=== PATIENT | female | born 1945 | race Caucasian/White ===

== ENCOUNTER → 2016-10-03 | Outpatient (CLI) | payer MEDICARE ==
--- NOTE | 2016-10-07 07:33 | MM ---
Reason for exam: screening (asymptomatic). Last mammogram was performed 1 year and 1 month ago. History: Patient is postmenopausal. Family history of breast cancer in aunt. Took hormonal contraceptives for 3 years beginning at age 23. Physical Findings: A clinical breast exam by your physician is recommended on an annual basis and results should be correlated with mammographic findings. MG 3D Screening Mammo W/Cad Bilateral CC and MLO view(s) were taken. Prior study comparison: September 06, 2015, bilateral MG 3d screening mammo w/cad. July 26, 2014, bilateral MG screening mammo w CAD. December 28, 2012, bilateral digital screening mammo w/CAD. November 23, 2010, bilateral digital screening mammo w/CAD. The breast tissue is heterogeneously dense. This may lower the sensitivity of mammography. There is chronic nodularity in the left breast. Asymmetric density far posteriorly and inferiorly in the right breast incompletely disperses. ASSESSMENT: Incomplete: need additional imaging evaluation, BI-RAD 0 RECOMMENDATION: Special view mammogram of the right breast. If lesion persists on supplemental views, image directed ultrasound is recommended. [facility] will attempt to contact patient to return for supplemental views and ultrasound if indicated.
== END | disposition home or self-care (01) ==
LOC: RADMAMWWP 09:33
PROVIDERS: ATTEND Family Medicine
DX: Z12.31 Encounter for screening mammogram for malignant neoplasm of breast (principal)
CPT/HCPCS: 77063; G0202

== ENCOUNTER → 2016-10-08 | Outpatient (CLI) | payer MEDICARE ==
--- NOTE | 2016-10-08 09:46 | MM ---
Reason for exam: additional evaluation requested from abnormal screening. Last mammogram was performed less than 1 month ago. History: Patient is postmenopausal and has history of other cancer at age 70. Family history of prostate cancer in cousin and breast cancer in aunt. Took hormonal contraceptives for 3 years beginning at age 23. 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 MG 3D Work Up W/Cad RT MLO and LM view(s) were taken of the right breast. Prior study comparison: October 03, 2016, bilateral MG 3d screening mammo w/cad. September 06, 2015, bilateral MG 3d screening mammo w/cad. July 26, 2014, bilateral MG screening mammo w CAD. Asymmetric density does not persist as distinct lesion on additional views. These results were verbally communicated with the patient and result sheet given to the patient on 10/08/16. ASSESSMENT: Benign, BI-RAD 2 RECOMMENDATION: Return to routine screening mammogram schedule for both breasts.
== END ==
LOC: RADMAMWWP 08:45
PROVIDERS: ATTEND Family Medicine
DX: R92.8 Other abnormal and inconclusive findings on diagnostic imaging of breast (principal)
CPT/HCPCS: G0206; G0279

== ENCOUNTER → 2017-06-02 | Outpatient (CLI) | payer MEDICARE ==
[2017-06-02 12:50] LABS: Blood Urea Nitrogen 14 mg/dL (7-17); Non-African American GFR(MDRD) >60 (>60 ml/min/1.73 sqM)
--- NOTE | 2017-06-02 14:46 | CT ---
EXAMINATION TYPE: CT ChestAbdPelvis w con DATE OF EXAM: 06/02/2017 COMPARISON: 06/07/2016 HISTORY: Follow up ovarian cancer. Mid Abdominal pain for [address] DLP: 1690 mGycm. Automated Exposure Control for Dose Reduction was Utilized. CONTRAST: CT scan of the thorax, abdomen and pelvis is performed with IV Contrast, patient injected with 100 mL of Omnipaque 300. FINDINGS: LUNGS: The lungs are grossly clear, there is no concerning parenchymal mass or nodule identified. E longated area within the right middle lobe on series 4 image 30 measures rThere 6 mm and is similar t o the prior exam of 06/07/2016 and favored to represent chronic atelectasis or scarring. There is aga in chronic right hemidiaphragm elevation and right basilar atelectasis. Is no pleural effusion or pne umothorax seen. The tracheobronchial tree is patent. MEDIASTINUM: There are no greater than 1 cm hilar or mediastinal lymph nodes. No pericardial effusi on is seen. OTHER: No additional significant abnormality is seen. LIVER/GB: Within segment 7 of the right hepatic lobe there is a 7 mm hypoattenuated hepatic lesion th at is similar in size to the prior exam of 06/07/2016. No new hepatic lesions are identified. No intr ahepatic biliary ductal dilatation. No subcapsular implants are seen along the liver. No liver parenc hymal involvement. PANCREAS: No significant abnormality is seen. SPLEEN: No significant abnormality is seen. ADRENALS: Right adrenal gland nodule measures 2.0 x 2.2 cm and is not compatible with a simple cyst. This is minimally increased from the prior exam. KIDNEYS: No significant abnormality is seen. Bilateral extrarenal pelvises are noted. BOWEL: Postsurgical changes are seen at the rectosigmoid junction with decompression of the sigmoid c olon. No evidence of bowel obstruction. GENITAL ORGANS: Uterus is surgically absent. Ovaries are likely surgically absent LYMPH NODES: No greater than 1cm abdominal or pelvic lymph nodes are appreciated. OSSEOUS STRUCTURES: Mild multilevel degenerative changes of the thoracolumbar and lumbosacral spine a re present without suspicious osseous lesion. OTHER: In the region of the gastrohepatic ligament and just superior to the greater curvature and les ser curvature of the stomach on series 3 image 51 and on series 5 image 25 there are innumerable vert ebral soft tissue attenuated nodules which could represent omental metastasis, adenopathy or less lik rafiq varices. Spleen is not enlarged and there are no other signs of portal venous hypertension. IMPRESSION: 1. Numerous mesenteric nodules in the region of the gastrohepatic ligament and perihepatic regions wh ich could represent adenopathy, omental metastasis or less likely varices. These are not well appreci ated on the prior examination as there was abdominal ascites that has is now resolved. 2. Stable singular hepatic lesion in comparison to exam of 06/07/2016. Continued surveillance is deandre mmended. No evidence of subserosal implants or liver parenchymal involvement in this patient with his tory of ovarian cancer. 3. Minimally enlarging right adrenal gland nodule. Further characterization with MR could be performe d if clinically indicated.
== END | disposition home or self-care (01) ==
LOC: RADCTMAIN 12:10
PROVIDERS: ATTEND Internal Medicine Hematology & Oncology
DX: C56.9 Malignant neoplasm of unspecified ovary (principal); K76.9 Liver disease, unspecified; E27.9 Disorder of adrenal gland, unspecified
CPT/HCPCS: 82565; 84520; 71260; 74177; 36415; Q9967

== ENCOUNTER → 2017-08-18 | Outpatient (CLI) | payer MEDICARE ==
[2017-08-18 12:19] LABS: Blood Urea Nitrogen 11 mg/dL (7-17)
--- NOTE | 2017-08-18 13:35 | CT ---
EXAMINATION TYPE: CT ChestAbdPelvis w con DATE OF EXAM: 08/18/2017 COMPARISON: Prior CT 06/02/2017 HISTORY: Patient complains of periumbilical pain. Patient has known history of ovarian CA. CT DLP: 1271.6 mGycm Automated exposure control for dose reduction was used. CONTRAST: CT scan of the chest, abdomen and pelvis is performed with Oral Contrast and with IV Contrast, patien t injected with 100 mL of Omnipaque 300. FINDINGS: LUNGS: The lungs are stable. There is no pleural effusion or pneumothorax seen. The tracheobronchial tree is patent. MEDIASTINUM: There are no greater than 1 cm hilar or mediastinal lymph nodes. No pericardial effusi on is seen. AORTA: No significant abnormality is seen. OTHER: Within the abdomen there are multiple nodular mesenteric soft tissue lesions similar to prior exam. At least one nodule on image 89 was not seen on prior exam and shows a short axis measurement of only 5 mm. LIVER/GB: No significant interval change is appreciated. PANCREAS: No significant abnormality is seen. SPLEEN: No significant abnormality is seen. ADRENALS: No significant interval change. Nodules are present right greater than left KIDNEYS: Similar to prior. REPRODUCTIVE ORGANS: Postop changes are present. BOWEL: Postop change noted in the rectosigmoid colon. Soft tissue nodule is present in the presacral region measuring 14 mm in short axis on image #98 FREE AIR: No Free Air visible. ASCITES: None seen. RETROPERITONEAL ADENOPATHY: No retroperitoneal adenopathy is seen. LYMPH NODES: No greater than 1 cm abdominal or pelvic lymph nodes are appreciated. URINARY BLADDER: No significant abnormality is seen. PELVIC ADENOPATHY: None visualized. OSSEOUS STRUCTURES: No significant abnormality is seen. IMPRESSION: Findings are similar to prior. There may be a slight increase in tumor burden.
== END | disposition home or self-care (01) ==
LOC: RADCTMAIN 11:32
PROVIDERS: ATTEND Internal Medicine Hematology & Oncology
DX: K66.8 Other specified disorders of peritoneum (principal); C56.9 Malignant neoplasm of unspecified ovary; M79.89 Other specified soft tissue disorders; Z98.890 Other specified postprocedural states
CPT/HCPCS: 82565; 84520; 71260; 74177; 36415; Q9967

== ENCOUNTER → 2017-09-29 | Outpatient (CLI) | payer MEDICARE ==
[2017-09-29 08:54] LABS: Blood Urea Nitrogen 19 mg/dL (7-17)
--- NOTE | 2017-09-29 11:12 | CT ---
EXAMINATION TYPE: CT ChestAbdPelvis w con DATE OF EXAM: 09/29/2017 COMPARISON: NONE HISTORY: Ovarian cancer, follow up CT DLP: 1355.1 mGycm. Automated Exposure Control for Dose Reduction was Utilized. CONTRAST: CT scan of the thorax, abdomen and pelvis is performed with IV Contrast, patient injected with 100 mL of Omnipaque 300. FINDINGS: LUNGS: There is chronic right hemidiaphragm elevation is seen as prior images and right basilar subse gmental atelectasis. Right middle lobe atelectasis is also seen as well as an elongated area of scarr ing within the right middle lobe on series 4 image 28. This is stable from prior exams. The lungs are otherwise clear, there is no concerning parenchymal mass or nodule identified. There is no pleural effusion or pneumothorax seen. The tracheobronchial tree is patent. MEDIASTINUM: There are no greater than 1 cm hilar or mediastinal lymph nodes. No pericardial effusi on is seen. OTHER: There is a small hiatal hernia noted. LIVER/GB: New subcapsular implant is seen along the liver on series 3 image 46 measuring 4.5 x 2.4 ce ntimeters with more crescentic area of fluid around the right hepatic lobe on series 3 image 46. This is elongated in transverse dimension greater than anterior posterior dimension representing a subser osal implant rather than liver parenchymal invasion. The previously noted 7 mm hypoattenuated right h epatic lobe lesion on series 3 image 37 has been stable since exam of 06/07/2016. Gallbladder surgica lly absent. PANCREAS: No significant abnormality is seen. SPLEEN: No significant abnormality is seen. ADRENALS: Again there is a right adrenal gland nodule measuring approximately 2.3 x 2.1 cm, not corrie tible with a simple cyst. This is overall similar to the exam of 08/18/2017. KIDNEYS: Extrarenal pelvises sees are again noted. Kidneys enhance symmetrically without hydronephros is. BOWEL: Rectosigmoid anastomosis is again seen with mild presacral inflammatory fat stranding and are a of soft tissue nodularity that is similar to the prior on series 3 image 96. GENITAL ORGANS: Uterus is surgically absent and ovaries are presumed to be surgically absent as well. LYMPH NODES/MESENTERY: The previously seen numerous mesenteric nodules and omental nodules within the gastrohepatic ligament, right lower quadrant mesentery, low pelvis centrally and anterior central me sentery of the pelvis have increased in size. For example mesenteric nodule on series 3 image 67 terry ures 1.2 x 1.4 cm and previously measured 6 x 5 mm. OSSEOUS STRUCTURES: Moderate degenerative changes of the visualized spine, femoral acetabular joints, and sacroiliac joints are seen. Scattered femoral head probable bone islands are noted. IMPRESSION: 1. Progression of disease. New subserosal hepatic metastatic implant without current liver parenchyma l invasion measuring 4.5 x 2.4 cm and increase in size of the scattered mesenteric metastatic nodules (likely a combination of omental implants and adenopathy). 2. Stability of the right adrenal gland nodule. 3. No new evidence of metastatic disease within the chest.
== END | disposition home or self-care (01) ==
LOC: RADCTMAIN 08:15
PROVIDERS: ATTEND Internal Medicine Hematology & Oncology
DX: C78.7 Secondary malignant neoplasm of liver and intrahepatic bile duct (principal); C56.9 Malignant neoplasm of unspecified ovary; E27.8 Other specified disorders of adrenal gland; Z96.89 Presence of other specified functional implants
CPT/HCPCS: 82565; 84520; 71260; 74177; 36415; Q9967

== ENCOUNTER → 2018-01-23 | Outpatient (CLI) | payer MEDICARE ==
--- NOTE | 2018-01-23 13:20 | CT ---
EXAMINATION TYPE: CT ChestAbdPelvis w con DATE OF EXAM: 01/23/2018 COMPARISON: CT chest abdomen and pelvis September 29, 2017 and older studies. HISTORY: Ovarian Cancer, Observe for Mets. Completed chemotherapy December 30, 2017. Originally diagnosed 1.[address] DLP: 1781 mGycm. Automated Exposure Control for Dose Reduction was Utilized. CONTRAST: CT scan of the thorax, abdomen and pelvis is performed with IV Contrast, patient injected with 100 ml mL of Isovue 300. FINDINGS: LUNGS: There are small right pleural effusion on current study increased in size from prior. No suspi cious new parenchymal nodule or mass is present bilaterally. Elevated right hemidiaphragm is redemons trated. MEDIASTINUM: There are no greater than 1 cm hilar or mediastinal lymph nodes. No pericardial effusi on is seen. Mild cardiomegaly is redemonstrated. OTHER: There is stable prominent tissue medial inferior left breast axial image 31 not significantly changed from June 07, 2016 CT LIVER/GB: Small amount of perihepatic fluid laterally is redemonstrated slightly less prominent. Ante rior component is improved. There is stable subcentimeter hypodense lesion posterior right hepatic do me axial image 37 unchanged back to June 07, 2016 CT. Cholecystectomy clips are redemonstrated. PANCREAS: No significant abnormality is seen. SPLEEN: There is 1.1 cm splenic lesion axial image 51 stable or slightly more prominent from prior st and new from 2016. ADRENALS: Right adrenal mass measures 2.3 x 1.8 cm current study axial image 50 not significantly chadwick nged from priors. KIDNEYS: No significant abnormality is seen. BOWEL: Oral contrast reaches level of hepatic flexure. There is no suspicious small or large bowel di latation. There is lipomatous hypertrophy at the ileocecal valve redemonstrated. There are surgical s utures near sigmoid rectal junction axial image 101 redemonstrated. GENITAL ORGANS: Uterus is surgically absent. LYMPH NODES: Irregular mesenteric nodular thickening is redemonstrated difficult to accurately measur e due to linear extension. No significant change from most recent study seen best near axial image 86 . For reference a nodular component measuring 1.0 cm long axis axial image 81 is not significantly ch anged from prior study axial image 74. Omental nodularity seen on May 2016 study is less well id entified on current or most recent prior study. OSSEOUS STRUCTURES: There is moderate multilevel spurring in the visualized spine. There is multileve l disc space narrowing and vacuum disc phenomenon. There is moderate to severe joint space loss as we ll as subchondral cystic change and spurring in both hips. OTHER: No significant additional abnormality is seen. IMPRESSION: 1. New or increasing size small right pleural effusion on current exam. 2. Nonvisualization of anterior subserosal liver lesion current study suggests positive treatment res ponse or resolution of nondependent fluid collection. No new abdominal ascites or omental caking is e vident. Stable nonspecific mesenteric nodularity and irregularity. Stable right adrenal mass.
== END | disposition home or self-care (01) ==
LOC: RADCTMAIN 10:29
PROVIDERS: ATTEND Internal Medicine Hematology & Oncology
DX: C56.9 Malignant neoplasm of unspecified ovary (principal); J90 Pleural effusion, not elsewhere classified; K76.9 Liver disease, unspecified; E27.8 Other specified disorders of adrenal gland; K66.8 Other specified disorders of peritoneum
CPT/HCPCS: 82565; 84520; 71260; 74177; 36415; Q9967

== ENCOUNTER → 2018-02-03 | Outpatient (CLI) | payer MEDICARE ==
--- NOTE | 2018-02-04 11:18 | ECHOF ---
Referral Reason:Z01.818 Chemo, C56.9 Ovarian Cancer MEASUREMENTS -------- HEIGHT: 160.0 cm WEIGHT: 95.3 kg BP: RVIDd: 2.7 cm (< 3.3) IVSd: 0.9 cm (0.6 - 1.1) LVIDd: 5.3 cm (3.9 - 5.3) LVPWd: 1.1 cm (0.6 - 1.1) IVSs: 1.2 cm LVIDs: 4.0 cm LVPWs: 1.2 cm LAESV Index (A-L): 40.80 ml/m Ao Diam: 2.8 cm (2.0 - 3.7) AV Cusp: 1.7 cm (1.5 - 2.6) LA Diam: 4.0 cm (2.7 - 3.8) EPSS: 0.9 cm MV E Vladimir: 0.73 m/s MV DecT: 252 ms MV A Vladimir: 0.78 m/s MV E/A Ratio: 0.93 RAP: 5.00 mmHg RVSP: 24.85 mmHg MV EF SLOPE: 93.57 mm/s (70 - 150) MV EXCURSION: 1.35 cm (> 18.000) FINDINGS -------- Atrial fibrillation. This was a technically adequate study. The left ventricular size is normal. Left ventricular wall thickness is normal. There is mild hermann bal hypokinesis of LV . Overall left ventricular systolic function is mildly impaired with, an EF b etween 45 - 50 %. The right ventricle is normal in size and function. LA is severely dilated >40 ml/m2 RA appears enlarged. Aortic valve is trileaflet and is mildly thickened. Trace amount of aortic regurgitation. There is no evidence of aortic stenosis. The mitral valve leaflets are mildly thickened. Mild mitral regurgitation is present. Trace tricuspid regurgitation present. Right ventricular systolic pressure is normal at < 35 mmHg. There is no evidence of pulmonary hypertension. Trace/mild (physiologic) pulmonic regurgitation. The aortic root size is normal. Normal inferior vena cava with normal inspiratory collapse consistent with estimated right atrial pre ssure of 5 mmHg. There is no pericardial effusion. CONCLUSIONS -------- 1. Atrial fibrillation. 2. This was a technically adequate study. 3. The left ventricular size is normal. 4. Left ventricular wall thickness is normal. 5. There is mild global hypokinesis of LV . 6. Overall left ventricular systolic function is mildly impaired with, an EF between 45 - 50 %. 7. LA is severely dilated >40 ml/m2 8. RA appears enlarged. 9. Aortic valve is trileaflet and is mildly thickened. 10. Trace amount of aortic regurgitation. 11. The mitral valve leaflets are mildly thickened. 12. Mild mitral regurgitation is present. 13. Trace tricuspid regurgitation present. 14. Right ventricular systolic pressure is normal at < 35 mmHg. 15. There is no evidence of pulmonary hypertension. 16. Trace/mild (physiologic) pulmonic regurgitation. 17. The aortic root size is normal. 18. There is no pericardial effusion. TRAINMAN: Gee Phillips RDCS
== END | disposition home or self-care (01) ==
LOC: RADECHMAIN 15:20
PROVIDERS: ATTEND Internal Medicine Hematology & Oncology
DX: Z01.818 Encounter for other preprocedural examination (principal); C56.9 Malignant neoplasm of unspecified ovary; I48.91 Unspecified atrial fibrillation; I08.0 Rheumatic disorders of both mitral and aortic valves; R93.1 Abnormal findings on diagnostic imaging of heart and coronary circulation
CPT/HCPCS: 93306

== ENCOUNTER 2018-03-31 14:33 | Inpatient (IN) | payer MEDICARE ==
[2018-03-31] MEDS ORDERED: DILTIAZEM DRIP BOLUS FROM BAG 1 MG SOLN IV ONE (14:57)
--- NOTE | 2018-03-31 15:00 | ED ---
General Adult HPI - General Chief complaint: Shortness of Breath Stated complaint: heart rate-sent by Dr. Badillo Time Seen by Provider: 03/31/18 14:51 Source: patient, family, RN notes reviewed Mode of arrival: ambulatory Limitations: no limitations - History of Present Illness Initial comments: Patient is a pleasant 72-year-old female presenting to the emergency department with concerns for tachycardia. Patient was seen today by Dr. Badillo who advised her to come to the emergency department. He did call and speak with me. Patient does see Dr. Badillo for a known history of ovarian cancer and is on chemotherapy, last dose was close to one month ago. Patient has been having aches. Seen some palpitations over the past several days. Heart rate has been between 101 20. No chest pain. Patient is starting to feel a little short of breath over the past several days. Patient does have some minimal leg swelling. No calf tenderness. No fevers. No cough. Patient has a known history of atrial fibrillation and is on Eliquis. - Related Data Home Medications Medication Instructions Recorded Confirmed Calcium Carbonate [Calcium] 600 mg PO DAILY #0 03/04/16 03/31/18 Cholecalciferol [Vitamin D3] 2,000 unit PO DAILY 03/04/16 03/31/18 Metoprolol Tartrate [Lopressor] 50 mg PO BID 05/16/16 03/31/18 Furosemide [Lasix] 20 mg PO DAILY PRN 03/31/18 03/31/18 Lisinopril [Zestril] 10 mg PO BID 03/31/18 03/31/18 Previous Rx's Medication Instructions Recorded Apixaban [Eliquis] 5 mg PO BID #30 tab 03/06/16 Allergies Allergy/AdvReac Type Severity Reaction Status Date / Time No Known Allergies Allergy Verified 03/31/18 15:54 Review of Systems ROS Statement: Those systems with pertinent positive or pertinent negative responses have been documented in the HPI. ROS Other: All systems not noted in ROS Statement are negative. Constitutional: Denies: fever Eyes: Denies: eye pain ENT: Denies: ear pain Respiratory: Reports: dyspnea. Denies: cough Cardiovascular: Reports: palpitations. Denies: chest pain Endocrine: Reports: fatigue Gastrointestinal: Denies: abdominal pain Genitourinary: Denies: dysuria Musculoskeletal: Denies: back pain Skin: Denies: rash Neurological: Denies: weakness Past Medical History Past Medical History: Atrial Fibrillation, Hyperlipidemia, Hypertension History of Any Multi-Drug Resistant Organisms: None Reported Past Surgical History: Appendectomy, Cholecystectomy, Hysterectomy, Tonsillectomy, Tubal Ligation Additional Past Surgical History / Comment(s): colonoscopies, cervical polypectomy, couple of D&Cs, debulking Past Anesthesia/Blood Transfusion Reactions: No Reported Reaction Past Psychological History: No Psychological Hx Reported Smoking Status: Never smoker Past Alcohol Use History: Rare Past Drug Use History: None Reported - Past Family History Mother Family Medical History: AFIB, Chest Pain / Angina, Diabetes Mellitus, Hypertension Additional Family Medical History / Comment(s): Mother is 90 yrs old. Father Family Medical History: Cancer Additional Family Medical History / Comment(s): Father of lung cancer at the age of 78yrs. General Exam Limitations: no limitations General appearance: alert, in no apparent distress Head exam: Present: atraumatic Eye exam: Present: normal appearance, PERRL ENT exam: Present: normal oropharynx Neck exam: Present: normal inspection Respiratory exam: Present: normal lung sounds bilaterally Cardiovascular Exam: Present: tachycardia, irregular rhythm GI/Abdominal exam: Present: soft. Absent: tenderness Extremities exam: Present: pedal edema (+1 bilaterally). Absent: calf tenderness Neurological exam: Present: alert Psychiatric exam: Present: normal affect, normal mood Skin exam: Present: normal color Course Vital Signs 03/31/18 03/31/18 03/31/18 14:41 14:51 14:52 Temperature 97.4 F L Pulse Rate 137 H Pulse Rate [ 155 H [employer] ] Respiratory 16 16 Rate Blood Pressure 150/101 O2 Sat by Pulse 95 Oximetry 03/31/18 03/31/18 03/31/18 15:34 15:58 16:04 Temperature Pulse Rate 137 H 133 H 120 H Pulse Rate [ [employer] ] Respiratory 16 16 Rate Blood Pressure 149/107 106/73 134/73 O2 Sat by Pulse 98 Oximetry 03/31/18 16:14 Temperature Pulse Rate 100 Pulse Rate [ [employer] ] Respiratory Rate Blood Pressure 124/81 O2 Sat by Pulse Oximetry EKG Findings - EKG Comments: EKG Findings:: A. fib with rate of 142. QRS 120. QT 292. QTC 449. Normal axis.RSR in lead V1. Inferior T wave inversion. There is also T-wave inversion leads V3 through V6. Medical Decision Making - Medical Decision Making Patient reevaluated and resting comfortably in bed. Patient and family updated on results and plan. Dr. Romero has been paged for admission for Dr. Roberts. - Lab Data Result diagrams: 03/31/18 15:17 03/31/18 15:17 Lab Results 03/31/18 03/31/18 03/31/18 Range/Units 15:17 15:17 15:17 WBC 2.2 L (3.8-10.6) k/uL RBC 4.09 (3.80-5.40) m/uL Hgb 12.7 (11.4-16.0) gm/dL Hct 40.0 (34.0-46.0) % MCV 97.7 (80.0-100.0) fL MCH 30.9 (25.0-35.0) pg MCHC 31.7 (31.0-37.0) g/dL RDW 18.0 H (11.5-15.5) % Plt Count 74 L (150-450) k/uL Neutrophils % 45 % Lymphocytes % 40 % Monocytes % 10 % Eosinophils % 1 % Basophils % 1 % Neutrophils # 1.0 L (1.3-7.7) k/uL Lymphocytes # 0.9 L (1.0-4.8) k/uL Monocytes # 0.2 (0-1.0) k/uL Eosinophils # 0.0 (0-0.7) k/uL Basophils # 0.0 (0-0.2) k/uL Manual Slide Review Performed Polychromasia Present Poikilocytosis (manual Present Anisocytosis Slight Macrocytosis Slight PT (9.0-12.0) sec INR (<1.2) APTT (22.0-30.0) sec Sodium 142 (137-145) mmol/L Potassium 4.7 (3.5-5.1) mmol/L Chloride 107 (98-107) mmol/L Carbon Dioxide 24 (22-30) mmol/L Anion Gap 11 mmol/L BUN 23 H (7-17) mg/dL Creatinine 0.90 (0.52-1.04) mg/dL Est GFR (CKD-EPI)AfAm 75 (>60 ml/min/1.73 sqM) Est GFR (CKD-EPI)NonAf 65 (>60 ml/min/1.73 sqM) Glucose 112 H (74-99) mg/dL Calcium 9.0 (8.4-10.2) mg/dL Magnesium 1.2 L (1.6-2.3) mg/dL Total Bilirubin 0.8 (0.2-1.3) mg/dL AST 32 (14-36) U/L ALT 27 (9-52) U/L Alkaline Phosphatase 86 (38-126) U/L Total Creatine Kinase 50 (30-135) U/L CK-MB (CK-2) 0.5 (0.0-2.4) ng/mL CK-MB (CK-2) Rel Index 1.0 Troponin I 0.012 (0.000-0.034) ng/mL NT-Pro-B Natriuret Pep pg/mL Total Protein 6.6 (6.3-8.2) g/dL Albumin 3.8 (3.5-5.0) g/dL TSH 2.870 (0.465-4.680) mIU/L Free T4 2.04 (0.78-2.19) ng/dL Free T3 pg/mL 4.2 (2.8-5.3) pg/ml 03/31/18 03/31/18 Range/Units 15:17 15:17 WBC (3.8-10.6) k/uL RBC (3.80-5.40) m/uL Hgb (11.4-16.0) gm/dL Hct (34.0-46.0) % MCV (80.0-100.0) fL MCH (25.0-35.0) pg MCHC (31.0-37.0) g/dL RDW (11.5-15.5) % Plt Count (150-450) k/uL Neutrophils % % Lymphocytes % % Monocytes % % Eosinophils % % Basophils % % Neutrophils # (1.3-7.7) k/uL Lymphocytes # (1.0-4.8) k/uL Monocytes # (0-1.0) k/uL Eosinophils # (0-0.7) k/uL Basophils # (0-0.2) k/uL Manual Slide Review Polychromasia Poikilocytosis (manual Anisocytosis Macrocytosis PT 11.7 (9.0-12.0) sec INR 1.2 H (<1.2) APTT 22.0 (22.0-30.0) sec Sodium (137-145) mmol/L Potassium (3.5-5.1) mmol/L Chloride (98-107) mmol/L Carbon Dioxide (22-30) mmol/L Anion Gap mmol/L BUN (7-17) mg/dL Creatinine (0.52-1.04) mg/dL Est GFR (CKD-EPI)AfAm (>60 ml/min/1.73 sqM) Est GFR (CKD-EPI)NonAf (>60 ml/min/1.73 sqM) Glucose (74-99) mg/dL Calcium (8.4-10.2) mg/dL Magnesium (1.6-2.3) mg/dL Total Bilirubin (0.2-1.3) mg/dL AST (14-36) U/L ALT (9-52) U/L Alkaline Phosphatase (38-126) U/L Total Creatine Kinase (30-135) U/L CK-MB (CK-2) (0.0-2.4) ng/mL CK-MB (CK-2) Rel Index Troponin I (0.000-0.034) ng/mL NT-Pro-B Natriuret Pep 6070 pg/mL Total Protein (6.3-8.2) g/dL Albumin (3.5-5.0) g/dL TSH (0.465-4.680) mIU/L Free T4 (0.78-2.19) ng/dL Free T3 pg/mL (2.8-5.3) pg/ml - Radiology Data Radiology results: image reviewed (Chest x-ray shows right-sided effusion and small left-sided effusion.) Critical Care Time Critical Care Time: Yes Total Critical Care Time: 33 Disposition Clinical Impression: Atrial fibrillation with RVR, Hypomagnesemia, Pleural effusion Disposition: ADMITTED IP TO THIS [facility] Is patient prescribed a controlled substance at d/c from ED?: No Referrals: Sergey Roberts DO [Primary Care Provider] - 1-2 days Decision Time: 16:34
[2018-03-31] MEDS: DILTIAZEM 50 MG in SODIUM CHLORIDE 0.9% 40 ML IV SCH ×2 (15:34→20:00)
[2018-03-31 15:35] LABS: Anisocytosis Slight; Basophils % (A) 1 %; Eosinophils % (A) 1 %; HGB 12.7 gm/dL (11.4-16.0); Lymphocytes # (A) 0.9 k/uL (1.0-4.8); Lymphocytes % (A) 40 %; MCH 30.9 pg (25.0-35.0); MCHC 31.7 g/dL (31.0-37.0); MCV 97.7 fL (80.0-100.0); Macrocytosis Slight; Mean Platelet Volume 7.9; Monocytes # (A) 0.2 k/uL (0-1.0); Monocytes % (A) 10 %; Neutrophils % (A) 45 %; RBC 4.09 m/uL (3.80-5.40); WBC 2.2 k/uL (3.8-10.6)
[2018-03-31 15:39] LABS: Albumin 3.8 g/dL (3.5-5.0); Magnesium 1.2 mg/dL (1.6-2.3); Total Bilirubin 0.8 mg/dL (0.2-1.3); Total Protein 6.6 g/dL (6.3-8.2)
[2018-03-31 15:44] LABS: Potassium 4.7 mmol/L (3.5-5.1)
[2018-03-31 15:55] LABS: Platelet Count 74 k/uL (150-450); Poikilocytosis (M) Present; Polychromasia Present; T4, Free (Free Thyroxine) 2.04 ng/dL (0.78-2.19)
[2018-03-31 15:56] LABS: INR 1.2 (<1.2); Prothrombin Time 11.7 sec (9.0-12.0)
[2018-03-31 16:03] LABS: Creatine Kinase MB 0.5 ng/mL (0.0-2.4); Troponin I 0.012 ng/mL (0.000-0.034)
--- NOTE | 2018-03-31 16:28 | XR ---
EXAMINATION: XR chest 2V DATE AND TIME: 03/31/2018 3:48 PM CLINICAL INDICATION: dysrhythmia, shortness of breath TECHNIQUE: AP and lateral COMPARISON: 03/04/2016 FINDINGS: The pleural effusions seen on the prior study of increased. On the right, a large pleural effusion previously was seen level that the infrahilar position, now it is at the hilar level. There is associated passive atelectasis of the right lower lobe and right mid dle lobe, with mild partial right upper lobe atelectasis. No right-sided pneumothorax. On the left the formerly mild pleural effusion is now [id number] in its volume. There is associ ated partial passive atelectasis of the left lower lobe. No left-sided pneumothorax. Evaluation of the inflated lungs shows relatively normal arborization of the pulmonary vasculature bi laterally there is engorgement of the pulmonary vasculature centrally, but no reticular or alveolar s pace process. Moderately enlarged cardiac silhouette and mild tortuosity of the thoracic aorta redemonstrated. Bones and soft tissues are negative for acute findings. IMPRESSION: INCREASING PLEURAL EFFUSIONS, MARKED ON THE RIGHT AND [id number] ON THE LEFT; ASSOCIATED BILATE RAL PASSIVE ATELECTASIS PATTERN.
[2018-03-31] MEDS ORDERED: MAGNESIUM OXIDE 400 MG TAB PO STA (16:32)
[2018-03-31] MEDS ORDERED: NALOXONE 0.4 MG/ML 1 ML VIAL IV PRN (16:34)
[2018-03-31] MEDS ORDERED: FUROSEMIDE 10 MG/ML 4 ML VIAL IV STA (16:34)
[2018-03-31] MEDS: SODIUM CHLORIDE 0.9% 1,000 ML IV SCH (17:36)
[2018-03-31] MEDS: MAGNESIUM SULFATE-D5W PMX 1 GM in DEXTROSE/WATER 1 100ML.BAG IVPB SCH ×2 (17:36→20:00)
[2018-03-31 18:36] VITALS: BMI 37.4
[2018-03-31] MEDS: MAGNESIUM OXIDE 400 MG TAB PO SCH (20:00)
[2018-03-31] MEDS: LISINOPRIL 10 MG TAB PO SCH (21:47)
[2018-03-31] MEDS: APIXABAN 5 MG TAB PO SCH (21:47)
[2018-03-31] MEDS: METOPROLOL TARTRATE 50 MG TAB PO SCH (21:47)
[2018-03-31 22:18] LABS: Creatine Kinase MB 0.5 ng/mL (0.0-2.4); Troponin I 0.014 ng/mL (0.000-0.034)
[2018-03-31] MEDS ORDERED: MELATONIN 3 MG TABLET PO PRN (22:32)
[2018-03-31] MEDS ORDERED: ONDANSETRON 4 MG/2 ML VIAL IVP PRN (22:32)
[2018-03-31] MEDS ORDERED: ACETAMINOPHEN TAB 325 MG TAB PO PRN (22:32)
[2018-03-31] MEDS ORDERED: CALCIUM CARBONATE 500 MG CHEWABLE PO PRN (22:32)
[2018-03-31] MEDS ORDERED: LORazepam 0.5 MG TAB PO PRN (22:32)
--- NOTE | 2018-03-31 23:09 | HP ---
HISTORY AND PHYSICAL DATE OF ADMISSION: 03/31/2018 DATE OF SERVICE: 03/31/2018 PRESENTING COMPLAINT: Short of breath. HISTORY OF PRESENTING COMPLAINT: This is a very pleasant 72-year-old patient who follows with Dr. Roberts. The patient's oncologist is Dr. Badillo. The patient has a diagnosis of ovarian cancer. The patient is getting a third category of chemotherapy and she says she is going through a second cycle. She had gone for a checkup to him today. She had been getting short of breath for about a week, very subtle fluttering; no dizziness; no lightheadedness; very mild edema. No chest pressure. She was found to be in atrial flutter/fibrillation with a rapid ventricular rate and was hence sent down to the ER. The patient was started on IV Cardizem drip. Still the patient is running in the 110s to the 130s, though patient feels a bit better. No chest pain. Cardiology is consulted for the same. REVIEW OF SYSTEMS: CONSTITUTIONAL: Tired. HEENT: None. RESPIRATORY: As above. CARDIOVASCULAR: As above. GASTROINTESTINAL: None. GENITOURINARY: Urinary incontinence. DERMATOLOGICAL: None. HEMATOLOGICAL: None. LYMPHATICS: None. PSYCHIATRY: None. NEUROLOGICAL: None. PAST MEDICAL HISTORY: 1. Ovarian cancer, being followed by Dr. Badillo. 2. Hypertension. 3. Hyperlipidemia. 4. Atrial flutter. PAST SURGICAL HISTORY: 1. Appendectomy. 2. Cholecystectomy. 3. Hysterectomy. 4. Tonsillectomy. 5. Tubal ligation. 6. A couple of D&C. SOCIAL HISTORY: . Alcohol rarely. Does not smoke. FAMILY HISTORY: Atrial fibrillation, diabetes, hypertension. HOME MEDICATIONS: 1. Lasix 20 mg p.o. daily p.r.n. 2. Lopressor 50 mg p.o. b.i.d. 3. Zestril 10 mg p.o. b.i.d. 4. Vitamin D3 2000 units p.o. daily. 5. Calcium 600 mg p.o. daily. 6. Eliquis 5 mg p.o. b.i.d. ALLERGIES: DILAUDID. PHYSICAL EXAMINATION: VITAL SIGNS ON PRESENTATION: Temperature 97.4, pulse 137, respiration 16, blood pressure 150/101, pulse ox 95% on room air. GENERAL APPEARANCE: Well built; BMI 37.5. Sitting up, not in distress. EYES: Pupils equal. Conjunctivae normal. HEENT: External appearance of nose and ears normal. Oral cavity normal. NECK: JVD unable to assess. Mass not palpable. RESPIRATORY: Effort normal. LUNGS: Fair air entry. CARDIOVASCULAR: Heart sounds irregular. Minimal edema. ABDOMEN: Distended, soft. Liver and spleen not palpable. LYMPHATIC: No lymph node palpable in neck or axillae. PSYCHIATRY: Alert and oriented x3. Mood and affect normal. NEUROLOGICAL: Pupils equal. Cranial nerves grossly intact. Power and sensation grossly intact. INVESTIGATIONS: White count 2.2, hemoglobin 12.7, platelets 74. Potassium 4.7, BUN 23, creatinine 0.9. Troponin 0.012, 0.014. TSH is normal. EKG tracing interpreted by me shows atrial flutter/fibrillation with . Chest x-ray film interpreted by me shows some cardiomegaly, right pleural effusion, venous prominence. ASSESSMENT: 1. Persistent atrial flutter/fibrillation with rapid ventricular rate. 2. Acute congestive heart failure exacerbation, possibly precipitated by atrial fibrillation; currently ejection fraction is not known. 3. Essential hypertension. 4. Hyperlipidemia. 5. Obesity; body mass index 37.5. 6. Breast cancer, being treated with chemotherapy. 7. Bicytopenia secondary to chemotherapy. PLAN: The patient is currently on a Cardizem drip. She is on Lopressor 50 mg b.i.d., which is her home dose. Will order a 2-D echocardiogram. Start the patient on IV Lasix. Care was discussed with the patient. Questions were answered. MMODL / IJN: [id number] /
[2018-04-01] MEDS: DILTIAZEM 50 MG in SODIUM CHLORIDE 0.9% 40 ML IV SCH ×2 (04:11→11:32)
[2018-04-01 04:13] LABS: Creatine Kinase 50 U/L (30-135)
[2018-04-01 04:26] LABS: Creatine Kinase MB 0.6 ng/mL (0.0-2.4); Troponin I <0.012 ng/mL (0.000-0.034)
[2018-04-01] MEDS: FUROSEMIDE 10 MG/ML 4 ML VIAL IV SCH ×4 (06:38→21:27)
[2018-04-01] MEDS: APIXABAN 5 MG TAB PO SCH (07:47)
[2018-04-01] MEDS: CALCIUM CARB-VIT D 500MG-200UN 1 EACH TAB PO SCH (07:48)
[2018-04-01] MEDS: METOPROLOL TARTRATE 50 MG TAB PO SCH ×3 (07:48→21:26)
[2018-04-01] MEDS: LISINOPRIL 10 MG TAB PO SCH ×2 (07:48→21:26)
[2018-04-01] MEDS: MAGNESIUM OXIDE 400 MG TAB PO SCH ×2 (07:48→21:26)
[2018-04-01] MEDS: CHOLECALCIFEROL 1,000 UNIT TAB PO SCH (07:48)
[2018-04-01] MEDS: DIGOXIN 250 MCG/ML 2 ML AMP IVP SCH ×2 (11:32→17:21)
--- NOTE | 2018-04-01 13:51 | P.CONS ---
History of Present Illness - Reason for Consult Consult date: 04/01/18 Metastatic Ovarian Cancer Requesting physician: Damian Lemos - Chief Complaint Palpitations and SOB - History of Present Illness HPI : This is a very nice lady who presented with abdominal pain and distension for about a month duration. U/S done on 05/10/2016 revealed evidence of ascites. Diagnostic paracentesis done on 05/24/2016,cytology revealed metastatic carcinoma consistent with non mucinous ovarian primary. On 06/03/2016,CA125 was 499. On 06/07/2016,CT scan of chest/abdomen/pelvis revealed ascites,omental cacking and small bilateral pleural effusion. BRCA testing were negative. She underwent optimal debulking surgery on 06/18/2016,R1 resection,her surgery was complicated by PE.Pathology revealed high grade serous adenocarcinoma, positive peritoneal washing and peritoneal mestastasis over 2 cm beyond pelvis and positive mesenteric nodes. She started carboplatin/taxol on 08/05/2016. She completed 6 cycles of adjuvant carboplatin/taxol on 11/18/2016 On 02/27/2017,CA125 was 13.0. On 06/02/2017,repeat CT scan of chest/abdomen/plevis revealed mesenteric nodules in the region of the gastrohepatic ligament and perihepatic regions which could represent adenopathy, omental metastasis,they are not well appreciated on the prior examination as there was abdominal ascites that has is now resolved. On 08/18/2017,repeat CT scan of chest/abdomen/pelvis revealed relatively stable finding compared to prior CT. On 08/26/2017,CA125 was 84.5. On 09/29/2017,repeat CT scan of chest/abdomen/pelvis revealed evidence of disease progression. On 10/07/2017,CA125 was 146.7 She started gemzar/avastin on 10/15/2017 On 01/07/2018,CA125 was up to 205 and carbo/avastin were discontinued On 01/23/2018,repeat CT scan of chest/abdomen/pelvis revealed new small right pleural effusion,otherwise stable.Gemzar/avastin were discontinued. On 01/28/2018,CA125 was 253 On 02/10/2018,she started Carboplatin/Doxil, prior to starting Echocardiogram was completed On 03/04/2018,CA125 was 313.1, Recent follow-up with Dr. Badillo shows Ca125 279 She feels tolerating treatment okay,however,she has had significant exertional dyspnea and palpitation over the last week, this had led her to seek further assessment at [facility] on 04/01/18. She has a known history of A-fib and is on Eliquis 5mg po bid for this. Patient has been having more body aches. [place] increased palpitations over the past several days. Heart rate has been between 101-120. No chest pain. Patient is starting to feel a little short of breath over the past several days. Patient does have some minimal leg swelling. No calf tenderness. No fevers. No cough. She is now admitted on a cardizem drip and Cardiology is following. Her next cycle of chemotherapy is scheduled on 04/07/18. She is status Post Cycle 2 of Doxil and Carboplatin, Neutrophils 03/31/18 - 1, WBC 2.2. She did not receive Neulasta Review of Systems A 14 point review of systems assessed and completed and all negative except HPI Past Medical History Past Medical History: Atrial Fibrillation, Cancer, Hyperlipidemia, Hypertension , Pulmonary Embolus (PE) Additional Past Medical History / Comment(s): Ovarian Cancer History of Any Multi-Drug Resistant Organisms: None Reported Past Surgical History: Appendectomy, Cholecystectomy, Hysterectomy, Tonsillectomy, Tubal Ligation Additional Past Surgical History / Comment(s): colonoscopies, 2x cervical polypectomy, couple of D&Cs, debulking, Past Anesthesia/Blood Transfusion Reactions: No Reported Reaction Past Psychological History: No Psychological Hx Reported Additional Psychological History / Comment(s): Pt resides with her spouse. She is independent. Smoking Status: Never smoker Past Alcohol Use History: Rare Past Drug Use History: None Reported - Past Family History Mother Family Medical History: AFIB, Chest Pain / Angina, Diabetes Mellitus, Hypertension Additional Family Medical History / Comment(s): Mother is 90 yrs old. Father Family Medical History: Cancer Additional Family Medical History / Comment(s): Father of lung cancer at the age of 78yrs. Medications and Allergies Home Medications Medication Instructions Recorded Confirmed Type Calcium Carbonate [Calcium] 600 mg PO DAILY #0 03/04/16 03/31/18 History Cholecalciferol [Vitamin D3] 2,000 unit PO DAILY 03/04/16 03/31/18 History Apixaban [Eliquis] 5 mg PO BID #30 tab 03/06/16 03/31/18 Rx Metoprolol Tartrate [Lopressor] 50 mg PO BID 05/16/16 03/31/18 History Furosemide [Lasix] 20 mg PO DAILY PRN 03/31/18 03/31/18 History Lisinopril [Zestril] 10 mg PO BID 03/31/18 03/31/18 History Allergies Allergy/AdvReac Type Severity Reaction Status Date / Time hydromorphone [From Dilaudid] AdvReac Hallucinati Verified 03/31/18 18:42 ons Physical Exam Vitals: Vital Signs Temp Pulse Pulse Resp BP BP Pulse Ox 04/01/18 12:00 103 H 16 04/01/18 11:28 103 H 16 149/98 93 L 04/01/18 07:44 90 16 04/01/18 07:33 90 16 137/93 92 L 04/01/18 03:25 97.3 F L 108 H 18 131/92 95 04/01/18 00:00 97.2 F L 99 18 151/84 96 03/31/18 20:00 97.1 F L 121 H 18 138/96 93 L 03/31/18 18:19 97.0 F L 132 H 18 136/87 92 L 03/31/18 17:37 97.6 F 122 H 18 134/95 97 03/31/18 16:54 112 H 118/77 03/31/18 16:44 114 H 124/81 03/31/18 16:34 112 H 105/76 03/31/18 16:24 118 H 150/72 03/31/18 16:14 100 124/81 03/31/18 16:04 120 H 16 134/73 03/31/18 15:58 133 H 106/73 03/31/18 15:34 137 H 16 149/107 98 03/31/18 14:52 155 H 03/31/18 14:51 16 03/31/18 14:41 97.4 F L 137 H 16 150/101 95 Intake and Output 03/31/18 04/01/18 04/01/18 22:59 06:59 14:59 Intake Total 22.167 40.917 290 Output Total 300 1000 Balance 22.167 -259.083 -710 Intake: Intake, IV Titration 22.167 40.917 50 Amount Diltiazem 50 mg In Sodium 22.167 40.917 50 Chloride 0.9% 40 ml @ 7. 5 MG/HR 7.5 mls/hr IV . [facility] Rx#:[id number] Oral 240 Output: Urine 300 1000 Other: Voiding Method Toilet Toilet # Voids 2 1 Weight 95.9 kg 96.2 kg General appearance: alert, in no apparent distress Head exam: NC/NT Eye exam: normal appearance, PERRL ENT exam: normal oropharynx, Oral thrush mild base of posterior tongue Neck exam: Supple, Trachea Midline Respiratory exam: No increased respiratory effort normal lung sounds bilaterally Cardiovascular Exam: tachycardia, irregular rhythm GI/Abdominal exam: soft. Absent: tenderness Extremities exam: pedal edema (+1 bilaterally). Absent: calf tenderness Neurological exam: non-focal alert Psychiatric exam: normal affect, normal mood Skin exam: yeast like rash under skin folds abdomen and breast, normal color Results CBC & Chem 7: 03/31/18 15:17 03/31/18 15:17 Labs: Abnormal Lab Results - Last 24 Hours (Table) 03/31/18 03/31/18 03/31/18 Range/Units 15:17 15:17 15:17 WBC 2.2 L (3.8-10.6) k/uL RDW 18.0 H (11.5-15.5) % Plt Count 74 L (150-450) k/uL Neutrophils # 1.0 L (1.3-7.7) k/uL Lymphocytes # 0.9 L (1.0-4.8) k/uL INR 1.2 H (<1.2) BUN 23 H (7-17) mg/dL Glucose 112 H (74-99) mg/dL Magnesium 1.2 L (1.6-2.3) mg/dL Assessment and Plan Plan: Assessment and Recommendations 1. Metastatic Ovarian Cancer: - Status Post Cycle 2 of Doxil and Carboplatin, did not receive neulasta - Cycle 3 is scheduled on 04/07/18 2. Atrial Fibrillation with RVR: - On Eliquis 5mg po BID - Cardiology is Following, will defer need to repeat echocardiogram given patient is on antracycline to Cardiology - Cardizem Drip per Cardiology 3. Skin rash - [place] Appearance under abdominal skin fold and bilateral Breasts - Nystatin Powder ordered 4. Thrombocytopenia - No intervention needed at this time - Monitor CBC - Secondary to recent chemotherapy 5. Leukopenia - Secondary to chemotherapy - Should be in the recovery phase after chemotherapy, continue to monitor. - If Neutrophils drop below 1, will start zarxio Oncology Plan - FOllow-up in Office for CBC and [employer] [facility] on Friday (if discharged by then) for cleance for chemotherapy on Friday. Physician Attestation: I have completed the full history and physical of this patient and agree with above dictation by Lupe Hill NP.
--- NOTE | 2018-04-01 14:59 | P.CRDCN ---
History of Present Illness Consult date: 04/01/18 Requesting physician: Bryce Romero Reason for Consult (text): Afib, pleural effusion Chief complaint: elevated HR, shortness of breath History of present illness: This is a pleasant 72-year-old female patient who follows with Dr. Pearson in the office. She has a history of paroxysmal atrial fibrillation, on Eliquis for anticoagulation, hyperlipidemia, hypertension, and metastatic ovarian cancer. Was sent to the emergency department by Dr. Gibson after noting the patient was tachycardic. She does complain of occasional palpitations as well as some worsening shortness of breath over the last 2 weeks. Upon presentation, patient was found to be in atrial fibrillation with rapid ventricular response. She was initiated on a Cardizem drip and her home metoprolol dose of 50 mg by mouth twice a day was resumed. Chest x-ray showed increasing pleural effusions , marked on the right and mild to moderate on the left as well as associated bilateral passive atelectasis pattern. She's been started on Lasix 40 mg IV push every 8 hours. Laboratory values were reviewed and showed a BUN of 23, creatinine 0.9, magnesium 1.2 which was replaced and is now 1.8, [place] 6070 and troponins negative 3. TSH, T4 and T3 are all within normal limits. Upon examination, patient is sitting up at the side of the bed. She is feeling fairly well. Continues to complain of shortness of breath with activity. He denies current complaints of palpitations, dizziness or lightheadedness. She's had no chest discomfort. She does have mild lower extremity edema that seems to be normal for her. She did have a recent echocardiogram prior to starting current chemotherapy treatment which revealed mild global hypokinesis of the LV with mildly impaired LV systolic function, ejection fraction between 45-50%. Past Medical History Past Medical History: Atrial Fibrillation, Cancer, Hyperlipidemia, Hypertension , Pulmonary Embolus (PE) Additional Past Medical History / Comment(s): Ovarian Cancer History of Any Multi-Drug Resistant Organisms: None Reported Past Surgical History: Appendectomy, Cholecystectomy, Hysterectomy, Tonsillectomy, Tubal Ligation Additional Past Surgical History / Comment(s): colonoscopies, 2x cervical polypectomy, couple of D&Cs, debulking, Past Anesthesia/Blood Transfusion Reactions: No Reported Reaction Past Psychological History: No Psychological Hx Reported Additional Psychological History / Comment(s): Pt resides with her spouse. She is independent. Smoking Status: Never smoker Past Alcohol Use History: Rare Past Drug Use History: None Reported - Past Family History Mother Family Medical History: AFIB, Chest Pain / Angina, Diabetes Mellitus, Hypertension Additional Family Medical History / Comment(s): Mother is 90 yrs old. Father Family Medical History: Cancer Additional Family Medical History / Comment(s): Father of lung cancer at the age of 78yrs. Medications and Allergies Home Medications Medication Instructions Recorded Confirmed Type Calcium Carbonate [Calcium] 600 mg PO DAILY #0 03/04/16 03/31/18 History Cholecalciferol [Vitamin D3] 2,000 unit PO DAILY 03/04/16 03/31/18 History Apixaban [Eliquis] 5 mg PO BID #30 tab 03/06/16 03/31/18 Rx Metoprolol Tartrate [Lopressor] 50 mg PO BID 05/16/16 03/31/18 History Furosemide [Lasix] 20 mg PO DAILY PRN 03/31/18 03/31/18 History Lisinopril [Zestril] 10 mg PO BID 03/31/18 03/31/18 History Allergies Allergy/AdvReac Type Severity Reaction Status Date / Time hydromorphone [From Dilaudid] AdvReac Hallucinati Verified 03/31/18 18:42 ons Physical Exam Vitals: Vital Signs Temp Pulse Pulse Resp BP BP Pulse Ox 04/01/18 12:00 103 H 16 04/01/18 11:28 103 H 16 149/98 93 L 04/01/18 07:44 90 16 04/01/18 07:33 90 16 137/93 92 L 04/01/18 03:25 97.3 F L 108 H 18 131/92 95 04/01/18 00:00 97.2 F L 99 18 151/84 96 03/31/18 20:00 97.1 F L 121 H 18 138/96 93 L 03/31/18 18:19 97.0 F L 132 H 18 136/87 92 L 03/31/18 17:37 97.6 F 122 H 18 134/95 97 03/31/18 16:54 112 H 118/77 03/31/18 16:44 114 H 124/81 03/31/18 16:34 112 H 105/76 03/31/18 16:24 118 H 150/72 03/31/18 16:14 100 124/81 03/31/18 16:04 120 H 16 134/73 03/31/18 15:58 133 H 106/73 03/31/18 15:34 137 H 16 149/107 98 03/31/18 14:52 155 H 03/31/18 14:51 16 Intake and Output 03/31/18 04/01/18 04/01/18 22:59 06:59 14:59 Intake Total 22.167 40.917 290 Output Total 300 1500 Balance 22.167 -259.083 -1210 Intake: Intake, IV Titration 22.167 40.917 50 Amount Diltiazem 50 mg In Sodium 22.167 40.917 50 Chloride 0.9% 40 ml @ 7. 5 MG/HR 7.5 mls/hr IV . Q6H40M [facility] Rx#:[id number] Oral 240 Output: Urine 300 1500 Other: Voiding Method Toilet Toilet # Voids 2 1 Weight 95.9 kg 96.2 kg PHYSICAL EXAMINATION: HEENT: [Head is atraumatic, normocephalic. Pupils equal, round. Neck is supple. There is no elevated jugular venous pressure.] HEART EXAMINATION: [Heart sounds irregularly irregular, S1 and S2 normal. No murmur or gallop heard.] CHEST EXAMINATION:[ Lungs reveal diminished air entry to bilateral lower lobes. No chest wall tenderness is noted on palpation or with deep breathing.] ABDOMEN: [ Soft, nontender. Bowel sounds are heard. No organomegaly noted]. EXTREMITIES:[ 2+ peripheral pulses with no evidence of peripheral edema and no calf tenderness noted]. NEUROLOGIC [patient is awake, alert and oriented x3.] . Results 03/31/18 15:17 03/31/18 15:17 Cardiac Enzymes 03/31/18 03/31/18 03/31/18 Range/Units 15:17 15:17 21:10 AST 32 (14-36) U/L CK-MB (CK-2) 0.5 0.5 (0.0-2.4) ng/mL Troponin I 0.012 0.014 (0.000-0.034) ng/mL 04/01/18 Range/Units 03:21 AST (14-36) U/L CK-MB (CK-2) 0.6 (0.0-2.4) ng/mL Troponin I <0.012 (0.000-0.034) ng/mL Coagulation 03/31/18 Range/Units 15:17 PT 11.7 (9.0-12.0) sec APTT 22.0 (22.0-30.0) sec CBC 03/31/18 Range/Units 15:17 WBC 2.2 L (3.8-10.6) k/uL RBC 4.09 (3.80-5.40) m/uL Hgb 12.7 (11.4-16.0) gm/dL Hct 40.0 (34.0-46.0) % Plt Count 74 L (150-450) k/uL Comprehensive Metabolic Panel 03/31/18 Range/Units 15:17 Sodium 142 (137-145) mmol/L Potassium 4.7 (3.5-5.1) mmol/L Chloride 107 (98-107) mmol/L Carbon Dioxide 24 (22-30) mmol/L BUN 23 H (7-17) mg/dL Creatinine 0.90 (0.52-1.04) mg/dL Glucose 112 H (74-99) mg/dL Calcium 9.0 (8.4-10.2) mg/dL AST 32 (14-36) U/L ALT 27 (9-52) U/L Alkaline Phosphatase 86 (38-126) U/L Total Protein 6.6 (6.3-8.2) g/dL Albumin 3.8 (3.5-5.0) g/dL Current Medications Generic Name Dose Route Start Last Admin Trade Name Freq PRN Reason Stop Dose Admin Acetaminophen 650 mg 03/31/18 22:32 Tylenol Tab PO Q6HR PRN Mild Pain or Fever > 100.5 Calcium Carbonate 1 each 04/01/18 09:00 04/01/18 07:48 Oscal 500+D PO 1 each DAILY ERIN Administration Calcium Carbonate/Glycine 1,000 mg 03/31/18 22:32 Tums PO Q6HR PRN Dyspepsia Cholecalciferol 2,000 unit 04/01/18 09:00 04/01/18 07:48 Vitamin D3 PO 2,000 unit DAILY ERIN Administration Digoxin 250 mcg 04/01/18 12:00 04/01/18 11:32 Lanoxin IVP 04/01/18 18:01 250 mcg Q6HR ERIN Administration Digoxin 125 mcg 04/02/18 09:00 Lanoxin PO DAILY ERIN Furosemide 40 mg 04/01/18 06:00 04/01/18 07:47 Lasix IV 40 mg Q8HR ERIN Administration Diltiazem HCl 50 mg/ Sodium 50 mls @ 7.5 mls/hr 03/31/18 15:00 04/01/18 11:32 Chloride IV 7.5 mg/hr .Q6H40M ERIN 7.5 mls/hr Administration 7.5 MG/HR Sodium Chloride 1,000 mls @ 20 mls/hr 03/31/18 16:45 03/31/18 17:36 Saline 0.9% IV 20 mls/hr .Q24H ERIN Administration Lisinopril 10 mg 03/31/18 21:15 04/01/18 07:48 Zestril PO 10 mg BID ERIN Administration Lorazepam 0.5 mg 03/31/18 22:32 Ativan PO Q6HR PRN Anxiety Magnesium Oxide 400 mg 03/31/18 21:00 04/01/18 07:48 Mag-Ox PO 400 mg BID ERIN Administration Melatonin 3 mg 03/31/18 22:32 Melatonin PO HS PRN Insomnia Metoprolol Tartrate 50 mg 04/01/18 16:00 Lopressor PO TID ERIN Naloxone HCl 0.2 mg 03/31/18 16:34 Narcan IV Q2M PRN Opioid Reversal Nystatin 1 applic 04/01/18 13:45 Mycostatin Powder TOPICAL BID [facility] Ondansetron HCl 4 mg 03/31/18 22:32 Zofran IVP Q8HR PRN Nausea And Vomiting Intake and Output 03/31/18 04/01/18 04/01/18 22:59 06:59 14:59 Intake Total 22.167 40.917 290 Output Total 300 1500 Balance 22.167 -259.083 -1210 Intake: Intake, IV Titration 22.167 40.917 50 Amount Diltiazem 50 mg In Sodium 22.167 40.917 50 Chloride 0.9% 40 ml @ 7. 5 MG/HR 7.5 mls/hr IV . Q6H40M [facility] Rx#:[id number] Oral 240 Output: Urine 300 1500 Other: Voiding Method Toilet Toilet # Voids 2 1 Weight 95.9 kg 96.2 kg 03/31/18 15:17 03/31/18 15:17 EKG Interpretations (text) Atrial fibrillation with rapid ventricular response Assessment and Plan Assessment: #1 paroxysmal atrial fibrillation with rapid ventricular response, currently anticoagulated on Eliquis #2 mildly impaired LV systolic function with an ejection fraction between 45-50% #3 metastatic ovarian cancer #4 bilateral pleural effusions right greater than left #5 hypertension #6 hyperlipidemia Plan: From cardiology perspective, we will increase metoprolol to 50 mg by mouth 3 times a day, we will start the patient on digoxin and discontinue Cardizem drip. We recommend consulting interventional radiology or pulmonary for possible thoracentesis. We will hold anticoagulants for 48 hours in anticipation for possible thoracentesis to be done on Friday, April 03. We will continue to follow the patient provide further recommendations accordingly. TODDLER TEACHER note has been reviewed, I agree with a documented findings and plan of care. Patient was seen and examined.
[2018-04-01] MEDS: NYSTATIN 100,000 UNIT/GM POWD 15 GM TOPICAL SCH ×2 (15:36→21:26)
[2018-04-01] MEDS: SODIUM CHLORIDE 0.9% 1,000 ML IV SCH (17:20)
--- NOTE | 2018-04-01 19:35 | PN ---
PROGRESS NOTE DATE OF SERVICE: 04/01/2018 PRESENTING COMPLAINT: Short of breath. INTERVAL HISTORY: This is a patient with ovarian cancer getting chemotherapy who presented with atrial flutter with rapid ventricular rate, was on an IV Cardizem drip until earlier today and then discontinued. The patient is making good urine. Eliquis was discontinued. Patient's breathing is a bit better, sitting up on a chair. REVIEW OF SYSTEMS: Done for constitutional, cardiovascular, GI, pulmonary; relevant findings as above. CURRENT MEDICATIONS: Reviewed. They include digoxin being started today. IV Cardizem was discontinued this afternoon. Lasix 40 mg IV q.8, Lopressor 50 mg 3 times a day, new dose. PHYSICAL EXAMINATION: Temperature 97.6, pulse 106, respiration 14, blood pressure 144/98, pulse ox 91% on room air. GENERAL APPEARANCE: Sitting up on a chair, awake. EYES: Pupils equal. Conjunctivae normal. HEENT: External appearance of nose and ears normal. Oral cavity normal. NECK: JVD unable to assess. Mass not palpable. RESPIRATORY: Effort normal. LUNGS: Fair air entry. CARDIOVASCULAR: Heart sounds irregular. Some edema. ABDOMEN: Distended, soft. Liver and spleen not palpable. PSYCHIATRY: Alert and oriented x3. Mood and affect normal. INVESTIGATIONS: Telemetry shows heart rate just above 100. ASSESSMENT: 1. Persistent atrial flutter/fibrillation with a rapid ventricular rate, still somewhat uncontrolled. 2. Acute congestive heart failure exacerbation, possibly precipitated by atrial fibrillation, slow to respond. 3. Essential hypertension. 4. Hyperlipidemia. 5. Obesity; body mass index 37.5. 6. Breast cancer, getting chemotherapy. 7. Pancytopenia secondary to chemotherapy. PLAN: Continue patient on IV Lasix. Lopressor was increased to 50 mg 3 times a day. Digoxin was started. Discussed with Dr. Ulices Pearson. Eliquis has been held. Possible thoracentesis. Patient requests Dr. Penny. Two-D echo pending. MMODL / IJN: [id number] /
[2018-04-02] MEDS: DILTIAZEM 50 MG in SODIUM CHLORIDE 0.9% 40 ML IV SCH ×2 (00:35→07:06)
[2018-04-02 06:51] LABS: Anisocytosis Slight; MCH 31.5 pg (25.0-35.0); MCHC 32.3 g/dL (31.0-37.0); MCV 97.3 fL (80.0-100.0); Macrocytosis Slight; Mean Platelet Volume 7.7; RDW 17.6 % (11.5-15.5)
[2018-04-02 06:55] LABS: Platelet Count 78 k/uL (150-450); WBC 1.8 k/uL (3.8-10.6)
[2018-04-02 07:04] LABS: Calcium 8.7 mg/dL (8.4-10.2); Magnesium 1.2 mg/dL (1.6-2.3); Potassium 3.4 mmol/L (3.5-5.1)
[2018-04-02 07:13] LABS: Band Neutrophils % 1 %; Lymphocytes # (M) 0.68 k/uL (1.0-4.8); Monocytes # (M) 0.23 k/uL (0-1.0); Neutrophils % (M) 48 %; Nucleated Red Blood Cells 0 /100 WBC (0-0); Total Cells Counted 100
[2018-04-02] MEDS ORDERED: Potassium Replacement Protocol 1 EACH MISC MISCELLANE PRN (07:33)
[2018-04-02] MEDS ORDERED: Magnesium Replacement Protocol 1 EACH MISC MISCELLANE PRN (07:33)
[2018-04-02] MEDS: NYSTATIN 100,000 UNIT/GM POWD 15 GM TOPICAL SCH ×2 (08:12→20:06)
[2018-04-02] MEDS: FUROSEMIDE 10 MG/ML 4 ML VIAL IV SCH ×3 (08:13→23:21)
[2018-04-02] MEDS: MAGNESIUM SULFATE-D5W PMX 1 GM in DEXTROSE/WATER 1 100ML.BAG IVPB SCH ×3 (08:18→12:19)
[2018-04-02] MEDS: POTASSIUM CHLORIDE ER 20 MEQ TAB.ER PO SCH ×3 (08:19→12:19)
[2018-04-02] MEDS: CALCIUM CARB-VIT D 500MG-200UN 1 EACH TAB PO SCH (08:20)
[2018-04-02] MEDS: CHOLECALCIFEROL 1,000 UNIT TAB PO SCH (08:20)
[2018-04-02] MEDS: DIGOXIN 125 MCG TAB PO SCH (08:21)
[2018-04-02] MEDS: MAGNESIUM OXIDE 400 MG TAB PO SCH ×2 (08:21→20:06)
[2018-04-02] MEDS: LISINOPRIL 10 MG TAB PO SCH ×2 (08:21→20:06)
[2018-04-02] MEDS: METOPROLOL TARTRATE 50 MG TAB PO SCH ×3 (08:22→21:12)
[2018-04-02] MEDS: FILGRASTIM-SNDZ 480 MCG/0.8 ML SYRINGE SQ SCH (11:03)
--- NOTE | 2018-04-02 12:14 | XR ---
EXAMINATION TYPE: XR chest 1V DATE OF EXAM: 04/02/2018 COMPARISON: 03/31/2018 HISTORY: 72-year-old female status post thoracentesis TECHNIQUE: Single frontal view of the chest is obtained. FINDINGS: Interval decrease in size of the of the patient's right-sided pleural effusion. Small bila teral pleural effusions remain. No appreciable pneumothorax. Some additional patchy right basilar den sity. Heart mildly enlarged. IMPRESSION: 1. Residual small right pleural effusion with adjacent atelectasis and/or consolidation after thorace ntesis. No appreciable pneumothorax. 2. Similar small left effusion.
--- NOTE | 2018-04-02 12:31 | P.CNPUL ---
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 The patient was initially given a combination of carboplatinum and Taxol and she completed 6 cycles of systemic chemotherapy to which she responded and the CA-125 level had dropped. Subsequently, her CA-125 level has been gradually on the rise. Most recent level on 03/04/2018 was up to the ground and 13. The patient was started on a combination of carboplatinum and Doxil. CAT scan of the chest abdomen and pelvis that was done on 01/23/2018 showed a small right-sided pleural effusion development. The patient came into the hospital having worsening shortness of breath and exertional dyspnea. Note that she has completed the course of 2 cycles of systemic chemotherapy with carboplatinum and Doxil. She has no fever or chills. She was slightly tachycardic. She has history of atrial fibrillation and she is on long-term anticoagulation with Eliquis. She had no chest pain. Her white cell count was slightly depressed and the patient was given Neulasta on outpatient basis. Chest x-ray revealed a moderate-sized right -sided pleural effusion and for that reason a pulmonary consultation was requested. The plan is to proceed with a diagnostic and therapeutic thoracentesis of the right sided pleural effusion. Echo showed an ejection fraction of 45-50% with severely dilated LA and no other valvular abnormalities. Review of Systems Constitutional: Reports fatigue, Reports weakness Eyes: denies blurred vision, denies bulging eye, denies decreased vision Ears: deny: decreased hearing, ear discharge, earache, tinnitus Ears, nose, mouth and throat: Denies headache, Denies sore throat Cardiovascular: Reports dyspnea on exertion, Reports shortness of breath Respiratory: Reports dyspnea Gastrointestinal: Denies abdominal pain, Denies diarrhea, Denies nausea, Denies vomiting Genitourinary: Denies dysuria, Denies hematuria Menstruation: Reports as per HPI Musculoskeletal: Reports as per HPI Musculoskeletal: absent: ankle pain, ankle stiffness, ankle swelling Integumentary: Denies pruritus, Denies rash Neurological: Denies numbness, Denies weakness Psychiatric: Reports as per HPI Endocrine: Reports as per HPI, Reports fatigue Hematologic/Lymphatic: Reports as per HPI Allergic/Immunologic: Reports as per HPI Past Medical History Past Medical History: Atrial Fibrillation, Cancer, Hyperlipidemia, Hypertension , Pulmonary Embolus (PE) Additional Past Medical History / Comment(s): Ovarian Cancer History of Any Multi-Drug Resistant Organisms: None Reported Past Surgical History: Appendectomy, Cholecystectomy, Hysterectomy, Tonsillectomy, Tubal Ligation Additional Past Surgical History / Comment(s): colonoscopies, 2x cervical polypectomy, couple of D&Cs, debulking, Past Anesthesia/Blood Transfusion Reactions: No Reported Reaction Past Psychological History: No Psychological Hx Reported Additional Psychological History / Comment(s): Pt resides with her spouse. She is independent. Smoking Status: Never smoker Past Alcohol Use History: Rare Past Drug Use History: None Reported - Past Family History Mother Family Medical History: AFIB, Chest Pain / Angina, Diabetes Mellitus, Hypertension Additional Family Medical History / Comment(s): Mother is 90 yrs old. Father Family Medical History: Cancer Additional Family Medical History / Comment(s): Father of lung cancer at the age of 78yrs. Medications and Allergies Home Medications Medication Instructions Recorded Confirmed Type Calcium Carbonate [Calcium] 600 mg PO DAILY #0 03/04/16 03/31/18 History Cholecalciferol [Vitamin D3] 2,000 unit PO DAILY 03/04/16 03/31/18 History Apixaban [Eliquis] 5 mg PO BID #30 tab 03/06/16 03/31/18 Rx Metoprolol Tartrate [Lopressor] 50 mg PO BID 05/16/16 03/31/18 History Furosemide [Lasix] 20 mg PO DAILY PRN 03/31/18 03/31/18 History Lisinopril [Zestril] 10 mg PO BID 03/31/18 03/31/18 History Allergies Allergy/AdvReac Type Severity Reaction Status Date / Time hydromorphone [From Dilaudid] AdvReac Hallucinati Verified 03/31/18 18:42 ons Physical Exam Vitals: Vital Signs Temp Pulse Pulse Resp BP BP Pulse Ox 04/02/18 11:56 119 H 18 04/02/18 08:48 119 H 18 04/02/18 08:44 98.5 F 66 18 148/68 93 L 09/06/18 04:00 97.1 F L 82 82 17 128/68 93 L 04/01/18 23:15 97.0 F L 91 117 H 18 148/96 98 04/01/18 21:00 91 18 04/01/18 20:00 97.1 F L 108 H 18 139/90 97 04/01/18 15:54 106 H 14 04/01/18 15:26 97.6 F 106 H 14 144/98 91 L Intake and Output 04/01/18 04/02/18 04/02/18 22:59 06:59 14:59 Intake Total 300 288.875 Output Total 500 850 Balance -200 -850 288.875 Intake: IV 10 Invasive Line 1 10 Intake, IV Titration 50 48.875 Amount Diltiazem 50 mg In Sodium 50 48.875 Chloride 0.9% 40 ml @ 7. 5 MG/HR 7.5 mls/hr IV . Q6H40M [facility] Rx#:[id number] Oral 240 240 Output: Urine 500 850 Other: Voiding Method Toilet Toilet Weight 93.3 kg General appearance: alert, in no apparent distress Head exam: NC/NT Eye exam: normal appearance, PERRL ENT exam: normal oropharynx, Oral thrush mild base of posterior tongue Neck exam: Supple, Trachea Midline Respiratory exam: No increased respiratory effort normal lung sounds bilaterally , there is diminished breath on the right lung base along with dullness to percussion consistent with a right-sided pleural effusion. Cardiovascular Exam: tachycardia, irregular rhythm GI/Abdominal exam: soft. Absent: tenderness Extremities exam: pedal edema (+1 bilaterally). Absent: calf tenderness Neurological exam: non-focal alert Psychiatric exam: normal affect, normal mood Skin exam: yeast like rash under skin folds abdomen and breast, normal color Results - Laboratory Findings CBC and BMP: 04/02/18 06:12 04/02/18 06:12 PT/INR, D-dimer PT 11.7 sec (9.0-12.0) 03/31/18 15:17 INR 1.2 (<1.2) H 03/31/18 15:17 Abnormal lab findings: Abnormal Labs 03/31/18 03/31/18 03/31/18 15:17 15:17 15:17 WBC 2.2 L RDW 18.0 H Plt Count 74 L Neutrophils # 1.0 L Neutrophils # (Manual) Lymphocytes # 0.9 L Lymphocytes # (Manual) INR 1.2 H Potassium Carbon Dioxide BUN 23 H Glucose 112 H Magnesium 1.2 L 04/02/18 04/02/18 06:12 06:12 WBC 1.8 L RDW 17.6 H Plt Count 78 L Neutrophils # Neutrophils # (Manual) 0.80 L Lymphocytes # Lymphocytes # (Manual) 0.68 L INR Potassium 3.4 L Carbon Dioxide 34 H BUN 18 H Glucose 101 H Magnesium 1.2 L - Diagnostic Findings Chest x-ray: image reviewed Assessment and Plan Plan: Assessment 1 right-sided pleural effusion, possibly malignant, will need a diagnostic and therapeutic thoracentesis 2 metastatic ovarian cancer post-systemic chemotherapy and the patient completed 2 cycles of Doxil and carboplatin and 3 neutropenia borderline 4 chronic atrial fibrillation with RVR at the time of admission and the rate is under better control and the patient is currently off Eliquis awaiting thoracentesis. Echo of the heart was noted and the patient is an ejection fraction of 40-45% 5 thrombocytopenia/leukopenia, chemotherapy-induced 6 previous history of pulmonary embolism maintained on long-term and to coagulation with Eliquis 7 hypertension 8 hyperlipidemia Plan Keep the Eliquis on hold and this can be restarted after the diagnostic thoracentesis will be done today and the fluid will be sent for analysis. Anticipate malignant effusion.
--- NOTE | 2018-04-02 12:49 | P.PN ---
Subjective Progress Note Date: 04/02/18 Principal diagnosis: Pleural Effusion, Neutropenia, Metastatic Ovarian cancer Objective - Vital Signs Vital signs: Vital Signs Temp 98.5 F 04/02/18 08:44 Pulse 119 H 04/02/18 11:56 Resp 18 04/02/18 11:56 BP 148/68 04/02/18 08:44 Pulse Ox 93 L 04/02/18 08:44 Intake & Output 04/01/18 04/02/18 04/02/18 18:59 06:59 18:59 Intake Total 580 10 288.875 Output Total 1500 1350 Balance -920 -1340 288.875 Weight 93.3 kg Intake: IV 10 Invasive Line 1 10 Intake, IV Titration 100 48.875 Amount Diltiazem 50 mg In Sodium 100 48.875 Chloride 0.9% 40 ml @ 7. 5 MG/HR 7.5 mls/hr IV . Q6H40M [facility] Rx#:[id number] Oral 480 240 Output: Urine 1500 1350 Other: Voiding Method Toilet # Voids 1 - Exam General appearance: alert, in no apparent distress Head exam: NC/NT Eye exam: normal appearance, PERRL ENT exam: normal oropharynx, Oral thrush mild base of posterior tongue Neck exam: Supple, Trachea Midline Respiratory exam: No increased respiratory effort normal lung sounds bilaterally , diminished Right>Left Cardiovascular Exam: tachycardia, irregular rhythm GI/Abdominal exam: soft. Absent: tenderness Extremities exam: pedal edema (+1 bilaterally). Absent: calf tenderness Neurological exam: non-focal alert Psychiatric exam: normal affect, normal mood Skin exam: yeast like rash under skin folds abdomen and breast, normal color - Labs CBC & Chem 7: 04/02/18 06:12 04/02/18 06:12 Labs: Abnormal Lab Results - Last 24 Hours (Table) 04/02/18 04/02/18 Range/Units 06:12 06:12 WBC 1.8 L (3.8-10.6) k/uL RDW 17.6 H (11.5-15.5) % Plt Count 78 L (150-450) k/uL Neutrophils # (Manual) 0.80 L (1.3-7.7) k/uL Lymphocytes # (Manual) 0.68 L (1.0-4.8) k/uL Potassium 3.4 L (3.5-5.1) mmol/L Carbon Dioxide 34 H (22-30) mmol/L BUN 18 H (7-17) mg/dL Glucose 101 H (74-99) mg/dL Magnesium 1.2 L (1.6-2.3) mg/dL Assessment and Plan Plan: Assessment and Recommendations 1. Metastatic Ovarian Cancer: - Status Post Cycle 2 of Doxil and Carboplatin, did not receive neulasta - Cycle 3 is scheduled on 04/07/18 2. Atrial Fibrillation with RVR: - On Eliquis 5mg po BID - Cardiology is Following, will defer need to repeat echocardiogram given patient is on antracycline to Cardiology - Cardizem Drip per Cardiology 3. Skin rash - [place] Appearance under abdominal skin fold and bilateral Breasts - Nystatin Powder ordered 4. Thrombocytopenia - No intervention needed at this time - Monitor CBC - Secondary to recent chemotherapy 5. Leukopenia - Now with Neutropenia Secondary to chemotherapy - Should be in the recovery phase after chemotherapy, continue to monitor. - ANC is less than 1, therefore Zarxio has been added - Monitor for Fevers, S/S infection - currently afebrile 6. Pleural Effusion Right Sided - Status Post Thoracentesis: - Pulm following - Await Cytology on fluid Oncology Plan - FOllow-up in Office for CBC and W[employer]LL[employer] SPECIALIST VIsit on Friday (if discharged by then) for clearance for chemotherapy on Friday. Chemo will need to be delayed if blood counts do not recover
--- NOTE | 2018-04-02 13:03 | PCN ---
PROCEDURE NOTE THORACENTESES: This was done without ultrasound markings. INDICATION: Right-sided pleural effusion. A time-out was completed verifying correct patient, procedure, site, positioning , and implant (s) or special equipment if applicable. PREOPERATIVE DIAGNOSIS: Right side pleural effusion. POSTOPERATIVE DIAGNOSIS: Right side pleural effusion. Ultrasound guidance was not used and appropriate fluid pocket was identified and marked. Patient was positioned, prepped and draped in usual sterile fashion. Lidocaine was used to anesthetize the area. A Thoracentesis catheter was introduced into the right-sided pleural space and fluid was removed. Blood loss was none. A chest x-ray was ordered to evaluate the 450 mL. Color of Fluid: Turbid, dark yellowish pleural effusion. No bedside complication or bleeding. Chest x-ray is to follow. MMODL / IJN: [id number] /
--- NOTE | 2018-04-02 14:13 | P.PN ---
Subjective Progress Note Date: 04/02/18 This is a pleasant 72-year-old female patient who follows with Dr. Pearson in the office. She has a history of paroxysmal atrial fibrillation, on Eliquis for anticoagulation, hyperlipidemia, hypertension, and metastatic ovarian cancer. Was sent to the emergency department by Dr. Gibson after noting the patient was tachycardic. She does complain of occasional palpitations as well as some worsening shortness of breath over the last 2 weeks. Upon presentation, patient was found to be in atrial fibrillation with rapid ventricular response. She was initiated on a Cardizem drip and her home metoprolol dose of 50 mg by mouth twice a day was resumed. Chest x-ray showed increasing pleural effusions , marked on the right and mild to moderate on the left as well as associated bilateral passive atelectasis pattern. She's been started on Lasix 40 mg IV push every 8 hours. Laboratory values were reviewed and showed a BUN of 23, creatinine 0.9, magnesium 1.2 which was replaced and is now 1.8, NT proBNP of 6070 and troponins negative 3. TSH, T4 and T3 are all within normal limits. Upon examination, patient is sitting up at the side of the bed. She is feeling fairly well. Continues to complain of shortness of breath with activity. She denies current complaints of palpitations, dizziness or lightheadedness. She's had no chest discomfort. She does have mild lower extremity edema that seems to be normal for her. She did have a recent echocardiogram prior to starting current chemotherapy treatment which revealed mild global hypokinesis of the LV with mildly impaired LV systolic function, ejection fraction between 45-50%. Patient underwent right sided thoracentesis today by Dr. Pink with 450 ML of turbid, dark yellowish fluid. She continues beyond Cardizem drip and digoxin and her heart rate is better controlled today. Objective - Vital Signs Vital signs: Vital Signs Temp 97.9 F 04/02/18 12:40 Pulse 75 04/02/18 12:40 Resp 18 04/02/18 12:40 BP 112/67 04/02/18 12:40 Pulse Ox 96 04/02/18 12:40 Intake & Output 04/01/18 04/02/18 04/02/18 18:59 06:59 18:59 Intake Total 580 10 288.875 Output Total 1500 1350 500 Balance -920 -1340 -211.125 Weight 93.3 kg Intake: IV 10 Invasive Line 1 10 Intake, IV Titration 100 48.875 Amount Diltiazem 50 mg In Sodium 100 48.875 Chloride 0.9% 40 ml @ 7. 5 MG/HR 7.5 mls/hr IV . Q6H40M [facility] Rx#:[id number] Oral 480 240 Output: Urine 1500 1350 500 Other: Voiding Method Toilet # Voids 1 1 - Exam PHYSICAL EXAMINATION: HEENT: [Head is atraumatic, normocephalic. Pupils equal, round. Neck is supple. There is no elevated jugular venous pressure.] HEART EXAMINATION: [Heart sounds irregularly irregular, S1 and S2 normal. No murmur or gallop heard.] CHEST EXAMINATION:[ Lungs reveal diminished air entry to bilateral lower lobes. No chest wall tenderness is noted on palpation or with deep breathing.] ABDOMEN: [ Soft, nontender. Bowel sounds are heard. No organomegaly noted]. EXTREMITIES:[ 2+ peripheral pulses with no evidence of peripheral edema and no calf tenderness noted]. NEUROLOGIC [patient is awake, alert and oriented x3.] - Labs CBC & Chem 7: 04/02/18 06:12 04/02/18 06:12 Labs: Abnormal Lab Results - Last 24 Hours (Table) 04/02/18 04/02/18 Range/Units 06:12 06:12 WBC 1.8 L (3.8-10.6) k/uL RDW 17.6 H (11.5-15.5) % Plt Count 78 L (150-450) k/uL Neutrophils # (Manual) 0.80 L (1.3-7.7) k/uL Lymphocytes # (Manual) 0.68 L (1.0-4.8) k/uL Potassium 3.4 L (3.5-5.1) mmol/L Carbon Dioxide 34 H (22-30) mmol/L BUN 18 H (7-17) mg/dL Glucose 101 H (74-99) mg/dL Magnesium 1.2 L (1.6-2.3) mg/dL Assessment and Plan Assessment: #1 paroxysmal atrial fibrillation with rapid ventricular response, currently anticoagulated on Eliquis #2 mildly impaired LV systolic function with an ejection fraction between 45-50% #3 metastatic ovarian cancer #4 bilateral pleural effusions right greater than left #5 hypertension #6 hyperlipidemia Plan: From cardiology perspective, we will discontinue IV Cardizem drip. We will resume anticoagulation. We will add verapamil 40 mg by mouth 3 times a day. We will obtain a 2-D echo with Doppler tomorrow to reassess LV systolic function. We will continue to follow the patient provide further recommendations accordingly. CUSTODY OFFICER note has been reviewed, I agree with a documented findings and plan of care. Patient was seen and examined.
[2018-04-02] MEDS: VERAPAMIL 40 MG TAB PO SCH ×2 (16:10→21:13)
[2018-04-02 17:38] LABS: Appearance,BF Hazy; Color,BF Yellow; Nucleated Cells, Body Fluid 810 /uL; RBC, Body Fluid 255 /uL
[2018-04-02] MEDS: SODIUM CHLORIDE 0.9% 1,000 ML IV SCH (18:11)
[2018-04-02 19:36] LABS: Mononuclear WBC,Body Fluid 95 %; Polynuclear WBC,Body Fluid 5 %; Total Cells Counted,Body Fluid 100
[2018-04-02] MEDS: APIXABAN 5 MG TAB PO SCH (20:06)
--- NOTE | 2018-04-02 23:27 | PN ---
PROGRESS NOTE DATE OF SERVICE: 04/02/2018 PRESENT COMPLAINT: Short of breath. INTERVAL HISTORY: This patient has ovarian cancer on chemotherapy, presented with atrial flutter with rapid ventricular rate. Today, 450 mL of thoracentesis was carried out. Cardizem drip was discontinued and verapamil was added. Breathing somewhat better. Heart rate was still running a bit on the higher side. Did tolerate a meal. REVIEW OF SYSTEMS: Done for constitutional, cardiovascular, GI, pulmonary; relevant findings as above. CURRENT MEDICATIONS: Reviewed that include: 1. Digoxin. 2. Lasix 40 mg IV q.8. 3. Lopressor 50 mg t.i.d. 4. Verapamil 40 mg p.o. t.i.d. was added today. EXAMINATION: Temperature 96.9, pulse 84, respirations 18, blood pressure 130/64, pulse ox 93% on room air. GENERAL APPEARANCE: Sitting up in a chair, comfortable. EYES: Pupils equal. Conjunctivae normal. HEENT: External nose and ears normal. Oral cavity normal. NECK: JVD unable to assess. Mass not palpable. RESPIRATORY: Effort normal. LUNGS: Decreased breath sounds at bases. CARDIOVASCULAR: Heart sounds irregular. Some edema is present. ABDOMEN: Distended, soft. Liver and spleen not palpable. PSYCHIATRY: Alert and oriented x3. Mood and affect were normal. INVESTIGATIONS: White count 1.8, hemoglobin 12, platelets 78. Potassium 3.4, CA-125 antigen 262. ASSESSMENT: 1. Persistent atrial flutter/fibrillation with rapid ventricular rate, still somewhat uncontrolled this morning. 2. Acute congestive heart failure exacerbation, probably precipitated by atrial fibrillation, pending 2D echocardiogram. 3. Essential hypertension. 4. Hyperlipidemia. 5. Obesity; BMI 37.5. 6. Breast cancer, getting chemotherapy. 7. Pancytopenia secondary to chemotherapy. 8. Pleural effusion secondary to congestive heart failure, status post paracentesis 450 mL. PLAN: Care was discussed with the patient. Questions were answered. Verapamil has been added today. Eliquis can be resumed tonight. Cardizem drip was discontinued. MMODL / IJN: [id number] /
[2018-04-03 04:17] LABS: Cholesterol,Body Fluid 80 mg/dL
[2018-04-03 06:40] LABS: Calcium 8.9 mg/dL (8.4-10.2); Magnesium 1.7 mg/dL (1.6-2.3); Potassium 3.5 mmol/L (3.5-5.1)
[2018-04-03 06:43] LABS: Anisocytosis Slight; Basophils % (A) 0 %; Eosinophils % (A) 0 %; HCT 37.1 % (34.0-46.0); HGB 12.1 gm/dL (11.4-16.0); Lymphocytes # (A) 0.7 k/uL (1.0-4.8); Lymphocytes % (A) 13 %; MCH 31.8 pg (25.0-35.0); MCHC 32.6 g/dL (31.0-37.0); MCV 97.7 fL (80.0-100.0); Macrocytosis Slight; Mean Platelet Volume 7.7; Monocytes # (A) 0.3 k/uL (0-1.0); Monocytes % (A) 5 %; Neutrophils # (A) 4.6 k/uL (1.3-7.7); Neutrophils % (A) 80 %; RDW 17.1 % (11.5-15.5); WBC 5.8 k/uL (3.8-10.6)
[2018-04-03 07:25] LABS: Platelet Count 88 k/uL (150-450)
[2018-04-03] MEDS: FUROSEMIDE 10 MG/ML 4 ML VIAL IV SCH ×2 (08:18→16:32)
[2018-04-03] MEDS: DIGOXIN 125 MCG TAB PO SCH (08:22)
[2018-04-03] MEDS: APIXABAN 5 MG TAB PO SCH (08:22)
[2018-04-03] MEDS: CALCIUM CARB-VIT D 500MG-200UN 1 EACH TAB PO SCH (08:22)
[2018-04-03] MEDS: CHOLECALCIFEROL 1,000 UNIT TAB PO SCH (08:22)
[2018-04-03] MEDS: VERAPAMIL 40 MG TAB PO SCH ×2 (08:23→16:11)
[2018-04-03] MEDS: MAGNESIUM OXIDE 400 MG TAB PO SCH (08:23)
[2018-04-03] MEDS: METOPROLOL TARTRATE 50 MG TAB PO SCH ×2 (08:23→16:11)
[2018-04-03] MEDS: NYSTATIN 100,000 UNIT/GM POWD 15 GM TOPICAL SCH (08:30)
[2018-04-03] MEDS: FILGRASTIM-SNDZ 480 MCG/0.8 ML SYRINGE SQ SCH (09:08)
[2018-04-03] MEDS: POTASSIUM CHLORIDE ER 20 MEQ TAB.ER PO SCH ×2 (10:08→11:27)
[2018-04-03] MEDS: LISINOPRIL 10 MG TAB PO SCH (11:27)
--- NOTE | 2018-04-03 11:57 | ECHOF ---
Referral Reason:reassess LVF MEASUREMENTS -------- HEIGHT: 162.6 cm WEIGHT: 93.0 kg BP: 124/66 FINDINGS -------- Atrial fibrillation. Limited Study reassess LVF: complete echo 02/03/18. Overall left ventricular systolic function is low-normal with, an EF between 50 - 55 %. Septal wall motion is delayed, and consistent with conduction delay/bundle branch block. There is no pericardial effusion. CONCLUSIONS -------- 1. Limited Study reassess LVF: complete echo 02/03/18. 2. Overall left ventricular systolic function is low-normal with, an EF between 50 - 55 %. 3. Septal wall motion is delayed, and consistent with conduction delay/bundle branch block. 4. There is no pericardial effusion. POMOLOGIST: Martha Estrada RDCS
[2018-04-03 14:55] VITALS: BP 124/77; PULSE 73; RESP 16
[2018-04-03 14:56] VITALS: TEMP 96.8
--- NOTE | 2018-04-03 15:22 | PN ---
PROGRESS NOTE Mrs. Doan is in atrial fib, rate control is much better. She had an echocardiogram ejection fraction is in the range of 50% or so. She is clinically doing better. She had a thoracentesis performed yesterday on the right side. We will continue current medical regimen, increase activity and she can be discharged with rate control and anticoagulation. S1, S2 heard normally. Regular rhythm noted. Heart rate is much better controlled. Lungs reveal improved air entry, but overall still diminished breath sounds. Abdomen is soft. Lower extremities reveal diminished pulses. Central nervous system is normal. Plan is to continue current medications. Resume anticoagulation and she can be discharged. MMODL / IJN: [id number] /
--- NOTE | 2018-04-03 15:39 | P.PN ---
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 The patient was initially given a combination of carboplatinum and Taxol and she completed 6 cycles of systemic chemotherapy to which she responded and the CA-125 level had dropped. Subsequently, her CA-125 level has been gradually on the rise. Most recent level on 03/04/2018 was up to the ground and 13. The patient was started on a combination of carboplatinum and Doxil. CAT scan of the chest abdomen and pelvis that was done on 01/23/2018 showed a small right-sided pleural effusion development. The patient came into the hospital having worsening shortness of breath and exertional dyspnea. Note that she has completed the course of 2 cycles of systemic chemotherapy with carboplatinum and Doxil. She has no fever or chills. She was slightly tachycardic. She has history of atrial fibrillation and she is on long-term anticoagulation with Eliquis. She had no chest pain. Her white cell count was slightly depressed and the patient was given Neulasta on outpatient basis. Chest x-ray revealed a moderate-sized right -sided pleural effusion and for that reason a pulmonary consultation was requested. The plan is to proceed with a diagnostic and therapeutic thoracentesis of the right sided pleural effusion. Echo showed an ejection fraction of 45-50% with severely dilated LA and no other valvular abnormalities. 97 2018, the patient is less short of breath and the patient is feeling calm and comfortable and well for now. No major shortness of breath. No chest pain. Thoracentesis was done yesterday. The procedure was done without any complication total of 450 mL was aspirated from the patient's lungs. Chest x- ray shows some residual atelectatic change in the right lung base. No evidence of any pneumothorax. The patient is known to have metastatic ovarian cancer. Her age of abrasion under better control and the patient is currently on Eliquis for long-term anticoagulation. She is doing well. Discharge planning is in progress. The patient is post cycle 2 of systemic chemotherapy and the patient is on a combination of Doxil and carboplatinum. The patient can be discharged home from the pulmonary standpoint. The fluid preliminary analysis is an exudate and the fluid cytology still pending for now. Objective - Vital Signs Vital signs: Vital Signs Temp 96.8 F L 04/03/18 14:52 Pulse 73 04/03/18 14:52 Resp 16 04/03/18 14:52 BP 124/77 04/03/18 14:52 Pulse Ox 93 L 04/03/18 14:52 Intake & Output 04/02/18 04/03/18 04/03/18 18:59 06:59 18:59 Intake Total 528.875 20 245 Output Total 500 1000 Balance 28.875 -980 245 Weight 92.9 kg Intake: IV 20 Invasive Line 1 20 Intake, IV Titration 48.875 Amount Diltiazem 50 mg In Sodium 48.875 Chloride 0.9% 40 ml @ 7. 5 MG/HR 7.5 mls/hr IV . Q6H40M [facility] Rx#:[id number] Oral 480 245 Output: Urine 500 1000 Other: Voiding Method Toilet Toilet # Voids 2 1 2 # Bowel Movements 0 0 - Exam General appearance: alert, in no apparent distress Head exam: NC/NT Eye exam: normal appearance, PERRL ENT exam: normal oropharynx, Oral thrush mild base of posterior tongue Neck exam: Supple, Trachea Midline Respiratory exam: No increased respiratory effort normal lung sounds bilaterally , there is diminished breath on the right lung base yet the air entry in the right lung is improved compared to yesterday and the patient has better aeration of the right lung base. Cardiovascular Exam: tachycardia, irregular rhythm GI/Abdominal exam: soft. Absent: tenderness Extremities exam: pedal edema (+1 bilaterally). Absent: calf tenderness Neurological exam: non-focal alert Psychiatric exam: normal affect, normal mood Skin exam: yeast like rash under skin folds abdomen and breast, normal color - Labs CBC & Chem 7: 04/03/18 06:04 04/03/18 06:04 Labs: Abnormal Lab Results - Last 24 Hours (Table) 04/02/18 04/03/18 04/03/18 Range/Units 06:12 06:04 06:04 RDW 17.1 H (11.5-15.5) % Plt Count 88 L (150-450) k/uL Lymphocytes # 0.7 L (1.0-4.8) k/uL Chloride 97 L (98-107) mmol/L Carbon Dioxide 34 H (22-30) mmol/L BUN 24 H (7-17) mg/dL Creatinine 1.13 H (0.52-1.04) mg/dL Glucose 106 H (74-99) mg/dL CA 125 Antigen 262.8 H (0.0-30.1) U/mL Assessment and Plan Plan: Assessment 1 right-sided pleural effusion, post therapeutic and diagnostic right-sided thoracentesis. The pleural fluid is an exudate. The cytology still pending for now. Possibly this is a malignant pleural effusion. 2 metastatic ovarian cancer post-systemic chemotherapy and the patient completed 2 cycles of Doxil and carboplatin and 3 neutropenia borderline 4 chronic atrial fibrillation with RVR at the time of admission and the rate is under better control and the patient is currently off Eliquis awaiting thoracentesis. Echo of the heart was noted and the patient is an ejection fraction of 40-45% 5 thrombocytopenia/leukopenia, chemotherapy-induced 6 previous history of pulmonary embolism maintained on long-term and to coagulation with Eliquis 7 hypertension 8 hyperlipidemia Plan The patient can be discharged from the pulmonary standpoint as the pulmonary status is improved and the patient is breathing easier and the atrial fibrillations is under better control. Anticoagulation was restarted. Follow up on outpatient basis.
--- NOTE | 2018-04-03 17:45 | P.PN ---
Subjective Progress Note Date: 04/03/18 Principal diagnosis: Pleural Effusion, Neutropenia, Metastatic Ovarian cancer Status Post Thoracentesis, She will be going home today. She is overall feeling better. Objective - Vital Signs Vital signs: Vital Signs Temp 96.8 F L 04/03/18 14:52 Pulse 73 04/03/18 14:52 Resp 16 04/03/18 16:00 BP 124/77 04/03/18 14:52 Pulse Ox 93 L 04/03/18 14:52 Intake & Output 04/02/18 04/03/18 04/03/18 18:59 06:59 18:59 Intake Total 528.875 20 245 Output Total 500 1000 Balance 28.875 -980 245 Weight 92.9 kg Intake: IV 20 Invasive Line 1 20 Intake, IV Titration 48.875 Amount Diltiazem 50 mg In Sodium 48.875 Chloride 0.9% 40 ml @ 7. 5 MG/HR 7.5 mls/hr IV . Q6H40M [facility] Rx#:[id number] Oral 480 245 Output: Urine 500 1000 Other: Voiding Method Toilet Toilet # Voids 2 1 2 # Bowel Movements 0 0 - Exam General appearance: alert, in no apparent distress Head exam: NC/NT Eye exam: normal appearance, PERRL ENT exam: normal oropharynx, Oral thrush mild base of posterior tongue Neck exam: Supple, Trachea Midline Respiratory exam: No increased respiratory effort normal lung sounds bilaterally , diminished Right>Left Cardiovascular Exam: tachycardia, irregular rhythm GI/Abdominal exam: soft. Absent: tenderness Extremities exam: pedal edema (+1 bilaterally). Absent: calf tenderness Neurological exam: non-focal alert Psychiatric exam: normal affect, normal mood Skin exam: yeast like rash under skin folds abdomen and breast, normal color - Labs CBC & Chem 7: 04/03/18 06:04 04/03/18 15:59 Labs: Abnormal Lab Results - Last 24 Hours (Table) 04/02/18 04/03/18 04/03/18 Range/Units 06:12 06:04 06:04 RDW 17.1 H (11.5-15.5) % Plt Count 88 L (150-450) k/uL Lymphocytes # 0.7 L (1.0-4.8) k/uL Chloride 97 L (98-107) mmol/L Carbon Dioxide 34 H (22-30) mmol/L BUN 24 H (7-17) mg/dL Creatinine 1.13 H (0.52-1.04) mg/dL Glucose 106 H (74-99) mg/dL CA 125 Antigen 262.8 H (0.0-30.1) U/mL Assessment and Plan Plan: Assessment and Recommendations 1. Metastatic Ovarian Cancer: - Status Post Cycle 2 of Doxil and Carboplatin, did not receive neulasta - Cycle 3 is scheduled on 04/07/18 2. Atrial Fibrillation with RVR: Resolved - On Eliquis 5mg po BID - Cardiology is Following, will defer need to repeat echocardiogram given patient is on antracycline to Cardiology - Cardizem Drip per Cardiology 3. Skin rash - [place] Appearance under abdominal skin fold and bilateral Breasts - Nystatin Powder ordered 4. Thrombocytopenia - No intervention needed at this time - Monitor CBC - Secondary to recent chemotherapy 5. Leukopenia - Now with Neutropenia Secondary to chemotherapy - Should be in the recovery phase after chemotherapy, continue to monitor. - ANC is less than 1, therefore Zarxio has been added - Monitor for Fevers, S/S infection - currently afebrile 6. Pleural Effusion Right Sided - Status Post Thoracentesis: - Pulm following - Await Cytology on fluid Oncology Plan - FOllow-up in Office for CBC and SUCCESS COACH VIsit on Friday (if discharged by then) for clearance for chemotherapy on Friday. Chemo will need to be delayed if blood counts do not recover and will likely be held for one week or longer, deffer to Dr. Badillo after follow-up evaluation as outpatient
--- NOTE | 2018-04-06 14:46 | CDI ---
Last Revision, June 2017 Documentation Clarification Form Date: 04/06/18 From: Alena Jones Phone: Admit Date: 03/31/2018 4:34:00 PM Patient Name: Deja Doan Visit Number: [id number] Discharge Date: 04/03/18 ATTENTION: The Clinical Documentation Specialists (CDI) and [facility] Coding Staff appreciate your assistance in clarifying documentation. Please respond to the clarification below the line at the bottom and electronically sign. The CDI & [facility] Coding staff will review the response and follow-up if needed. Please note: Queries are made part of the Legal Health Record. If you have any questions, please contact the author of this message via ITS. Can Reyes MD History/Risk Factors:pleural effusion, CHF, metastatic peritoneal and mesentric from ovarian primary Clinical Indicators: acute CHF exacerbation VS/Pulse OX: T-97.4, P-112, R-16,BP-105/76 BNP: 6070 Echocardiogram Results: left ventricular systolic functon is low-normal with an EF between 50-55% Chest X Ray: Increasing pleural effusions Treatment: right thoracentesis In your professional opinion, can you please clarify the acuity and type of CHF if known? Systolic Heart Failure Diastolic Heart Failure Systolic & Diastolic Heart Failure Acute Chronic Acute on Chronic Heart Failure Unable to Determine Other, please specify Please continue to document in your progress notes and discharge summary in order to capture severity of illness and risk of mortality. Include clinical findings that support your diagnosis. Unable to Determine MTDD
--- NOTE | 2018-04-06 14:51 | CDI ---
Last Revision, June 2017 Documentation Clarification Form Date: 04/06/18 From: Alena Robert Danuta Hodge, Master Cosmetologist Hours-8:30 am & 5 pm MVazquez Admit Date: 03/31/2018 4:34:00 PM Patient Name: Deja Doan Visit Number: [id number] Discharge Date: 04/03/18 ATTENTION: The Clinical Documentation Specialists (CDI) and [facility] Coding Staff appreciate your assistance in clarifying documentation. Please respond to the clarification below the line at the bottom and electronically sign. The CDI & [facility] Coding staff will review the response and follow-up if needed. Please note: Queries are made part of the Legal Health Record. If you have any questions, please contact the author of this message via ITS. Can Reyes MD Atrial Flutter is documented in the H&P, and 04/02 PN. History/Risk factors: atrial fib, pleural effusion, CHF, met peritoneal and mesenteric from ovarian primary Clinical Indicators: EKG/telemetry: atrial fibrillation w rapid ventricular response Treatment: IV Cardizem drip In your professional opinion, in order to capture the severity of condition; can you please clarify the type of atrial flutter if known? Typical/Type I Atypical/Type II Other, please specify Unable to determine Please continue to document in your progress notes and discharge summary in order to capture severity of illness and risk of mortality. Include clinical findings that support your diagnosis. Unable to determine MTDD
== END 2018-04-03 18:07 | disposition home or self-care (01) | DRG 308 ==
LOC: EC 14:33 → 6SEL 16:34
PROVIDERS: ADMIT Hospitalist; ATTEND Hospitalist
DX: I48.2 Chronic atrial fibrillation (principal); D61.810 Antineoplastic chemotherapy induced pancytopenia; C56.9 Malignant neoplasm of unspecified ovary; R18.0 Malignant ascites; C78.6 Secondary malignant neoplasm of retroperitoneum and peritoneum; C77.2 Secondary and unspecified malignant neoplasm of intra-abdominal lymph nodes; B37.0 Candidal stomatitis; J98.11 Atelectasis; J90 Pleural effusion, not elsewhere classified; I48.92 Unspecified atrial flutter; E83.42 Hypomagnesemia; C50.919 Malignant neoplasm of unspecified site of unspecified female breast; B36.9 Superficial mycosis, unspecified; T45.1X5A Adverse effect of antineoplastic and immunosuppressive drugs, initial encounter; Z86.711 Personal history of pulmonary embolism; E78.5 Hyperlipidemia, unspecified; E66.9 Obesity, unspecified; Z68.37 Body mass index [BMI] 37.0-37.9, adult; Z79.01 Long term (current) use of anticoagulants; Z79.899 Other long term (current) drug therapy; Z90.49 Acquired absence of other specified parts of digestive tract; Z90.710 Acquired absence of both cervix and uterus; Z98.51 Tubal ligation status; Z88.5 Allergy status to narcotic agent; Z82.49 Family history of ischemic heart disease and other diseases of the circulatory system; Z83.3 Family history of diabetes mellitus; Z80.1 Family history of malignant neoplasm of trachea, bronchus and lung; I50.9 Heart failure, unspecified
CPT/HCPCS: 36415; 71045; 71046; 80048; 80053; 82465; 82550; 82553; 82945; 83615; 83735; 83880; 84132; 84157; 84439; 84443; 84481; 84484; 85025; 85610; 85730; 86304; 88108; 88305; 88341; 88342; 89050; 93308; 96365; 96366; 96368; 96375; 96376; 99291

== ENCOUNTER → 2018-06-08 | Outpatient (CLI) | payer MEDICARE ==
--- NOTE | 2018-06-08 18:49 | CT ---
EXAMINATION TYPE: CT ChestAbdPelvis w con DATE OF EXAM: 06/08/2018 INDICATION: Ovarian Cancer-follow up COMPARISON: 01/23/2018 CT DLP: 1227.6 mGycm CONTRAST: Performed with Oral Contrast and with IV Contrast, patient injected with 80 mL of Isovue 300. TECHNIQUE: Axial images at 5 mm thick sections. Reconstructed images in the coronal plane. Delayed images through the kidneys. FINDINGS: CT CHEST: Portion of the thyroid visualized is normal. There is a small right pleural effusion. Minimal pneumonitis changes within the lingula and right mid dle lobes. No enlarged mediastinal or hilar adenopathy is evident. The ascending aorta diameter at the level of the main pulmonary artery is cm. The main pulmonary art thanh diameter at the bifurcation is cm. CT ABDOMEN: Some minimal ascites is adjacent to the liver. Minimal ascites may be adjacent to the lat eral spleen. Paracolic gutters appear clear. No free fluid is within the pelvis. Subcutaneous increa sed densities along the posterior lower back. This could be ecchymosis. Liver: There is a 0.7 cm hypodensity near the superior dome right lobe liver. This was present previo usly. Spleen: Normal Pancreas: Slightly atrophic Adrenal glands: Right adrenal gland is enlarged and 2.0 cm. This is slightly greater than 1.8 cm prev ious. Left adrenal gland is very minimal thickening of the internal limb which is stable from compari son. Gallbladder: Normal Kidneys: No masses are evident. No hydronephrosis is present. No cysts are present. Delayed images were obtained through the kidneys, which remain unremarkable. Aorta: Vascular calcification is within the aorta. Inferior vena cava: Normal. CT PELVIS: Loops of bowel within the abdomen and pelvis are normal. There are loops of bowel which are incom pletely distended or lack oral contrast limiting their evaluation. Scattered diverticuli without acut e diverticulitis are present. There is postsurgical change in the distal sigmoid colon. Fecal debris is at the rectum. Appendix: Not identified Urinary bladder: Decompressed, cannot be evaluated. Genitourinary structures: Uterus is absent. Adnexal regions are clear. Osseous structures: No suspicious lytic or sclerotic lesions. No suspicious omental caking is evident. No cystlike areas are within the pelvis. IMPRESSIONS: 1. Small stable right pleural effusion. 2. Minimal ascites adjacent to the liver. 3. Stable hypodensity within the right lobe liver. 4. Stable enlarged right adrenal gland
== END | disposition home or self-care (01) ==
LOC: RADCTMAIN 08:55
PROVIDERS: ATTEND Internal Medicine Hematology & Oncology
DX: J90 Pleural effusion, not elsewhere classified (principal); R18.8 Other ascites; E27.8 Other specified disorders of adrenal gland; C56.9 Malignant neoplasm of unspecified ovary; Z88.5 Allergy status to narcotic agent
CPT/HCPCS: 82565; 84520; 71260; 74177; 36415; Q9967

== ENCOUNTER 2018-07-31 08:38 | Inpatient (IN) | payer MEDICARE ==
[2018-07-31] MEDS ORDERED: SODIUM CHLORIDE 0.9% 1,000 ML IV STA (08:59)
--- NOTE | 2018-07-31 09:08 | ED ---
General Adult HPI - General Chief complaint: Recheck/Abnormal Lab/Rx Stated complaint: SOB-Ca Pt Time Seen by Provider: 07/31/18 09:00 Source: patient, RN notes reviewed Mode of arrival: wheelchair Limitations: no limitations - History of Present Illness Initial comments: This is a 73-year-old female presents emergency Department with a past medical history significant for ovarian cancer for which she is been treated for with chemotherapy patient's last chemotherapy was on 1218. Patient comes in today because she was at Dr. Badillo's office today and the patient was hypotensive in the low 70s and anemic at 6.6 and the patient was feeling extremely weak and short of breath. Patient states the shortness of breath and weakness have been ongoing for a couple of weeks been getting progressively worse. Patient denies any black or bloody stools though she is on eliquis for A. fib. Patient also states she is on verapamil and metoprolol for her A. fib. Patient states she's had no chest pain but is short of breath and much worse with exertion. Patient denies abdominal pain patient denies any nausea or vomiting. Patient denies any syncopal episodes but she has felt lightheaded. - Related Data Home Medications Medication Instructions Recorded Confirmed Metoprolol Tartrate [Lopressor] 50 mg PO BID 05/16/16 07/31/18 Lisinopril [Zestril] 10 mg PO BID 03/31/18 07/31/18 Digoxin [Lanoxin] 125 mcg PO Q48H 07/31/18 07/31/18 Verapamil [Isoptin] 40 mg PO BID 07/31/18 07/31/18 Previous Rx's Medication Instructions Recorded Apixaban [Eliquis] 5 mg PO BID #30 tab 03/06/16 Allergies Allergy/AdvReac Type Severity Reaction Status Date / Time hydromorphone [From Dilaudid] AdvReac Hallucinati Verified 07/31/18 09:18 ons Review of Systems ROS Statement: Those systems with pertinent positive or pertinent negative responses have been documented in the HPI. ROS Other: All systems not noted in ROS Statement are negative. Past Medical History Past Medical History: Atrial Fibrillation, Cancer, Hyperlipidemia, Hypertension , Pulmonary Embolus (PE) Additional Past Medical History / Comment(s): Ovarian Cancer History of Any Multi-Drug Resistant Organisms: None Reported Past Surgical History: Appendectomy, Cholecystectomy, Hysterectomy, Tonsillectomy, Tubal Ligation Additional Past Surgical History / Comment(s): colonoscopies, 2x cervical polypectomy, couple of D&Cs, debulking, Past Anesthesia/Blood Transfusion Reactions: No Reported Reaction Past Psychological History: No Psychological Hx Reported Smoking Status: Never smoker Past Alcohol Use History: Rare Past Drug Use History: None Reported - Past Family History Mother Family Medical History: AFIB, Chest Pain / Angina, Diabetes Mellitus, Hypertension Additional Family Medical History / Comment(s): Mother is 90 yrs old. Father Family Medical History: Cancer Additional Family Medical History / Comment(s): Father of lung cancer at the age of 78yrs. General Exam - General Exam Comments Initial Comments: GENERAL: Patient is well-developed and well-nourished. Patient is nontoxic and well- hydrated and is in mild distress. ENT: Neck is soft and supple. No significant lymphadenopathy is noted. Oropharynx is clear. Moist mucous membranes. Neck has full range of motion without eliciting any pain. EYES: The sclera were anicteric and conjunctiva were pink and moist. Extraocular movements were intact and pupils were equal round and reactive to light. Eyelids were unremarkable. PULMONARY: Unlabored respirations. Good breath sounds bilaterally. No audible rales rhonchi or wheezing was noted. CARDIOVASCULAR: Patient is bradycardic at about 50 beats a minute ABDOMEN: Soft and nontender with normal bowel sounds. No palpable organomegaly was noted. There is no palpable pulsatile mass. SKIN: Patient's skin is pale NEUROLOGIC: Patient is alert and oriented x3. Cranial nerves II through XII are grossly intact. Motor and sensory are also intact. Normal speech, volume and content. Symmetrical smile. MUSCULOSKELETAL: Normal extremities with adequate strength and full range of motion. No lower extremity swelling or edema. No calf tenderness. LYMPHATICS: No significant lymphadenopathy is noted PSYCHIATRIC: Normal psychiatric evaluation. Limitations: no limitations Course Vital Signs 07/31/18 08:48 Temperature 98.0 F Pulse Rate 42 L Respiratory 16 Rate Blood Pressure 74/46 O2 Sat by Pulse 98 Oximetry Medical Decision Making - Medical Decision Making EKG shows atrial fibrillation at a slow rate of 47 beats a minute QRS is 136 QT interval 468 QTC is 414. Patient's EKG shows ST segment depression and T-wave inversions in leads V2 through V6. I ordered 1 unit of packed red blood cells because hemoglobin on this patient was 6.5. Patient is very bradycardic. Patient also got a 1 L fluid bolus. I spoke with the hospitalist and he agreed to admit the patient admitted the patient I consulted Dr. Badillo - Lab Data Result diagrams: 07/31/18 09:43 07/31/18 09:43 Lab Results 07/31/18 07/31/18 07/31/18 Range/Units 09:43 09:43 09:43 WBC 1.3 L* (3.8-10.6) k/uL RBC 1.88 L (3.80-5.40) m/uL Hgb 6.5 L* (11.4-16.0) gm/dL Hct 19.4 L* (34.0-46.0) % MCV 103.3 H (80.0-100.0) fL MCH 34.8 (25.0-35.0) pg MCHC 33.7 (31.0-37.0) g/dL RDW 17.3 H (11.5-15.5) % Plt Count 20 L (150-450) k/uL PT 11.0 (9.0-12.0) sec INR 1.0 (<1.2) APTT 16.3 L (22.0-30.0) sec Sodium 141 (137-145) mmol/L Potassium 4.8 (3.5-5.1) mmol/L Chloride 103 (98-107) mmol/L Carbon Dioxide 32 H (22-30) mmol/L Anion Gap 6 mmol/L BUN 34 H (7-17) mg/dL Creatinine 1.33 H (0.52-1.04) mg/dL Est GFR (CKD-EPI)AfAm 46 (>60 ml/min/1.73 sqM) Est GFR (CKD-EPI)NonAf 40 (>60 ml/min/1.73 sqM) Glucose 189 H (74-99) mg/dL Calcium 8.6 (8.4-10.2) mg/dL Magnesium 1.1 L (1.6-2.3) mg/dL Total Bilirubin 1.1 (0.2-1.3) mg/dL AST 28 (14-36) U/L ALT 22 (9-52) U/L Alkaline Phosphatase 78 (38-126) U/L Total Protein 6.1 L (6.3-8.2) g/dL Albumin 3.4 L (3.5-5.0) g/dL Stool Occult Blood (Negative) 07/31/18 Range/Units 09:48 WBC (3.8-10.6) k/uL RBC (3.80-5.40) m/uL Hgb (11.4-16.0) gm/dL Hct (34.0-46.0) % MCV (80.0-100.0) fL MCH (25.0-35.0) pg MCHC (31.0-37.0) g/dL RDW (11.5-15.5) % Plt Count (150-450) k/uL PT (9.0-12.0) sec INR (<1.2) APTT (22.0-30.0) sec Sodium (137-145) mmol/L Potassium (3.5-5.1) mmol/L Chloride (98-107) mmol/L Carbon Dioxide (22-30) mmol/L Anion Gap mmol/L BUN (7-17) mg/dL Creatinine (0.52-1.04) mg/dL Est GFR (CKD-EPI)AfAm (>60 ml/min/1.73 sqM) Est GFR (CKD-EPI)NonAf (>60 ml/min/1.73 sqM) Glucose (74-99) mg/dL Calcium (8.4-10.2) mg/dL Magnesium (1.6-2.3) mg/dL Total Bilirubin (0.2-1.3) mg/dL AST (14-36) U/L ALT (9-52) U/L Alkaline Phosphatase (38-126) U/L Total Protein (6.3-8.2) g/dL Albumin (3.5-5.0) g/dL Stool Occult Blood Negative (Negative) Critical Care Time Critical Care Time: Yes Total Critical Care Time: 35 Disposition Clinical Impression: Anemia, Hypotension, Bradycardia Disposition: ADMITTED IP TO THIS HOSP Referrals: Sergey Roberts DO [Primary Care Provider] - 1-2 days Time of Disposition: 10:34
[2018-07-31 10:05] LABS: Anisocytosis Slight; MCH 34.8 pg (25.0-35.0); MCHC 33.7 g/dL (31.0-37.0); MCV 103.3 fL (80.0-100.0); Macrocytosis Moderate; Mean Platelet Volume 10.1; RBC 1.88 m/uL (3.80-5.40); RDW 17.3 % (11.5-15.5)
[2018-07-31 10:08] LABS: Albumin 3.4 g/dL (3.5-5.0); Calcium 8.6 mg/dL (8.4-10.2); Total Bilirubin 1.1 mg/dL (0.2-1.3); Total Protein 6.1 g/dL (6.3-8.2); WBC 1.3 k/uL (3.8-10.6)
[2018-07-31 10:09] LABS: HCT 19.4 % (34.0-46.0); HGB 6.5 gm/dL (11.4-16.0)
[2018-07-31 10:22] LABS: Partial Thromboplastin Time 16.3 sec (22.0-30.0)
--- NOTE | 2018-07-31 10:22 | XR ---
EXAMINATION TYPE: XR chest 2V DATE OF EXAM: 07/31/2018 COMPARISON: 04/02/2018 HISTORY: Shortness of breath TECHNIQUE: Frontal and lateral views of the chest are obtained. FINDINGS: Scattered senescent parenchymal changes noted. Hyperinflation compatible with COPD. Increased density right lung base. Chronic elevation right hemidiaphragm. Heart size is stable. Mediastinal structures are stable and grossly unremarkable. No evidence for hilar prominence. Degenerative changes dorsal spine. IMPRESSION: 1. Chronic changes right lung base.
[2018-07-31 10:24] LABS: Magnesium 1.1 mg/dL (1.6-2.3); Potassium 4.8 mmol/L (3.5-5.1)
[2018-07-31 10:33] LABS: Lymphocytes # (M) 0.51 k/uL (1.0-4.8); Monocytes # (M) 0.17 k/uL (0-1.0); Neutrophils # (M) 0.62 k/uL (1.3-7.7); Neutrophils % (M) 48 %; Nucleated Red Blood Cells 0 /100 WBC (0-0); Total Cells Counted 100
[2018-07-31 10:34] LABS: Poikilocytosis (M) Present; Polychromasia Present; Spherocytes Present
[2018-07-31 10:35] LABS: Platelet Count 20 k/uL (150-450)
[2018-07-31] MEDS ORDERED: SODIUM CHLORIDE 0.9% 1,000 ML IV ONE (10:35)
[2018-07-31 10:41] LABS: Creatine Kinase 32 U/L (30-135)
[2018-07-31 10:55] LABS: Creatine Kinase MB 0.3 ng/mL (0.0-2.4); Troponin I <0.012 ng/mL (0.000-0.034)
[2018-07-31] MEDS ORDERED: ALPRAZolam 0.25 MG TAB PO PRN (12:33)
[2018-07-31] MEDS ORDERED: ACETAMINOPHEN TAB 500 MG TAB PO PRN (12:33)
[2018-07-31] MEDS: MAGNESIUM SULFATE-D5W PMX 1 GM in DEXTROSE/WATER 1 100ML.BAG IVPB SCH ×3 (16:10→18:30)
[2018-07-31] MEDS: PANTOPRAZOLE 40 MG/10 ML VIAL IVP SCH ×2 (16:50→21:18)
--- NOTE | 2018-07-31 16:59 | HP ---
HISTORY AND PHYSICAL DATE OF SERVICE: 07/31/2018 CHIEF COMPLAINTS: Hypotension as well as anemia, weakness. HISTORY OF PRESENT ILLNESS: This 73-year-old woman with a past medical history of multiple medical problems, including atrial fibrillation, history of atrial flutter, history of hypertension, hyperlipidemia, history of pulmonary embolism, metastatic ovarian cancer, hysterectomy, debulking, is undergoing chemotherapy with Dr. Badillo. The patient is complaining of progressive weakness, shortness of breath for the last several days. Patient was in Dr. Badilol's office and found to have blood pressure systolic in the 70s. The patient was also found to have anemia, with hemoglobin 6.5. Patient was admitted for further evaluation and treatment. There is no history of any fever, rigor or chills. No history of headache, loss of consciousness, seizures. The patient has severe pancytopenia, possibly secondary to chemotherapy. PAST MEDICAL HISTORY: 1. History of atrial flutter/fibrillation. 2. History of hyperlipidemia. 3. Hypertension. 4. History of pulmonary embolus. 5. Metastatic ovarian cancer. 6. Appendectomy. 7. Cholecystectomy. HOME MEDICATIONS: 1. Isoptin 40 mg p.o. b.i.d. 2. Lopressor 50 mg p.o. b.i.d. 3. Zestril 10 mg p.o. b.i.d. 4. Lanoxin 125 mcg q.48 hours. 5. Eliquis 5 mg p.o. b.i.d. ALLERGIES: DILAUDID. FAMILY HISTORY: History of atrial ablation, chest pain, diabetes and hypertension in the family. SOCIAL HISTORY: History of occasional alcohol intake. No history of smoking. REVIEW OF SYSTEMS: ENT: No diminished hearing. No diminished vision. CARDIOVASCULAR SYSTEM: As mentioned earlier. RESPIRATORY SYSTEM: As mentioned earlier. GI: No nausea, vomiting. : No dysuria or retention. NERVOUS SYSTEM: No numbness, weakness. ALLERGY/IMMUNOLOGY: No asthma, hayfever. MUSCULOSKELETAL: As mentioned earlier. HEMATOLOGY/ONCOLOGY: As mentioned earlier. ENDOCRINE: No history of diabetes, hypothyroidism. CONSTITUTIONAL: As mentioned earlier. DERMATOLOGY: Negative. RHEUMATOLOGY: Negative. PSYCHIATRY: As mentioned earlier. PHYSICAL EXAMINATION: Patient alert and oriented x3. Pulse 74, blood pressure 138/72, respirations 16, temperature 98 degrees, pulse ox 100% on room air. HEENT: Conjunctivae pale. Oral mucosa pale. NECK: No jugular venous distention. No carotid bruit. No lymph node enlargement. CARDIOVASCULAR SYSTEM: S1, S2 muffled. No S3. No S4. Ejection systolic murmur. RESPIRATORY SYSTEM: Breath sounds diminished at the bases. A few scattered rhonchi. No crackles. ABDOMEN: Soft, non-tender. No mass palpable. LEGS: No edema. No swelling. NERVOUS SYSTEM: Higher functions as mentioned earlier. Moves all 4 limbs. No focal motor or sensory deficit. LYMPHATICS: No lymph node palpable in neck, axillae or groin. SKIN: No ulcer, rash, bleeding. LABS: WBC 1.3 and hemoglobin 6.2 and platelets 20. INR is 1. Creatinine is 1.33 and magnesium is 1.1. Albumin is 3.4. ASSESSMENT: 1. Atrial fibrillation with bradycardia. 2. Severe pancytopenia with severe symptomatic anemia with hemoglobin 6.5 secondary to chemotherapy. 3. Hypotension, possibly multifactorial or sepsis. 4. Metastatic ovarian cancer, on chemotherapy. 5. Elevated creatinine of 1.33 with acute renal failure, acute tubular necrosis, prerenal failure. 6. Hypomagnesemia. 7. Atrial flutter/fibrillation. 8. History of hypertension. 9. Hyperlipidemia. 10.History of pulmonary embolism. 11.History of appendectomy. 12.History of cholecystectomy. 13.History of motion sickness. RECOMMENDATIONS AND DISCUSSION: In this 73-year-old woman who presented with multiple complex medical issues, at this time we will monitor the patient closely, continue the current management, continue with symptomatic treatment. One unit of blood transfusion has been arranged. Also recommend empiric antibiotics. Follow the cultures. Repeat labs. Closely follow with Hematology/Oncology. We will resume the home medications once the blood pressure is stabilized. Otherwise, Cardiology and Dr. Badillo will be consulted. The EKG done in the ER showed atrial fibrillation with bradycardia. Will continue to monitor. Further recommendations to follow. Will hold the metoprolol and digoxin for now. See orders for further details. MMODL / IJN: [id number] /
[2018-07-31 18:05] LABS: Anisocytosis Slight; Basophils % (A) 0 %; Eosinophils % (A) 1 %; HCT 23.7 % (34.0-46.0); HGB 7.9 gm/dL (11.4-16.0); Lymphocytes # (A) 0.6 k/uL (1.0-4.8); Lymphocytes % (A) 49 %; MCH 34.3 pg (25.0-35.0); MCHC 33.2 g/dL (31.0-37.0); MCV 103.2 fL (80.0-100.0); Macrocytosis Moderate; Mean Platelet Volume 7.1; Monocytes # (A) 0.1 k/uL (0-1.0); Monocytes % (A) 5 %; Neutrophils # (A) 0.5 k/uL (1.3-7.7); Neutrophils % (A) 41 %; RBC 2.29 m/uL (3.80-5.40); RDW 18.2 % (11.5-15.5)
[2018-07-31 18:06] LABS: Platelet Count 15 k/uL (150-450); WBC 1.3 k/uL (3.8-10.6)
[2018-07-31] MEDS: CEFEPIME 2 GM in SODIUM CHLORIDE 0.9% 50 ML IVPB SCH ×2 (18:11→21:18)
[2018-07-31] MEDS ORDERED: METOPROLOL TARTRATE 50 MG TAB PO SCH (21:00)
[2018-07-31] MEDS: VERAPAMIL 40 MG TAB PO SCH (21:18)
[2018-07-31 22:16] LABS: Anisocytosis Slight; HCT 24.9 % (34.0-46.0); HGB 8.3 gm/dL (11.4-16.0); MCH 33.7 pg (25.0-35.0); MCHC 33.3 g/dL (31.0-37.0); MCV 101.2 fL (80.0-100.0); Macrocytosis Moderate; Mean Platelet Volume 11.1; RBC 2.46 m/uL (3.80-5.40); RDW 17.5 % (11.5-15.5); WBC 1.8 k/uL (3.8-10.6)
[2018-07-31 22:21] LABS: Platelet Count 17 k/uL (150-450)
[2018-07-31 23:03] LABS: Lymphocytes # (M) 1.15 k/uL (1.0-4.8); Monocytes # (M) 0.14 k/uL (0-1.0); Neutrophils % (M) 28 %; Nucleated Red Blood Cells 0 /100 WBC (0-0); Total Cells Counted 100
[2018-07-31 23:04] LABS: Polychromasia Present
[2018-08-01] MEDS: CEFEPIME 2 GM in SODIUM CHLORIDE 0.9% 50 ML IVPB SCH ×3 (05:01→20:37)
[2018-08-01 08:04] LABS: Calcium 8.4 mg/dL (8.4-10.2); Magnesium 1.9 mg/dL (1.6-2.3); Potassium 4.4 mmol/L (3.5-5.1)
[2018-08-01 08:05] LABS: Anisocytosis Slight; HCT 24.2 % (34.0-46.0); MCH 34.3 pg (25.0-35.0); MCHC 33.2 g/dL (31.0-37.0); MCV 103.4 fL (80.0-100.0); Macrocytosis Moderate; Mean Platelet Volume 9.9; RBC 2.34 m/uL (3.80-5.40); RDW 17.7 % (11.5-15.5)
[2018-08-01 08:15] LABS: Platelet Count 18 k/uL (150-450); WBC 1.2 k/uL (3.8-10.6)
[2018-08-01] MEDS: PANTOPRAZOLE 40 MG/10 ML VIAL IVP SCH ×2 (08:44→20:37)
[2018-08-01] MEDS: VERAPAMIL 40 MG TAB PO SCH ×2 (08:44→20:37)
[2018-08-01] MEDS ORDERED: DIGOXIN 125 MCG TAB PO SCH (09:00)
[2018-08-01 09:18] LABS: Lymphocytes # (M) 0.72 k/uL (1.0-4.8); Monocytes # (M) 0.07 k/uL (0-1.0); Neutrophils # (M) 0.41 k/uL (1.3-7.7); Neutrophils % (M) 34 %; Nucleated Red Blood Cells 2 /100 WBC (0-0); Total Cells Counted 100
[2018-08-01 09:20] LABS: Poikilocytosis (M) Present
[2018-08-01] MEDS ORDERED: APIXABAN 5 MG TAB PO SCH (21:00)
--- NOTE | 2018-08-02 00:12 | PN ---
PROGRESS NOTE DATE OF SERVICE: 08/01/2018 This 73-year-old woman was admitted hypertension, atrial fibrillation, bradycardia, severe pancytopenia. The patient had metastatic ovarian cancer on chemotherapy. The blood pressure is significantly improved at this time. The patient has symptomatic anemia. Today the hemoglobin is 8 but however white count is 1.2 and platelets 18. Cultures are negative so far. The patient being closely monitored. No chest pain. No palpitations. No fever. EXAM: Alert and oriented times three. Pulse 98, blood pressure 130/82, respiration 18, temperature 98 degrees, pulse ox 97% on room air. HEENT: Conjunctivae normal. NECK: No jugular venous distention. CARDIOVASCULAR: S1, S2 muffled. RESPIRATORY: Breath sounds diminished in the bases. A few scattered rhonchi and crackles. Abdomen is soft, nontender. Legs are no edema, no swelling. CENTRAL NERVOUS SYSTEM: No focal deficits. LABS: WBC 7.2, hemoglobin is 8, and sodium is 141, potassium 4.4. ASSESSMENT: 1. Atrial fibrillation with bradycardia, present on admission. 2. Severe pancytopenia. 3. Severe symptomatic anemia. Hemoglobin 6.5 secondary to chemotherapy, status post blood transfusion. 4. Hypotension, possible multifactorial sepsis. 5. Metastatic ovarian cancer on chemotherapy. 6. Elevated creatinine 1.33 with acute renal failure, acute tubular necrosis, prerenal renal failure. 7. Hypomagnesemia. 8. Atrial flutter fibrillation. 9. History of hypertension. 10.Hyperlipidemia. 11.History of pulmonary embolism. 12.History of appendectomy. 13.History of cholecystectomy. 14.History of motion sickness. RECOMMENDATIONS AND DISCUSSION: Recommend to continue current medications, management and symptomatic treatment. Otherwise, at this time, I recommend continue the IV fluids. Creatinine is improved. Cultures are negative. Continue the rest of the medications. Repeat labs. Closely follow with Hematology/Oncology. Guarded prognosis. Further recommendations to follow. MMODL / IJN: [id number] /
[2018-08-02] MEDS: VERAPAMIL 40 MG TAB PO SCH (06:14)
[2018-08-02] MEDS: CEFEPIME 2 GM in SODIUM CHLORIDE 0.9% 50 ML IVPB SCH ×3 (06:14→21:39)
[2018-08-02 06:54] LABS: Calcium 8.2 mg/dL (8.4-10.2); Magnesium 1.5 mg/dL (1.6-2.3); Potassium 3.9 mmol/L (3.5-5.1)
[2018-08-02 07:14] LABS: Anisocytosis Slight; HCT 20.4 % (34.0-46.0); MCV 102.9 fL (80.0-100.0); Macrocytosis Moderate; Mean Platelet Volume 8.9; Platelet Count 20 k/uL (150-450); RBC 1.98 m/uL (3.80-5.40); RDW 17.6 % (11.5-15.5)
[2018-08-02 07:19] LABS: HGB 6.7 gm/dL (11.4-16.0); WBC 1.4 k/uL (3.8-10.6)
[2018-08-02] MEDS: PANTOPRAZOLE 40 MG/10 ML VIAL IVP SCH ×2 (08:07→20:32)
--- NOTE | 2018-08-02 08:41 | P.CRDCN ---
History of Present Illness Consult date: 08/02/18 Requesting physician: Paola Dale Reason for Consult (text): Bradycardia Chief complaint: Progressive weakness and shortness of breath History of present illness: This is a pleasant 73-year-old patient who follows with Dr. Pearson in the office. She has history of paroxysmal atrial fibrillation, hyperlipidemia, hypertension, metastatic ovarian cancer, history of pulmonary embolism, currently undergoing chemotherapy with Dr. Badillo. She presented to the hospital on this occasion with symptoms of progressive weakness with associated shortness of breath over the past several days. A cardiology consultation was requested because initially on presentation she was quite bradycardic. Chest x- ray shows chronic changes in the right lung base. EKG on admission showed atrial fibrillation with a slow ventricular response, right bundle branch block pattern and T-wave abnormality. Blood pressure on arrival here 74/40 with a heart rate of 40, 98% on room air. Blood pressure this morning 140/106, heart rate 90, respirations 16, 95% on room air. White blood cell count 1.4, hemoglobin this morning 6.7, platelet count 20. Sodium 141, potassium 3.9, BUN 18, creatinine 0.7, on admission her BUN was 34 and creatinine was 1.3. Magnesium on admission 1.1, 1.5 this morning. Troponin is -0.012. Stool for occult blood is negative and digoxin level was 1.0 on admission. The patient's home medications included verapamil 40 mg twice a day, metoprolol 50 mg twice a day, Zestril 10 mg twice a day, Lanoxin 125 g every other day and Eliquis 5 mg one tablet by mouth twice a day. According to the patient, she cannot take COLETTE inhibitor's because of persistent cough. At the time of my examination this morning, patient overall feels well, she is sitting up at her bedside. Denies any shortness of breath, she does state that her appetite this morning is poor. No dizziness or lightheadedness. Apparently on walking up to the bathroom to the night last night her heart rate did jump up into the 08/27/1939 range, this morning is remaining in the 80s to 90s. Past Medical History Past Medical History: Atrial Fibrillation, Atrial Flutter, Cancer, Hyperlipidemia, Hypertension, Pulmonary Embolus (PE) Additional Past Medical History / Comment(s): Metastatic ovarian cancer with hysterectomy/debulking and chemotherapy last dose 07/14/18, pancytopenia d/t chemo, afib/flutter with RVR in past, 2 pulmonary embolisms that pt believes were on the R side, 04/10/18 pt had acute CHF with pleural effusion and R sided thoracentesis, diverticular disease. History of Any Multi-Drug Resistant Organisms: None Reported Past Surgical History: Appendectomy, Cholecystectomy, Hysterectomy, Tonsillectomy, Tubal Ligation Additional Past Surgical History / Comment(s): Debulking surgery approximately 2015, cervical polypectomies, colonoscopies. Past Anesthesia/Blood Transfusion Reactions: Motion Sickness, Postoperative Nausea & Vomiting (PONV) Additional Past Anesthesia/Blood Transfusion Reaction / Comment(s): Pt believes she recieved blood with her debulking surgery. Smoking Status: Never smoker - Past Family History Mother Family Medical History: AFIB, Chest Pain / Angina, Diabetes Mellitus, Hypertension Additional Family Medical History / Comment(s): Mother is 92 yrs old. Father Family Medical History: Cancer Additional Family Medical History / Comment(s): Father of lung cancer at the age of 78yrs. Medications and Allergies Home Medications Medication Instructions Recorded Confirmed Type Apixaban [Eliquis] 5 mg PO BID #30 tab 03/06/16 07/31/18 Rx Metoprolol Tartrate [Lopressor] 50 mg PO BID 05/16/16 07/31/18 History Lisinopril [Zestril] 10 mg PO BID 03/31/18 07/31/18 History Digoxin [Lanoxin] 125 mcg PO Q48H 07/31/18 07/31/18 History Verapamil [Isoptin] 40 mg PO BID 07/31/18 07/31/18 History Allergies Allergy/AdvReac Type Severity Reaction Status Date / Time hydromorphone [From Dilaudid] AdvReac Hallucinati Verified 07/31/18 09:18 ons Physical Exam Vitals: Vital Signs Temp Pulse Pulse Resp BP Pulse Ox 08/02/18 08:13 98.0 F 90 16 141/107 95 08/02/18 04:00 97.5 F L 100 18 122/74 94 L 08/02/18 00:00 97.9 F 78 18 125/77 95 08/01/18 20:00 97.6 F 110 H 18 139/73 98 08/01/18 16:00 98.0 F 98 18 135/82 96 08/01/18 11:51 97.9 F 74 16 120/67 94 L 08/01/18 08:48 98.0 F 111 H 16 143/72 94 L Intake and Output 08/01/18 08/02/18 08/02/18 22:59 06:59 14:59 Intake Total 200 240 Balance 200 240 Intake: Oral 200 240 Other: # Voids 4 Weight 87.4 kg PHYSICAL EXAMINATION: GENERAL: 73-year-old female in no acute distress at the time of my examination HEENT: Head is atraumatic, normocephalic. Pupils equal, round. Sclera anicteric. Conjunctiva are clear. Mucous membranes of the mouth are moist. Neck is supple. There is no elevated jugular venous pressure. No carotid bruit is heard. HEART EXAMINATION: Heart S1 and S2 irregularly irregular CHEST EXAMINATION: Lungs are clear to auscultation and precussion. No chest wall tenderness is noted on palpation or with deep breathing. ABDOMEN: Soft, nontender. Bowel sounds are heard. No organomegaly noted. EXTREMITIES: 2+ peripheral pulses with no evidence of peripheral edema and no calf tenderness noted. NEUROLOGIC patient is awake, alert and oriented 3 . . Results 08/02/18 05:50 08/02/18 05:50 CBC 08/02/18 Range/Units 05:50 WBC 1.4 L* (3.8-10.6) k/uL RBC 1.98 L (3.80-5.40) m/uL Hgb 6.7 L* (11.4-16.0) gm/dL Hct 20.4 L (34.0-46.0) % Plt Count 20 L (150-450) k/uL Comprehensive Metabolic Panel 08/02/18 Range/Units 05:50 Sodium 141 (137-145) mmol/L Potassium 3.9 (3.5-5.1) mmol/L Chloride 108 H (98-107) mmol/L Carbon Dioxide 27 (22-30) mmol/L BUN 18 H (7-17) mg/dL Creatinine 0.77 (0.52-1.04) mg/dL Glucose 94 (74-99) mg/dL Calcium 8.2 L (8.4-10.2) mg/dL Current Medications Generic Name Dose Route Start Last Admin Trade Name Freq PRN Reason Stop Dose Admin Acetaminophen 500 mg 07/31/18 12:33 Tylenol Tab PO Q6HR PRN Fever and/ or Mild Pain Alprazolam 0.25 mg 07/31/18 12:33 Xanax PO TID PRN Anxiety Cefepime HCl 2 gm/ Sodium 50 mls @ 100 mls/hr 07/31/18 14:00 08/02/18 06:14 Chloride IVPB 100 mls/hr Q8H ERIN Administration Magnesium Sulfate/Dextrose 1 100 mls @ 100 mls/hr 08/02/18 08:30 gm/ IV Solution IVPB 08/02/18 10:29 Q1H ERIN Magnesium Oxide 500 mg 08/02/18 09:00 Mag-Ox PO BID ERIN Pantoprazole Sodium 40 mg 07/31/18 12:45 08/02/18 08:07 Protonix IVP 40 mg BID ERIN Administration Verapamil HCl 40 mg 07/31/18 21:00 08/02/18 06:14 Isoptin PO 40 mg BID ERIN Administration Intake and Output 08/01/18 08/02/18 08/02/18 22:59 06:59 14:59 Intake Total 200 240 Balance 200 240 Intake: Oral 200 240 Other: # Voids 4 Weight 87.4 kg 08/02/18 05:50 08/02/18 05:50 EKG Interpretations (text) EKG shows atrial fibrillation with a slow ventricular response. Assessment and Plan Plan: Assessment and plan #1 symptoms of progressive weakness with associated shortness of breath. #2 atrial fibrillation with slow ventricular response, patient has history of paroxysmal atrial fibrillation, she was on Eliquis at home for anticoagulation #3 metastatic ovarian cancer on chemotherapy #4 severe pancytopenia with severe symptomatic anemia, hemoglobin in the 6 range #5 mild renal insufficiency on admission, creatinine normal this morning. #6 hypomagnesemia #7 hypertension history, patient hypotensive on admission #8 hyperlipidemia #9 history of PE Plan Patient did have an echocardiogram with Doppler study performed in March which revealed an ejection fraction of 45-50%. We'll repeat an echocardiogram with Doppler study. Patient has been resumed on her verapamil 40 mg twice a day , beta ana luisa and Lanoxin remain on hold. We will not resume COLETTE inhibitor as patient has side effect of cough with COLETTE inhibitor, if blood pressure elevates we will start the patient on an angio retension ana luisa. Eliquis is currently on hold because of anemia. Check TSH level. Further recommendations to follow. DNP note has been reviewed, I agree with a documented findings and plan of care. Patient was seen and examined.
--- NOTE | 2018-08-02 08:58 | CONS ---
CONSULTATION DATE OF SERVICE: August 01, 2018. REASON FOR CONSULTATION: Ovarian carcinoma and severe anemia. CHIEF COMPLAINT: Shortness of breath and fatigue. HISTORY OF PRESENT ILLNESS: Deja is a very pleasant, 73 years old lady very well known to me. She initially presented with abdominal pain and distention. She had an ultrasound in her workup. She initially presented in April of 2016 with abdominal pain and distention and was found to have ascites. She underwent paracentesis on May 24, 2016. 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 Her CT scan of the chest, abdomen and pelvis revealed evidence of ascites, omental caking and small bilateral pleural effusion. The patient underwent optimal debulking surgery on 06/18/2016 with R1 resection. Her surgery was complicated. She underwent debulking surgery by Dr. Wiley at [facility] on 06/18/2016. She had a R1 resection. Her surgery was complicated by pulmonary embolus. 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 The peritoneal washing was positive and she had peritoneal metastasis over 2 cm beyond the pelvis and positive mesenteric lymph nodes. The patient subsequently started on systemic treatment with carboplatin and Taxol. She had a total of 6 cycles completed in October of 2016. She did well until July of 2017 when she had a rising CA-[address] scan revealed evidence of disease progression of her pelvis. She started on second-line treatment with a combination of Gemzar and Avastin. She initially had a response to it which was started on September of 2017. She did not have a significant response to this combination and subsequently it was discontinued. She was started on 3rd line combination of carboplatin and Taxol and Doxil, which was started in January of 2018 and she had been slowly responding to this combination and she had partial response to this combination and she completed a total of 6 cycles 2 weeks ago. She was seen in the office yesterday. She was extremely hypotensive and severely anemic and she was referred to the hospital. She received blood transfusion and she was admitted to the hospital. She feels much but much better today after the blood transfusion. She is overall tired, but her dyspnea is better. Her fatigue is better. She denies any fever, chills, nausea, vomiting. No melena, hematochezia, hematuria, hemoptysis, hematemesis or epistaxis. PAST MEDICAL HISTORY: In addition to what is stated above in regard to her metastatic ovarian carcinoma, she has a history of atrial fibrillation, pulmonary embolus. SURGICAL HISTORY: She has debulking surgery for her ovarian carcinoma. She has a history of tonsillectomy, D and C, and tubal ligation in the past. FAMILY HISTORY: Her father had lung cancer. Her mother had colon cancer and maternal aunt had breast cancer. Of note, the patient did have genetic testing which were negative. REVIEW OF SYSTEMS: As stated above in history of present illness, otherwise negative. MEDICATION: Medications and allergies are reviewed in her electronic medical record. PHYSICAL EXAMINATION: She is alert and oriented times three. No acute distress. Vital signs: Temperature 98. Afebrile. Pulse 98, regular, respiration 18, blood pressure 135/85. HEENT: Normocephalic, atraumatic. No obvious icterus. NECK: Supple. No jugular venous distention. CHEST: Clear to auscultation bilaterally. Lungs are clear to auscultation and percussion. HEART: Regular rate and rhythm. ABDOMEN: Soft. No obvious ascites. No organomegaly or masses. Bowel sounds present. Extremities: Trace edema. Skin: Reveals a few bruises. No ecchymosis or petechiae. LYMPHATICS: No peripherally enlarged cervical or supraclavicular node. LABORATORY DATA: WBC of 1.2, hemoglobin is 8.0, hematocrit is 24.2, MCV is 103.4, platelets are 18, absolute neutrophil count is 0.4. Sodium 141, potassium is 4.4, chloride 107, CO2 is 28, BUN is 24, creatinine 0.8. IMPRESSION: 1. Metastatic ovarian carcinoma with diagnostic and therapeutic circumstances stated above. 2. Chemotherapy-induced myelosuppression with severe anemia. She also has neutropenia and significant thrombocytopenia. 3. Severe dyspnea. This is likely related to her severe anemia. Her dyspnea has improved after blood transfusion. 4. Atrial fibrillation on anticoagulation. RECOMMENDATIONS AND DISCUSSION: 1. Continue to monitor blood count. 2. The patient despite her neutropenia she is afebrile at this point in time and she is afebrile at this time. We will await final culture. I would recommend to keep Eliquis on hold for now until her thrombocytopenia improves. The above was discussed with the patient. I have answered all her questions to her satisfaction. Thank you very much for asking me participate in the care of this nice lady. MMTONY / PRABHJOTN: [id number] /
[2018-08-02 09:11] LABS: Neutrophils % (M) 33 %
[2018-08-02 09:12] LABS: Monocytes # (M) 0.14 k/uL (0-1.0); Neutrophils # (M) 0.46 k/uL (1.3-7.7); Nucleated Red Blood Cells 0 /100 WBC (0-0); Total Cells Counted 100
[2018-08-02 09:13] LABS: Poikilocytosis (M) Present
[2018-08-02] MEDS: MAGNESIUM SULFATE-D5W PMX 1 GM in DEXTROSE/WATER 1 100ML.BAG IVPB SCH ×2 (11:38→19:00)
[2018-08-02] MEDS: VERAPAMIL 80 MG TAB PO SCH ×3 (11:39→21:39)
[2018-08-02] MEDS: MAGNESIUM OXIDE 400 MG TAB PO SCH ×2 (11:39→20:32)
[2018-08-02] MEDS ORDERED: FUROSEMIDE 10 MG/ML 2 ML VIAL IV ONE (13:49)
--- NOTE | 2018-08-02 16:31 | PN ---
PROGRESS NOTE DATE OF SERVICE: August 02, 2018. CHIEF COMPLAINT: Tired. Deja is seen today as a followup. She feels tired, but overall she feels better. No fever or chills. No melena, hematochezia, hematuria, hemoptysis, or epistaxis. CURRENT MEDICATION: Reviewed in electronic record. PHYSICAL EXAM: She is alert, oriented x3. No distress. Vital signs temperature 98.0, afebrile, pulse 68 regular, respirations 16, blood pressure 132/66. HEENT: Normocephalic, atraumatic. No icterus. NECK: Supple. Chest was equal expansion bilaterally. Lungs clear to auscultation. Heart is regular rate and rhythm. ABDOMEN: Soft. No tenderness or ascites. EXTREMITIES: No edema. Skin reveals a few bruises. No ecchymosis or petechiae. LABORATORY DATA: WBC of 1.4, hemoglobin is 6.7, hematocrit 20.4, platelets are 20, absolute neutrophil count 0.4. IMPRESSION: 1. Metastatic ovarian carcinoma. The patient has just completed 3rd line of systemic treatment. 2. Chemotherapy-induced myelosuppression with severe anemia. The patient is also neutropenic and has significant thrombocytopenia. However, she has no clinical evidence to suggest infection or sepsis at this current period of time. 3. Severe dyspnea. This has improved after transfusion. 4. Atrial fibrillation requiring anticoagulation. RECOMMENDATION: 1. We will proceed with transfusion with 2 additional units of packed red blood cells today. 2. Monitor patient's blood count. 3. Keep Eliquis on hold for now. Awaiting further recovery of her platelet count. MMODL / IJN: [id number] /
[2018-08-03] MEDS: CEFEPIME 2 GM in SODIUM CHLORIDE 0.9% 50 ML IVPB SCH ×3 (06:15→21:19)
[2018-08-03 06:44] LABS: Anisocytosis Slight; HCT 26.4 % (34.0-46.0); MCH 32.7 pg (25.0-35.0); MCHC 33.9 g/dL (31.0-37.0); Macrocytosis Slight; Mean Platelet Volume 8.7; Platelet Count 24 k/uL (150-450); Poikilocytosis Slight; RBC 2.74 m/uL (3.80-5.40); RDW 19.7 % (11.5-15.5)
[2018-08-03 06:50] LABS: Anion Gap 5 mmol/L; Blood Urea Nitrogen 14 mg/dL (7-17); Calcium 8.4 mg/dL (8.4-10.2); Carbon Dioxide 29 mmol/L (22-30); Chloride 105 mmol/L (98-107); Glucose 100 mg/dL (74-99); Magnesium 1.5 mg/dL (1.6-2.3); Potassium 3.5 mmol/L (3.5-5.1); Sodium 139 mmol/L (137-145)
[2018-08-03 06:57] LABS: MCV 96.5 fL (80.0-100.0)
[2018-08-03 07:34] LABS: Band Neutrophils % 2 %; Neutrophils % (M) 37 %; Nucleated Red Blood Cells 4 /100 WBC (0-0); Total Cells Counted 200
[2018-08-03 07:36] LABS: Lymphocytes # (M) 0.67 k/uL (1.0-4.8); WBC 1.4 k/uL (3.8-10.6)
[2018-08-03] MEDS: VERAPAMIL 80 MG TAB PO SCH ×3 (08:01→21:14)
[2018-08-03] MEDS: MAGNESIUM OXIDE 400 MG TAB PO SCH ×2 (08:01→21:13)
[2018-08-03] MEDS: PANTOPRAZOLE 40 MG/10 ML VIAL IVP SCH ×2 (08:01→21:19)
--- NOTE | 2018-08-03 08:41 | PN ---
PROGRESS NOTE DATE OF SERVICE: 08/02/2018 This 73-year-old woman admitted with atrial fibrillation, bradycardia, also had severe pancytopenia. Patient with symptomatic anemia. Hemoglobin was improving initially up to 8, but currently 6.7, one unit transfusion was arranged. No chest pain or palpitation. No fever. Magnesium 1.5. PHYSICAL EXAMINATION: On exam, alert and oriented x3. Pulse 94, blood pressure 127/65, respiration 17, temperature 97.6, pulse ox 93% on room air. HEENT: Conjunctivae normal. NECK: No jugular venous distention. CARDIOVASCULAR: S1, S2 muffled. RESPIRATORY: Breath sounds diminished at the bases. A few scattered rhonchi. No crackles. Abdomen is soft, nontender. LEGS: No edema, no swelling. NERVOUS SYSTEM: No focal deficits. LABS: WBC 1.4, hemoglobin 6.7, platelets are 20. ASSESSMENT: 1. Atrial fibrillation with bradycardia, present on admission. 2. Severe pancytopenia. 3. Severe symptomatic anemia, hemoglobin 6.5, status post chemotherapy. 4. Hypotension, possibly multifactorial, sepsis. 5. Metastatic ovarian cancer on chemotherapy. 6. Elevated creatinine 1.33 with acute renal failure, acute tubular necrosis, prerenal renal failure, present on admission. 7. Hypomagnesemia. 8. Atrial flutter, fibrillation. 9. History of hypertension. 10.Hyperlipidemia. 11.History of pulmonary embolism. 12.History of appendectomy. 13.History of cholecystectomy. 14.History of motion sickness. RECOMMENDATIONS AND DISCUSSION: Recommend to continue with current medication, continue with monitoring,and symptomatic treatment. Otherwise at this time I recommend to continue with current medication. Repeat labs. Prognosis guarded because of multiple complex medical issues. Further recommendations to follow. MMODL / IJN: [id number] /
[2018-08-03] MEDS: METOPROLOL TARTRATE 25 MG TAB PO SCH ×2 (10:15→21:13)
--- NOTE | 2018-08-03 12:22 | P.PN ---
Subjective Progress Note Date: 08/03/18 This is a pleasant 73-year-old patient who follows with Dr. Pearson in the office. She has history of paroxysmal atrial fibrillation, hyperlipidemia, hypertension, metastatic ovarian cancer, history of pulmonary embolism, currently undergoing chemotherapy with Dr. Badillo. She presented to the hospital on this occasion with symptoms of progressive weakness with associated shortness of breath over the past several days. A cardiology consultation was requested because initially on presentation she was quite bradycardic. Chest x- ray shows chronic changes in the right lung base. EKG on admission showed atrial fibrillation with a slow ventricular response, right bundle branch block pattern and T-wave abnormality. Blood pressure on arrival here 74/40 with a heart rate of 40, 98% on room air. Blood pressure this morning 140/106, heart rate 90, respirations 16, 95% on room air. White blood cell count 1.4, hemoglobin this morning 6.7, platelet count 20. Sodium 141, potassium 3.9, BUN 18, creatinine 0.7, on admission her BUN was 34 and creatinine was 1.3. Magnesium on admission 1.1, 1.5 this morning. Troponin is -0.012. Stool for occult blood is negative and digoxin level was 1.0 on admission. The patient's home medications included verapamil 40 mg twice a day, metoprolol 50 mg twice a day, Zestril 10 mg twice a day, Lanoxin 125 g every other day and Eliquis 5 mg one tablet by mouth twice a day. According to the patient, she cannot take COLETTE inhibitor's because of persistent cough. At the time of my examination this morning, patient overall feels well, she is sitting up at her bedside. Denies any shortness of breath, she does state that her appetite this morning is poor. No dizziness or lightheadedness. Apparently on walking up to the bathroom to the night last night her heart rate did jump up into the 08/27/1939 range, this morning is remaining in the 80s to 90s. 08/03/2018 Patient was seen and examined this morning, she feels well, denies any dizziness or lightheadedness. Overall her heart rate has been stable in the 60s and her blood pressure in the 120 range. This morning it was documented that her pressure was 162/70 with a heart rate of 124, at the time of my examination her heart rate was 90. We will have the nurse recheck the blood pressure and heart rate. We will resume her metoprolol at a lower dose of 25 twice a day. Increase her activity today as tolerated, plan for possible discharge home soon. Objective - Vital Signs Vital signs: Vital Signs Temp 98.6 F 08/03/18 08:00 Pulse 124 H 08/03/18 08:00 Resp 18 08/03/18 08:00 BP 163/74 08/03/18 08:00 Pulse Ox 94 L 08/03/18 08:00 Intake & Output 08/02/18 08/03/18 08/03/18 18:59 06:59 18:59 Intake Total 610 800 240 Balance 610 800 240 Weight 87 kg Intake: Intake, IV Titration 100 Amount Cefepime 2 gm In Sodium 100 Chloride 0.9% 50 ml @ 100 mls/hr IVPB Q8H [facility] Rx#: [id number] Oral 300 700 240 Blood Product 310 Rc As-1 Unit 0 [id number] Rc As-1 Unit 310 [id number] Other: Voiding Method Toilet Toilet # Voids 3 1 - Exam PHYSICAL EXAMINATION: GENERAL: 73-year-old female in no acute distress at the time of my examination HEENT: Head is atraumatic, normocephalic. Pupils equal, round. Sclera anicteric. Conjunctiva are clear. Mucous membranes of the mouth are moist. Neck is supple. There is no elevated jugular venous pressure. No carotid bruit is heard. HEART EXAMINATION: Heart S1 and S2 irregularly irregular CHEST EXAMINATION: Lungs are clear to auscultation and precussion. No chest wall tenderness is noted on palpation or with deep breathing. ABDOMEN: Soft, nontender. Bowel sounds are heard. No organomegaly noted. EXTREMITIES: 2+ peripheral pulses with no evidence of peripheral edema and no calf tenderness noted. NEUROLOGIC patient is awake, alert and oriented 3 . . - Labs CBC & Chem 7: 08/03/18 06:00 08/03/18 06:00 Labs: Abnormal Lab Results - Last 24 Hours (Table) 07/31/18 08/03/18 08/03/18 Range/Units 09:43 06:00 06:00 WBC 1.4 L* (3.8-10.6) k/uL RBC 2.74 L (3.80-5.40) m/uL Hgb 9.0 L D (11.4-16.0) gm/dL Hct 26.4 L (34.0-46.0) % RDW 19.7 H (11.5-15.5) % Plt Count 24 L (150-450) k/uL Neutrophils # (Manual) 0.50 L (1.3-7.7) k/uL Lymphocytes # (Manual) 0.67 L (1.0-4.8) k/uL Nucleated RBCs 4 H (0-0) /100 WBC Glucose 100 H (74-99) mg/dL Magnesium 1.5 L (1.6-2.3) mg/dL Crossmatch See Detail Microbiology - Last 24 Hours (Table) 07/31/18 12:39 Blood Culture - Preliminary Blood No Growth after 48 hours Assessment and Plan Plan: Assessment and plan #1 symptoms of progressive weakness with associated shortness of breath. #2 atrial fibrillation with slow ventricular response, patient has history of paroxysmal atrial fibrillation, she was on Eliquis at home for anticoagulation #3 metastatic ovarian cancer on chemotherapy #4 severe pancytopenia with severe symptomatic anemia, hemoglobin in the 6 range #5 mild renal insufficiency on admission, creatinine normal this morning. #6 hypomagnesemia #7 hypertension history, patient hypotensive on admission #8 hyperlipidemia #9 history of PE Plan Condition did have a repeat echocardiogram with Doppler study which remains pending. We will review this. Add a small dose of beta ana luisa to her medication regime. 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 We will make her a follow-up appointment to see Dr. YEHUDA Pearson in the office post discharge. DNP note has been reviewed, I agree with a documented findings and plan of care. Patient was seen and examined.
--- NOTE | 2018-08-03 12:45 | CDI ---
Documentation Clarification Form Date: 08/03/2018 12:27:38 PM From: Evelia WATTS,RN,CCDS Email: [email or web address] Admit Date: 07/31/2018 10:37:00 AM Patient Name: Deja Doan Visit Number: [id number] Discharge Date: ATTENTION: The Clinical Documentation Specialists (CDI) and [facility] Coding Staff appreciate your assistance in clarifying documentation. Please respond to the clarification below the line at the bottom and electronically sign. The CDI & [facility] Coding staff will review the response and follow-up if needed. Please note: Queries are made part of the Legal Health Record. If you have any questions, please contact the author of this message via ITS. Dr. Enrrique Badillo Severe pancytopenia is noted in Documentaiton, Also documented is chemo induced myelosuppresion with severe anemia, Note of neutropenia and thrombocytopenia History/Risk factors:metastatic ovarain CA with chemo treatment she was started on 3rd line combination of carboplatin and Taxol and Doxil, which was started in January of 2018 and she had been slowly responding to this combination and she had partial response to this combination and she completed a total of 6 cycles 2 weeks ago. VS 74/46 P with bradycardia of 42 RR 16 Clinical indicators: Severe hypotension and dyspnea. SIMA 2nd to ATN Labs: WBCS 1.3 : RBC 1.88 w hgb 6.5 PLTs 20 on presentation Treatment:Transfusion, Fluids, lab monitoring, ABXS In your professional opinion, can you please render your opinion on the etiolgy of the severe pancytopenia findings signify one of the following conditions? Pancytopenia due to chemotherapy Pancytopenia due to other, please specify Other condition, please specify ____ Unable to determine (Last Revision: April 2017) MTDD
--- NOTE | 2018-08-03 13:06 | CDI ---
Documentation Clarification Form Date: 08/03/2018 12:46:25 PM From: Evelia WATTS,RN,CCDS Email: [email or web address] Admit Date: 07/31/2018 10:37:00 AM Patient Name: Deja Doan Visit Number: [id number] Discharge Date: ATTENTION: The Clinical Documentation Specialists (CDI) and [facility] Coding Staff appreciate your assistance in clarifying documentation. Please respond to the clarification below the line at the bottom and electronically sign. The CDI & [facility] Coding staff will review the response and follow-up if needed. Please note: Queries are made part of the Legal Health Record. If you have any questions, please contact the author of this message via ITS. Dr. Paola Dale Further clarification is requested regarding the documentation of severe hypotension, HP and PN state hypotension, possibly multifactorial, sepsis Patient history/risk factors: 73-year-old woman admitted with atrial fibrillation, bradycardia, also had severe pancytopenia.Patient with symptomatic anemia, hx of htn, Metastatic ovarian CA with chemotherapy current and afib as well as PE, on metropolol, lisinopril and Verapamil for HTN/AFIB Clinical Indicators: Severe hypotension noted 2nd to anemia, possible sepsis SIMA 2nd to ATN Pancytopenia, myelosuppression 2nd to chemo with severe anemia, VS 74/46 P with bradycardia of 42 RR 16 Labs: WBCS 1.3 : RBC 1.88 w hgb 6.5 PLTs 20 on presentation Treatment:IV Abxs, Fluid bolus, transfusion, medication adjustments. Lab monitoring , hold eliquis due to anemia In your professional opinion, can you please render your opinion on the clinical significance of BP 74/46? Septic Shock Cardiogenic Shock Hypovolemic Shock Hypotension unspecified Other, please specify Unable to determine (Last Revision: April 2017) Hypotension unspecified MTDD
--- NOTE | 2018-08-03 13:26 | CDI ---
Documentation Clarification Form Date: 08/03/2018 1:07:17 PM From: Evelia WATTS,RN,CCDS Email: [email or web address] Admit Date: 07/31/2018 10:37:00 AM Patient Name: Deja Doan Visit Number: [id number] Discharge Date: ATTENTION: The Clinical Documentation Specialists (CDI) and [facility] Coding Staff appreciate your assistance in clarifying documentation. Please respond to the clarification below the line at the bottom and electronically sign. The CDI & [facility] Coding staff will review the response and follow-up if needed. Please note: Queries are made part of the Legal Health Record. If you have any questions, please contact the author of this message via ITS. Dr. Paola Dale Due to multiple impressions regarding sepsis further clarification is sought HP notes severe hypotension, possibly multifactorial, sepsis. Fire Prevention Forester notes despite her neutropenia she is afebrile at this point. She has no evidence to suggest infection or sepsis at this current period of time History/Risk factors: metastatic ovarian CA with chemo treatment, severe anemia , severe pancytopenia, severe hypotension VS 74/46 P with bradycardia of 42 RR 16 Clinical indicators: Severe hypotension and dyspnea. SIMA , Pancytopenia and severe anemia Labs: WBCS 1.3 : RBC 1.88 w hgb 6.5 PLTs 20 on presentation, BC NGT, Urine culture skin sherita CR 1.33 to 0.87 next day Clinical Indicators:Current BP 163/74 HR 103 Treatment: IV fluid bolus, transfusion, BP/AFIB meds adjusted, Maxipime IVPB In your opinion, what is the most clinically appropriate diagnosis for this patient? Sepsis treated Sepsis ruled out Other explanation of clinical findings Unable to determine (no explanation for clinical findings) (Last Revision: October 2017) Sepsis ruled out MTDD
--- NOTE | 2018-08-03 13:47 | CDI ---
Documentation Clarification Form Date: 08/03/2018 From: Evelia WATTS,RN,CCDs Email: Admit Date: 07/31/2018 10:37:00 AM Patient Name: Deja Doan Visit Number: [id number] Discharge Date: ATTENTION: The Clinical Documentation Specialists (CDI) and [facility] Coding Staff appreciate your assistance in clarifying documentation. Please respond to the clarification below the line at the bottom and electronically sign. The CDI & [facility] Coding staff will review the response and follow-up if needed. Please note: Queries are made part of the Legal Health Record. If you have any questions, please contact the author of this message via ITS. Dr. Paola Dale Elevated Creatinine 1.33 with acute renal failure, acute tubular necrosis, pre renal failure is documented PN 08/01/2017 History/Risk Factors: severe hypotension, bradycardia, afib, htn, Severe pancytopenia with hgb 6.5 upon presentation, current treatment for metastatic Ovarian CA, possible sepsis Patients baseline BUN/CR/GFR: unknown Clinical Indicators: 07/31/2018 CR 1.33 to 0.87 on 08/01/2018 Presenting 07/31 CR 1.33 GFR 40 and BUN 34 Current CR 0.72 GFR 85 and BUN 14 Treatment: Transfusion, BP/AFIB med adjustments, IV fluid bolus, lab monitoring, I&Os In order to capture the severity of condition, after study, please render your opinion on the documentation of ATN ATN ruled out ATN treated Other, please specify Unable to determine (Last Revision: October 2017) ATN treated MTDD
--- NOTE | 2018-08-03 14:57 | P.PN ---
Subjective Progress Note Date: 08/03/18 Principal diagnosis: pancytopenia, dehydration, recent chemo pt seen in f/u, she is feeling better then on admit, no fever, oral irritation, appetite is fair, no nausea, she is SOB with exertion, no progressive cough or purulent sputum, abd pain, dysuria, hematuria, diarrhea, swelling, bleeding or pain. Moderate fatigue. Objective - Vital Signs Vital signs: Vital Signs Temp 98.7 F 08/03/18 12:00 Pulse 80 08/03/18 12:00 Resp 18 08/03/18 12:00 BP 120/74 08/03/18 12:00 Pulse Ox 94 L 08/03/18 12:00 Intake & Output 08/02/18 08/03/18 08/03/18 18:59 06:59 18:59 Intake Total 610 800 240 Balance 610 800 240 Weight 87 kg Intake: Intake, IV Titration 100 Amount Cefepime 2 gm In Sodium 100 Chloride 0.9% 50 ml @ 100 mls/hr IVPB Q8H [facility] Rx#: [id number] Oral 300 700 240 Blood Product 310 Rc As-1 Unit 0 [id number] Rc As-1 Unit 310 [id number] Other: Voiding Method Toilet Toilet # Voids 3 1 - Constitutional General appearance: Present: average body habitus, cooperative, no acute distress - EENT EENT Comment(s): dry mucous membranes Eyes: Present: anicteric sclerae, EOMI - Respiratory Respiratory: bilateral: CTA - Cardiovascular Heart sounds: normal: S1, S2 - Peripheral edema foot Peripheral Edema: bilateral: 1+ - Gastrointestinal General gastrointestinal: Present: normal bowel sounds, soft. Absent: absent bowel sounds, decreased bowel sounds, distended, hepatomegaly, hyperactive bowel sounds, organomegaly, rigid, scaphoid, splenomegaly, tenderness, umbilical hernia, ventral hernia - Neurologic Neurologic: Present: CNII-XII intact - Musculoskeletal Musculoskeletal: Present: generalized weakness, strength equal bilaterally - Psychiatric Psychiatric: Present: A&O x's 3, appropriate affect, intact judgment & insight - Labs CBC & Chem 7: 08/03/18 06:00 08/03/18 06:00 Labs: Abnormal Lab Results - Last 24 Hours (Table) 07/31/18 08/03/18 08/03/18 Range/Units 09:43 06:00 06:00 WBC 1.4 L* (3.8-10.6) k/uL RBC 2.74 L (3.80-5.40) m/uL Hgb 9.0 L D (11.4-16.0) gm/dL Hct 26.4 L (34.0-46.0) % RDW 19.7 H (11.5-15.5) % Plt Count 24 L (150-450) k/uL Neutrophils # (Manual) 0.50 L (1.3-7.7) k/uL Lymphocytes # (Manual) 0.67 L (1.0-4.8) k/uL Nucleated RBCs 4 H (0-0) /100 WBC Glucose 100 H (74-99) mg/dL Magnesium 1.5 L (1.6-2.3) mg/dL Crossmatch See Detail Microbiology - Last 24 Hours (Table) 07/31/18 12:39 Blood Culture - Preliminary Blood No Growth after 48 hours Assessment and Plan (1) Pancytopenia due to antineoplastic chemotherapy Narrative/Plan: Hemoglobin stable, white blood cell count stable, ANC is 500 today. Platelet count slightly increased to 24,000 today. No transfusion is needed today. Continue to hold anticoagulation due to platelet count. Current Visit: Yes Status: Acute Priority: High Code(s): D61.810 - ANTINEOPLASTIC CHEMOTHERAPY INDUCED PANCYTOPENIA; T45.1X5A - ADVERSE EFFECT OF ANTINEOPLASTIC AND IMMUNOSUP DRUGS, INIT SNOMED Code(s): 623163272326579 (2) Ovarian cancer Narrative/Plan: Patient is currently receiving treatment for the same. She would be due for chemotherapy this week. Chemotherapy will continue to be on hold until recovery. Patient will be reevaluated by primary oncologist as there may need to be some adjustments in doses or may need additional supportive care. Current Visit: Yes Status: Acute Priority: Medium Code(s): C56.9 - MALIGNANT NEOPLASM OF UNSPECIFIED OVARY SNOMED Code(s): 606879577 (3) Hypotension Narrative/Plan: Likely related to dehydration and medications. Cardiology following Current Visit: Yes Status: Acute Priority: High Code(s): I95.9 - HYPOTENSION, UNSPECIFIED SNOMED Code(s): 35545214
--- NOTE | 2018-08-04 00:37 | PN ---
PROGRESS NOTE DATE OF SERVICE: 08/03/2018. PRESENTING COMPLAINT: Tired. INTERVAL HISTORY: Patient presented to the ER from Dr. Badillo's office as patient was hypotensive with a blood pressure down to the 70s and anemic at 6.6, feeling very weak and tired. The patient was found to be in atrial fibrillation with rapid ventricular rate in the hospital. The patient was also transfused blood to get a total of 2 units. Earlier beta ana luisa was added today. There was a concern about tachy-juan a syndrome and getting into pacemaker. The patient did tolerate some diet. REVIEW OF SYSTEMS: Done for constitutional, cardiovascular, GI, pulmonary; relevant findings as above. CURRENT MEDICATIONS: Reviewed, include IV cefepime, Lopressor 25 mg b.i.d., verapamil 80 mg t.i.d. EXAMINATION: Temperature 98.2, pulse 86, respiratory rate 18, blood pressure 120/81, pulse 95 percent on room air. GENERAL APPEARANCE: Lying in bed, tired-appearing. EYES: Pupils equal. Conjunctivae pale. HEENT: External appearance of ears and nose is normal. Oral cavity normal. NECK: JVD unable to assess. Mass not palpable. Respiratory effort normal. LUNGS: Fair air entry. CARDIOVASCULAR: Heart sounds irregular. Minimal edema. ABDOMEN: Soft, minimal distention. Liver and spleen not palpable. PSYCHIATRY: Alert and oriented x3. Mood and affect normal. A bit tired-appearing. INVESTIGATIONS: White count 1.4, hemoglobin 9, platelets 24,000, potassium 3.5. BUN and creatinine normal. ASSESSMENT: 1. Persistent atrial flutter/fibrillation with rapid ventricular rate and episodes of low heart rate with the possibility of patient getting a pacemaker. 2. Chronic congestive heart failure from diastolic dysfunction. Ejection fraction 50% to 55%. 3. Essential hypertension. 4. Hyperlipidemia. 5. Obesity; BMI greater than 30. 6. Pancytopenia due to chemotherapy. 7. Metastatic ovarian cancer status post debulking surgery and chemotherapy therapy. 8. Hypomagnesemia. PLAN: Continue current medication and treatment plan. Follow with Cardiology and Oncology. Overall prognosis is guarded. MMODL / IJN: [id number] /
[2018-08-04] MEDS: CEFEPIME 2 GM in SODIUM CHLORIDE 0.9% 50 ML IVPB SCH ×2 (05:52→18:27)
[2018-08-04 06:40] LABS: Calcium 8.5 mg/dL (8.4-10.2); Magnesium 1.4 mg/dL (1.6-2.3); Potassium 3.9 mmol/L (3.5-5.1)
[2018-08-04 06:46] LABS: Anisocytosis Slight; HCT 26.8 % (34.0-46.0); HGB 9.2 gm/dL (11.4-16.0); MCH 33.3 pg (25.0-35.0); MCHC 34.5 g/dL (31.0-37.0); MCV 96.5 fL (80.0-100.0); Macrocytosis Slight; Mean Platelet Volume 9.1; RBC 2.77 m/uL (3.80-5.40); RDW 18.4 % (11.5-15.5); WBC 1.6 k/uL (3.8-10.6)
[2018-08-04 06:49] LABS: Platelet Count 23 k/uL (150-450)
[2018-08-04 07:28] LABS: Basophils # (M) 0.02 k/uL (0-0.2); Lymphocytes # (M) 0.66 k/uL (1.0-4.8); Monocytes # (M) 0.34 k/uL (0-1.0); Neutrophils # (M) 0.59 k/uL (1.3-7.7); Neutrophils % (M) 37 %; Nucleated Red Blood Cells 0 /100 WBC (0-0); Total Cells Counted 100
[2018-08-04 07:29] LABS: Polychromasia Present
[2018-08-04] MEDS: MAGNESIUM OXIDE 400 MG TAB PO SCH ×3 (08:55→19:59)
[2018-08-04] MEDS: PANTOPRAZOLE 40 MG/10 ML VIAL IVP SCH (08:55)
[2018-08-04] MEDS: METOPROLOL TARTRATE 25 MG TAB PO SCH ×2 (08:55→20:00)
[2018-08-04] MEDS: VERAPAMIL 80 MG TAB PO SCH (08:55)
[2018-08-04 11:23] VITALS: BMI 34.0
--- NOTE | 2018-08-04 14:16 | P.PN ---
Subjective Progress Note Date: 08/04/18 This is a pleasant 73-year-old patient who follows with Dr. Pearson in the office. She has history of paroxysmal atrial fibrillation, hyperlipidemia, hypertension, metastatic ovarian cancer, history of pulmonary embolism, currently undergoing chemotherapy with Dr. Badillo. She presented to the hospital on this occasion with symptoms of progressive weakness with associated shortness of breath over the past several days. A cardiology consultation was requested because initially on presentation she was quite bradycardic. Chest x- ray shows chronic changes in the right lung base. EKG on admission showed atrial fibrillation with a slow ventricular response, right bundle branch block pattern and T-wave abnormality. Blood pressure on arrival here 74/40 with a heart rate of 40, 98% on room air. Blood pressure this morning 140/106, heart rate 90, respirations 16, 95% on room air. White blood cell count 1.4, hemoglobin this morning 6.7, platelet count 20. Sodium 141, potassium 3.9, BUN 18, creatinine 0.7, on admission her BUN was 34 and creatinine was 1.3. Magnesium on admission 1.1, 1.5 this morning. Troponin is -0.012. Stool for occult blood is negative and digoxin level was 1.0 on admission. The patient's home medications included verapamil 40 mg twice a day, metoprolol 50 mg twice a day, Zestril 10 mg twice a day, Lanoxin 125 g every other day and Eliquis 5 mg one tablet by mouth twice a day. According to the patient, she cannot take COLETTE inhibitor's because of persistent cough. At the time of my examination this morning, patient overall feels well, she is sitting up at her bedside. Denies any shortness of breath, she does state that her appetite this morning is poor. No dizziness or lightheadedness. Apparently on walking up to the bathroom to the night last night her heart rate did jump up into the 08/27/1939 range, this morning is remaining in the 80s to 90s. 08/03/2018 Patient was seen and examined this morning, she feels well, denies any dizziness or lightheadedness. Overall her heart rate has been stable in the 60s and her blood pressure in the 120 range. This morning it was documented that her pressure was 162/70 with a heart rate of 124, at the time of my examination her heart rate was 90. We will have the nurse recheck the blood pressure and heart rate. We will resume her metoprolol at a lower dose of 25 twice a day. Increase her activity today as tolerated, plan for possible discharge home soon. 08/04/2018 Patient was seen and examined this morning, she was noted to have pauses of up to 3 seconds on the monitor. For this reason, we had a discussion with her today regarding implantation of a permanent pacemaker as well as its risks and its benefits. Dr. Whatley did speak with Dr. YEHUDA Pearson regarding this, Dr. Perason' s concern regarding implantation of a pacer at this time was in reference to the low platelets. The decision was made to decrease the dose of verapamil, continue to monitor the patient, discharge home and follow-up with Dr. Nydia Pearson in the office. We will also discuss with hematology regarding their expectations of improvement in platelet counts and white blood cell count and the need for pacemaker implantation. Objective - Vital Signs Vital signs: Vital Signs Temp 98.0 F 08/04/18 12:09 Pulse 60 08/04/18 12:09 Resp 20 08/04/18 12:09 BP 128/84 08/04/18 12:09 Pulse Ox 96 08/04/18 12:09 Intake & Output 08/03/18 08/04/18 08/04/18 18:59 06:59 18:59 Intake Total 290 1270 310 Balance 290 1270 310 Weight 87.1 kg 87.1 kg Intake: IV 220 normal saline 220 Intake, IV Titration 50 50 Amount Cefepime 2 gm In Sodium 50 50 Chloride 0.9% 50 ml @ 100 mls/hr IVPB Q8H [facility] Rx#: [id number] Oral 240 1000 Blood Product 310 Rc As-1 Unit 310 [id number] Other: Voiding Method Toilet Toilet Toilet # Voids 3 - Exam PHYSICAL EXAMINATION: GENERAL: 73-year-old female in no acute distress at the time of my examination HEENT: Head is atraumatic, normocephalic. Pupils equal, round. Sclera anicteric. Conjunctiva are clear. Mucous membranes of the mouth are moist. Neck is supple. There is no elevated jugular venous pressure. No carotid bruit is heard. HEART EXAMINATION: Heart S1 and S2 irregularly irregular CHEST EXAMINATION: Lungs are clear to auscultation and precussion. No chest wall tenderness is noted on palpation or with deep breathing. ABDOMEN: Soft, nontender. Bowel sounds are heard. No organomegaly noted. EXTREMITIES: 2+ peripheral pulses with no evidence of peripheral edema and no calf tenderness noted. NEUROLOGIC patient is awake, alert and oriented 3 . . - Labs CBC & Chem 7: 08/04/18 05:50 08/04/18 05:50 Labs: Abnormal Lab Results - Last 24 Hours (Table) 07/31/18 08/04/18 08/04/18 Range/Units 09:43 05:50 05:50 WBC 1.6 L (3.8-10.6) k/uL RBC 2.77 L (3.80-5.40) m/uL Hgb 9.2 L (11.4-16.0) gm/dL Hct 26.8 L (34.0-46.0) % RDW 18.4 H (11.5-15.5) % Plt Count 23 L (150-450) k/uL Neutrophils # (Manual) 0.59 L (1.3-7.7) k/uL Lymphocytes # (Manual) 0.66 L (1.0-4.8) k/uL BUN 18 H (7-17) mg/dL Magnesium 1.4 L (1.6-2.3) mg/dL Crossmatch See Detail Microbiology - Last 24 Hours (Table) 07/31/18 12:39 Blood Culture - Preliminary Blood No Growth after 72 hours Assessment and Plan Plan: Assessment and plan #1 symptoms of progressive weakness with associated shortness of breath. #2 atrial fibrillation with slow ventricular response, patient has history of paroxysmal atrial fibrillation, she was on Eliquis at home for anticoagulation #3 metastatic ovarian cancer on chemotherapy #4 severe pancytopenia with severe symptomatic anemia, hemoglobin in the 6 range #5 mild renal insufficiency on admission, creatinine normal this morning. #6 hypomagnesemia #7 hypertension history, patient hypotensive on admission #8 hyperlipidemia #9 history of PE Plan Patient was noted on the monitor to have up to 3 second pauses, evidence of tachycardia bradycardia syndrome overall. White blood cell count 1.6, hemoglobin 9.2, platelet count 23. At this time we will decrease the dose of verapamil, patient may be discharged and follow-up with Dr. Nydia Pearson in the office. We will also speak with hematology regarding their expectation of the patient's improvement in platelets and white blood cell count, and also the need for permanent pacemaker implantation. Further recommendations then will be made. DNP note has been reviewed, I agree with a documented findings and plan of care. Patient was seen and examined.
[2018-08-04] MEDS: VERAPAMIL 40 MG TAB PO SCH ×2 (17:05→19:59)
[2018-08-04] MEDS: PANTOPRAZOLE 40 MG TABLET PO SCH (17:07)
--- NOTE | 2018-08-04 17:51 | P.PN ---
Subjective Progress Note Date: 08/04/18 Principal diagnosis: pancytopenia, dehydration, recent chemo Patient seen today in follow-up. She states feeling better today than yesterday. She is actually being considered for a pacemaker. Objective - Vital Signs Vital signs: Vital Signs Temp 98.0 F 08/04/18 12:09 Pulse 60 08/04/18 12:09 Resp 20 08/04/18 12:09 BP 128/84 08/04/18 12:09 Pulse Ox 96 08/04/18 12:09 Intake & Output 08/03/18 08/04/18 08/04/18 18:59 06:59 18:59 Intake Total 290 1270 532 Output Total 600 Balance 290 1270 -68 Weight 87.1 kg 87.1 kg Intake: IV 220 normal saline 220 Intake, IV Titration 50 50 Amount Cefepime 2 gm In Sodium 50 50 Chloride 0.9% 50 ml @ 100 mls/hr IVPB Q8H [facility] Rx#: [id number] Oral 240 1000 222 Blood Product 310 Rc As-1 Unit 310 [id number] Output: Urine 600 Other: Voiding Method Toilet Toilet Toilet # Voids 3 - Constitutional General appearance: Present: cooperative, no acute distress - EENT Eyes: Present: EOMI ENT: Present: hearing grossly normal, normal oropharynx - Respiratory Respiratory: bilateral: CTA - Cardiovascular Rhythm: irregularly irregular Heart sounds: normal: S1, S2 - Peripheral edema leg Peripheral Edema: bilateral: 2+ - Gastrointestinal General gastrointestinal: Present: normal bowel sounds, soft - Integumentary Integumentary: Present: normal - Neurologic Neurologic: Present: CNII-XII intact - Musculoskeletal Musculoskeletal: Present: generalized weakness, strength equal bilaterally - Psychiatric Psychiatric: Present: A&O x's 3, appropriate affect, intact judgment & insight - Labs CBC & Chem 7: 08/04/18 05:50 08/04/18 05:50 Labs: Abnormal Lab Results - Last 24 Hours (Table) 07/31/18 08/04/18 08/04/18 Range/Units 09:43 05:50 05:50 WBC 1.6 L (3.8-10.6) k/uL RBC 2.77 L (3.80-5.40) m/uL Hgb 9.2 L (11.4-16.0) gm/dL Hct 26.8 L (34.0-46.0) % RDW 18.4 H (11.5-15.5) % Plt Count 23 L (150-450) k/uL Neutrophils # (Manual) 0.59 L (1.3-7.7) k/uL Lymphocytes # (Manual) 0.66 L (1.0-4.8) k/uL BUN 18 H (7-17) mg/dL Magnesium 1.4 L (1.6-2.3) mg/dL Crossmatch See Detail Microbiology - Last 24 Hours (Table) 07/31/18 12:39 Blood Culture - Preliminary Blood No Growth after 96 hours Assessment and Plan (1) Pancytopenia due to antineoplastic chemotherapy Narrative/Plan: From my review of the office chart it appears the patient has completed this particular course of chemotherapy. Her last treatment was on July 14. When reviewing patient's CBC her counts do recover about the third week after treatment, which is this week. CBC is noted to have stabilized, her white blood cell count is slowly beginning to increase, hemoglobin and platelets stable. If patient is requiring cardiac pacemaker intervention would anticipate patient being able to do so with in the next 7-10 days. Current Visit: Yes Status: Acute Priority: High Code(s): D61.810 - ANTINEOPLASTIC CHEMOTHERAPY INDUCED PANCYTOPENIA; T45.1X5A - ADVERSE EFFECT OF ANTINEOPLASTIC AND IMMUNOSUP DRUGS, INIT SNOMED Code(s): 736326757579834 (2) Ovarian cancer Narrative/Plan: I am double checking with Dr. Badillo regarding this particular treatment regimen being completed at this time or if there are plans for further maintenance therapy. No further plans for treatment until followed up by Dr. Badillo. Current Visit: Yes Status: Acute Priority: Medium Code(s): C56.9 - MALIGNANT NEOPLASM OF UNSPECIFIED OVARY SNOMED Code(s): 497489081 (3) Hypotension Narrative/Plan: Cardiology has seen the patient. Patient has been worked up. Did listen to cardiology explanation of patient diagnosis of tachycardia/bradycardia syndrome. Plans are for a pacemaker once patient's counts have recovered from chemotherapy. Current Visit: Yes Status: Acute Priority: High Code(s): I95.9 - HYPOTENSION, UNSPECIFIED SNOMED Code(s): 54221577
--- NOTE | 2018-08-05 03:13 | PN ---
PROGRESS NOTE DATE OF SERVICE: August 04, 2018. PRESENTING COMPLAINT: Tired. INTERVAL HISTORY: This is a patient presented with hypotension, anemia, was transfused blood. Also found to in atrial fibrillation, rapid ventricular rate. The patient did get 2 units of blood. The patient has also had sinus pauses. Dose of verapamil is being cut back. The concern about pacemaker currently is because of the low platelets. REVIEW OF SYSTEMS: Done for constitutional, cardiovascular, GI, pulmonary and relevant findings as above. CURRENT MEDICATIONS: Reviewed today include verapamil 40 mg 3 times a day. Lopressor 25 mg b.i.d., IV cefepime. PHYSICAL EXAMINATION: VITAL SIGNS: Temperature 98.2, pulse 49, respiratory 20, blood pressure 139/79, pulse ox 96 percent on room air. GENERAL APPEARANCE: Sitting on bed, awake. EYES: Pupils equal. Conjunctivae pale. NECK: JVD not raised. Mass not palpable. RESPIRATORY: Effort normal. LUNGS: Fair entry. CARDIOVASCULAR: Heart sounds irregular. Some edema. ABDOMEN: Soft, nontender. Liver and spleen not palpable. PSYCHIATRY: Alert and oriented x3. Mood and affect normal. INVESTIGATIONS: White count 1.6, hemoglobin 9.2, platelets 23, potassium 3.9. ASSESSMENT: 1. Persistent atrial flutter fibrillation, rapid ventricular rate and episodes of sinus pauses, possibly requiring a pacemaker. 2. Chronic congestive heart failure from diastolic dysfunction. Ejection fraction 50- 55 percent. 3. Essential hypertension. 4. Hyperlipidemia. 5. Obesity; BMI greater than 30. 6. Pancytopenia due to chemotherapy, expecting the counts to recover including platelets. 7. Metastatic ovarian cancer status post debulking surgery and chemotherapy. 8. Hypomagnesemia. PLAN: Care was discussed with the patient and her at length. We will see how the patient does. It may be that the patient may have to get a pacemaker as an outpatient and restrict the patient's activity. For the swelling in the lower extremity, will use some Idris wraps. MMODL / IJN: [id number] /
[2018-08-05] MEDS: PANTOPRAZOLE 40 MG TABLET PO SCH (06:30)
[2018-08-05] MEDS: CEFEPIME 2 GM in SODIUM CHLORIDE 0.9% 50 ML IVPB SCH (06:30)
[2018-08-05 06:56] LABS: Anion Gap 4 mmol/L; Blood Urea Nitrogen 17 mg/dL (7-17); Calcium 8.7 mg/dL (8.4-10.2); Carbon Dioxide 28 mmol/L (22-30); Chloride 107 mmol/L (98-107); Glucose 104 mg/dL (74-99); Magnesium 1.1 mg/dL (1.6-2.3); Potassium 3.8 mmol/L (3.5-5.1); Sodium 139 mmol/L (137-145)
[2018-08-05 07:43] LABS: Anisocytosis Slight; MCH 33.3 pg (25.0-35.0); MCHC 33.3 g/dL (31.0-37.0); MCV 100.1 fL (80.0-100.0); Macrocytosis Slight; Mean Platelet Volume 7.8; RBC 2.99 m/uL (3.80-5.40); RDW 18.2 % (11.5-15.5); WBC 2.4 k/uL (3.8-10.6)
[2018-08-05 07:44] LABS: Platelet Count 51 k/uL (150-450)
[2018-08-05 08:45] LABS: Eosinophils # (M) 0.02 k/uL (0-0.7); Lymphocytes # (M) 0.74 k/uL (1.0-4.8); Monocytes # (M) 0.48 k/uL (0-1.0); Neutrophils # (M) 1.15 k/uL (1.3-7.7); Neutrophils % (M) 48 %; Nucleated Red Blood Cells 0 /100 WBC (0-0); Polychromasia Present; Total Cells Counted 100
[2018-08-05 08:46] LABS: Poikilocytosis (M) Present
--- NOTE | 2018-08-05 08:48 | ECHOF ---
Referral Reason:LVfunction MEASUREMENTS -------- HEIGHT: 160.0 cm WEIGHT: 87.1 kg BP: RVIDd: 3.3 cm (< 3.3) IVSd: 0.9 cm (0.6 - 1.1) LVIDd: 4.3 cm (3.9 - 5.3) LVPWd: 1.2 cm (0.6 - 1.1) IVSs: 1.4 cm LVIDs: 3.3 cm LVPWs: 1.8 cm LAESV Index (A-L): 36.78 ml/m Ao Diam: 2.8 cm (2.0 - 3.7) AV Cusp: 1.9 cm (1.5 - 2.6) LA Diam: 3.9 cm (2.7 - 3.8) RAP: 5.00 mmHg RVSP: 35.30 mmHg FINDINGS -------- Atrial fibrillation. This was a technically good study. The left ventricular size is normal. There is mild concentric left ventricular hypertrophy. Overa ll left ventricular systolic function is low-normal with, an EF between 50 - 55 %. The right ventricle is normal in size and function. LA is moderately dilated 34-39 ml/m2 The right atrium is normal in size. Aortic valve is trileaflet and is mildly thickened. The mitral valve leaflets are mildly thickened. Mild mitral annular calcification present. Severe mitral regurgitation is present. Moderate tricuspid regurgitation present. The right ventricular systolic pressure, as measured by D oppler, is 35.30mmHg. Pulmonic valve appears structurally normal. The aortic root, ascending aorta and aortic arch are normal. CONCLUSIONS -------- 1. Atrial fibrillation. 2. This was a technically good study. 3. The left ventricular size is normal. 4. There is mild concentric left ventricular hypertrophy. 5. Overall left ventricular systolic function is low-normal with, an EF between 50 - 55 %. 6. The right ventricle is normal in size and function. 7. LA is moderately dilated 34-39 ml/m2 8. The right atrium is normal in size. 9. Aortic valve is trileaflet and is mildly thickened. 10. The mitral valve leaflets are mildly thickened. 11. Mild mitral annular calcification present. 12. Severe mitral regurgitation is present. 13. Moderate tricuspid regurgitation present. 14. The right ventricular systolic pressure, as measured by Doppler, is 35.30mmHg. 15. Pulmonic valve appears structurally normal. 16. The aortic root, ascending aorta and aortic arch are normal. TICKET ATTENDANT: Adriana Erickson RDCS
[2018-08-05] MEDS: METOPROLOL TARTRATE 25 MG TAB PO SCH (09:01)
[2018-08-05] MEDS: VERAPAMIL 40 MG TAB PO SCH (09:01)
[2018-08-05] MEDS: MAGNESIUM OXIDE 400 MG TAB PO SCH (09:01)
[2018-08-05 09:12] VITALS: RESP 18
[2018-08-05] MEDS: MAGNESIUM SULFATE-D5W PMX 1 GM in DEXTROSE/WATER 1 100ML.BAG IVPB SCH ×2 (11:39→13:03)
[2018-08-05 12:12] VITALS: BP 127/92; PULSE 81; TEMP 98.1
--- NOTE | 2018-08-05 13:40 | P.PN ---
Subjective Progress Note Date: 08/05/18 Principal diagnosis: pancytopenia, dehydration, recent chemo Pt seen in f/u, she is feeling rather well today, she is eating and drinking, no fevers, nausea, has not had any episodes of DEANNA, chest pain or palpitations. Legs are still mildly swollen. Objective - Vital Signs Vital signs: Vital Signs Temp 98.1 F 08/05/18 12:09 Pulse 81 08/05/18 12:09 Resp 18 08/05/18 12:09 BP 127/92 08/05/18 12:09 Pulse Ox 95 08/05/18 12:09 Intake & Output 08/04/18 08/05/18 08/05/18 18:59 06:59 18:59 Intake Total 532 Output Total 600 Balance -68 Weight 87.1 kg 87.6 kg Intake: Oral 222 Blood Product 310 Rc As-1 Unit 310 [id number] Output: Urine 600 Other: Voiding Method Toilet Toilet # Voids 1 - Constitutional General appearance: Present: average body habitus, cooperative, no acute distress - EENT Eyes: Present: anicteric sclerae, EOMI ENT: Present: hearing grossly normal - Respiratory Respiratory: bilateral: CTA - Cardiovascular Heart sounds: normal: S1, S2 - Peripheral edema leg Peripheral Edema: bilateral: Trace - Gastrointestinal General gastrointestinal: Present: normal bowel sounds, soft - Integumentary Integumentary: Present: normal turgor, pale - Neurologic Neurologic: Present: CNII-XII intact - Musculoskeletal Musculoskeletal: Present: strength equal bilaterally - Psychiatric Psychiatric: Present: A&O x's 3, appropriate affect, intact judgment & insight - Labs CBC & Chem 7: 08/05/18 05:58 08/05/18 05:58 Labs: Abnormal Lab Results - Last 24 Hours (Table) 08/05/18 08/05/18 Range/Units 05:58 05:58 WBC 2.4 L (3.8-10.6) k/uL RBC 2.99 L (3.80-5.40) m/uL Hgb 10.0 L (11.4-16.0) gm/dL Hct 30.0 L (34.0-46.0) % MCV 100.1 H (80.0-100.0) fL RDW 18.2 H (11.5-15.5) % Plt Count 51 L D (150-450) k/uL Neutrophils # (Manual) 1.15 L (1.3-7.7) k/uL Lymphocytes # (Manual) 0.74 L (1.0-4.8) k/uL Glucose 104 H (74-99) mg/dL Magnesium 1.1 L (1.6-2.3) mg/dL Microbiology - Last 24 Hours (Table) 07/31/18 12:39 Blood Culture - Preliminary Blood No Growth after 96 hours Assessment and Plan (1) Pancytopenia due to antineoplastic chemotherapy Narrative/Plan: Pt counts are increasing today as anticipated, she is 3 weeks out from chemo. Did review with Dr. Weathers. Pt counts are adequate for pacemaker insertion if Cardiology would like to do so. Current Visit: Yes Status: Acute Priority: High Code(s): D61.810 - ANTINEOPLASTIC CHEMOTHERAPY INDUCED PANCYTOPENIA; T45.1X5A - ADVERSE EFFECT OF ANTINEOPLASTIC AND IMMUNOSUP DRUGS, INIT SNOMED Code(s): 380926656267014 (2) Ovarian cancer Narrative/Plan: Dr. Badillo confirmed that pt is done with IV treatment at this time. She is due for treatment f/u imaging. We will sched this for her outpatient with a f/u with Dr. Badillo after for plans for maintenance treatment if indicated. Pt did verbalize understanding plan. Current Visit: Yes Status: Acute Priority: Medium Code(s): C56.9 - MALIGNANT NEOPLASM OF UNSPECIFIED OVARY SNOMED Code(s): 164582595 (3) Hypotension Narrative/Plan: Cardiology has evaluated, worked up and has treatment plan for pt. Current Visit: Yes Status: Acute Priority: High Code(s): I95.9 - HYPOTENSION, UNSPECIFIED SNOMED Code(s): 24231549
--- NOTE | 2018-08-05 14:44 | P.PN ---
Subjective Progress Note Date: 08/05/18 This is a pleasant 73-year-old patient who follows with Dr. Pearson in the office. She has history of paroxysmal atrial fibrillation, hyperlipidemia, hypertension, metastatic ovarian cancer, history of pulmonary embolism, currently undergoing chemotherapy with Dr. Badillo. She presented to the hospital on this occasion with symptoms of progressive weakness with associated shortness of breath over the past several days. A cardiology consultation was requested because initially on presentation she was quite bradycardic. Chest x- ray shows chronic changes in the right lung base. EKG on admission showed atrial fibrillation with a slow ventricular response, right bundle branch block pattern and T-wave abnormality. Blood pressure on arrival here 74/40 with a heart rate of 40, 98% on room air. Blood pressure this morning 140/106, heart rate 90, respirations 16, 95% on room air. White blood cell count 1.4, hemoglobin this morning 6.7, platelet count 20. Sodium 141, potassium 3.9, BUN 18, creatinine 0.7, on admission her BUN was 34 and creatinine was 1.3. Magnesium on admission 1.1, 1.5 this morning. Troponin is -0.012. Stool for occult blood is negative and digoxin level was 1.0 on admission. The patient's home medications included verapamil 40 mg twice a day, metoprolol 50 mg twice a day, Zestril 10 mg twice a day, Lanoxin 125 g every other day and Eliquis 5 mg one tablet by mouth twice a day. According to the patient, she cannot take COLETTE inhibitor's because of persistent cough. At the time of my examination this morning, patient overall feels well, she is sitting up at her bedside. Denies any shortness of breath, she does state that her appetite this morning is poor. No dizziness or lightheadedness. Apparently on walking up to the bathroom to the night last night her heart rate did jump up into the 08/27/1939 range, this morning is remaining in the 80s to 90s. 08/03/2018 Patient was seen and examined this morning, she feels well, denies any dizziness or lightheadedness. Overall her heart rate has been stable in the 60s and her blood pressure in the 120 range. This morning it was documented that her pressure was 162/70 with a heart rate of 124, at the time of my examination her heart rate was 90. We will have the nurse recheck the blood pressure and heart rate. We will resume her metoprolol at a lower dose of 25 twice a day. Increase her activity today as tolerated, plan for possible discharge home soon. 08/04/2018 Patient was seen and examined this morning, she was noted to have pauses of up to 3 seconds on the monitor. For this reason, we had a discussion with her today regarding implantation of a permanent pacemaker as well as its risks and its benefits. Dr. Whatley did speak with Dr. YEHUDA Pearson regarding this, Dr. Pearson' s concern regarding implantation of a pacer at this time was in reference to the low platelets. The decision was made to decrease the dose of verapamil, continue to monitor the patient, discharge home and follow-up with Dr. Nydia Pearson in the office. We will also discuss with hematology regarding their expectations of improvement in platelet counts and white blood cell count and the need for pacemaker implantation. 08/05/2018 Patient seen and examined this morning, yesterday the decision was made to wait a week to 10 days, if patient still required a pacemaker would be performed at that time. She had no further pauses through the night, heart rate this morning in the 90s. A cardiogram with Doppler study revealed an ejection fraction of 50-55%. Blood cell count 2.4, hemoglobin 10, platelet count 51 today. Patient feels well, denies any dizziness or lightheadedness, no palpitations, no chest discomfort. Objective - Vital Signs Vital signs: Vital Signs Temp 98.1 F 08/05/18 12:09 Pulse 81 08/05/18 12:09 Resp 18 08/05/18 12:09 BP 127/92 08/05/18 12:09 Pulse Ox 95 08/05/18 12:09 Intake & Output 08/04/18 08/05/18 08/05/18 18:59 06:59 18:59 Intake Total 532 480 Output Total 600 Balance -68 480 Weight 87.1 kg 87.6 kg Intake: Oral 222 480 Blood Product 310 Rc As-1 Unit 310 [id number] Output: Urine 600 Other: Voiding Method Toilet Toilet # Voids 1 2 - Exam PHYSICAL EXAMINATION: GENERAL: 73-year-old female in no acute distress at the time of my examination HEENT: Head is atraumatic, normocephalic. Pupils equal, round. Sclera anicteric. Conjunctiva are clear. Mucous membranes of the mouth are moist. Neck is supple. There is no elevated jugular venous pressure. No carotid bruit is heard. HEART EXAMINATION: Heart S1 and S2 irregularly irregular CHEST EXAMINATION: Lungs are clear to auscultation and precussion. No chest wall tenderness is noted on palpation or with deep breathing. ABDOMEN: Soft, nontender. Bowel sounds are heard. No organomegaly noted. EXTREMITIES: 2+ peripheral pulses with no evidence of peripheral edema and no calf tenderness noted. NEUROLOGIC patient is awake, alert and oriented 3 . . - Labs CBC & Chem 7: 08/05/18 05:58 08/05/18 05:58 Labs: Abnormal Lab Results - Last 24 Hours (Table) 08/05/18 08/05/18 Range/Units 05:58 05:58 WBC 2.4 L (3.8-10.6) k/uL RBC 2.99 L (3.80-5.40) m/uL Hgb 10.0 L (11.4-16.0) gm/dL Hct 30.0 L (34.0-46.0) % MCV 100.1 H (80.0-100.0) fL RDW 18.2 H (11.5-15.5) % Plt Count 51 L D (150-450) k/uL Neutrophils # (Manual) 1.15 L (1.3-7.7) k/uL Lymphocytes # (Manual) 0.74 L (1.0-4.8) k/uL Glucose 104 H (74-99) mg/dL Magnesium 1.1 L (1.6-2.3) mg/dL Microbiology - Last 24 Hours (Table) 07/31/18 12:39 Blood Culture - Preliminary Blood No Growth after 96 hours Assessment and Plan Plan: Assessment and plan #1 symptoms of progressive weakness with associated shortness of breath. #2 atrial fibrillation with slow ventricular response, patient has history of paroxysmal atrial fibrillation, she was on Eliquis at home for anticoagulation #3 metastatic ovarian cancer on chemotherapy #4 severe pancytopenia with severe symptomatic anemia, hemoglobin in the 6 range #5 mild renal insufficiency on admission, creatinine normal this morning. #6 hypomagnesemia #7 hypertension history, patient hypotensive on admission #8 hyperlipidemia #9 history of PE Plan From cardiology's perspective, patient may be able to be discharged home. We' ll make her a follow-up appointment later this week or next week with Dr. Nydia Pearson. Pacemaker as an outpatient. DNP note has been reviewed, I agree with a documented findings and plan of care. Patient was seen and examined.
--- NOTE | 2018-08-06 00:57 | DS ---
DISCHARGE SUMMARY DATE OF ADMISSION: 07/31/2018. DATE OF DISCHARGE: 08/05/2018. FINAL DIAGNOSES: 1. Persistent atrial flutter fibrillation with rapid ventricular rate and sinus pauses with tachy juan a syndrome. 2. Chronic congestive heart failure from diastolic dysfunction. Ejection fraction 50% to 55%. 3. Essential hypertension. 4. Hyperlipidemia. 5. Obesity; BMI greater than 50. 6. Severe pancytopenia due to chemotherapy. 7. Metastatic ovarian cancer status post debulking surgery and chemotherapy. 8. Hypomagnesemia. 9. Hypotension from volume loss. 10.No evidence of sepsis. HOSPITAL COURSE: This patient was getting chemotherapy. Presented weak, tired, run down. Was found to be hypotensive. Was given fluids. Initially felt to be sepsis, but actually no evidence of sepsis. The patient was in acute renal failure causing hypotension. The creatinine did come down nicely. The patient has persistent atrial flutter fibrillation. Medications were adjusted, but the patient started having sinus pauses. The patient required a pacemaker, but because of low platelet count, Cardiology decided to defer this for right now until platelet count is more comfortable. Today did speak to Ángela from Hematology. From their standpoint, the patient can for procedure. Also spoke to Jillian Villalobos from Cardiology. The patient will be seen by Dr. Ulices Pearson in outpatient and he will schedule pacemaker. I discussed this with the patient. Questions were answered. Total time is spent in discussion and discharge planning more than 35 minutes. PHYSICAL EXAMINATION: Temperature 98.1, pulse 81, respiratory rate 18, blood pressure 127/92, pulse ox 95% on room air. LUNGS: Fair air entry. CARDIOVASCULAR: Heart sounds irregular. Some edema present. INVESTIGATIONS: White count 2.4, hemoglobin 10, platelets 51, BUN , creatinine 0.75. The patient's creatinine on admission was 1.33. DISCHARGE MEDICATIONS: 1. Magnesium oxide 250 mg 3 times a day. 2. Lopressor 25 mg b.i.d. 3. Isoptin 40 mg t.i.d. 4. Discontinued medications include Eliquis, Zestril and digoxin. FOLLOWUP: 1. Follow up with Dr. Ulices Pearson on 08/14/2018. 2. Follow up with Dr. Roberts on 08/11/2018. 3. Follow up with Dr. Badillo on 08/17/2018. OTHER INSTRUCTIONS: CBC next week. MMODL / IJN: [id number] /
== END 2018-08-05 17:00 | disposition home or self-care (01) | DRG 808 ==
LOC: EC 08:38 → 3SCARD 10:37
PROVIDERS: ADMIT Hospitalist; ATTEND Hospitalist
DX: D61.810 Antineoplastic chemotherapy induced pancytopenia (principal); N17.0 Acute kidney failure with tubular necrosis; C56.9 Malignant neoplasm of unspecified ovary; C78.6 Secondary malignant neoplasm of retroperitoneum and peritoneum; I48.92 Unspecified atrial flutter; I50.32 Chronic diastolic (congestive) heart failure; R18.8 Other ascites; Z68.43 Body mass index [BMI] 50.0-59.9, adult; C77.2 Secondary and unspecified malignant neoplasm of intra-abdominal lymph nodes; E66.9 Obesity, unspecified; E78.5 Hyperlipidemia, unspecified; E83.42 Hypomagnesemia; E86.0 Dehydration; I11.0 Hypertensive heart disease with heart failure; Z86.711 Personal history of pulmonary embolism; I45.10 Unspecified right bundle-branch block; I48.0 Paroxysmal atrial fibrillation; I49.5 Sick sinus syndrome; T45.1X5A Adverse effect of antineoplastic and immunosuppressive drugs, initial encounter; Z79.01 Long term (current) use of anticoagulants; Z79.899 Other long term (current) drug therapy; Z80.0 Family history of malignant neoplasm of digestive organs; Z80.1 Family history of malignant neoplasm of trachea, bronchus and lung; Z80.3 Family history of malignant neoplasm of breast; Z82.49 Family history of ischemic heart disease and other diseases of the circulatory system; Z83.3 Family history of diabetes mellitus; Z85.43 Personal history of malignant neoplasm of ovary; Z90.49 Acquired absence of other specified parts of digestive tract; Z90.710 Acquired absence of both cervix and uterus; Z53.09 Procedure and treatment not carried out because of other contraindication; K57.90 Diverticulosis of intestine, part unspecified, without perforation or abscess without bleeding; Z86.010 Personal history of colon polyps; T75.3XXA Motion sickness, initial encounter; I95.9 Hypotension, unspecified; Z88.5 Allergy status to narcotic agent
CPT/HCPCS: 36415; 71046; 80048; 80053; 80162; 82272; 82550; 82553; 83735; 84484; 85025; 85610; 85730; 86850; 86900; 86901; 86920; 87040; 87086; 93005; 93306; 96360; 99291

== ENCOUNTER → 2018-08-12 | Outpatient (CLI) | payer MEDICARE ==
--- NOTE | 2018-08-12 12:04 | CT ---
EXAMINATION TYPE: CT ChestAbdPelvis w con DATE OF EXAM: 08/12/2018 COMPARISON: CT chest abdomen pelvis June 08, 2013 and older studies. HISTORY: Ovarian cancer just completed chemotherapy July 14. CT DLP: 1164.4 mGycm. Automated Exposure Control for Dose Reduction was Utilized. CONTRAST: CT scan of the thorax, abdomen and pelvis is performed with IV Contrast, patient injected with 100 mL of Isovue 300. FINDINGS: LUNGS: There is stable small right pleural effusion. No new suspicious nodules or masses are identifi ed. There is persistent linear scarring and/or atelectasis anteriorly in the left midlung and anterio rly in the right midlung perhaps posttreatment change near axial image 29. Some peripheral groundglas s opacity in the anterolateral left mid lung near axial image 26 is unchanged from most recent CT. No left-sided effusion is seen. Tracheobronchial tree is patent. Elevated right hemidiaphragm is redemo nstrated. MEDIASTINUM: There are no greater than 1 cm hilar or mediastinal lymph nodes. No pericardial effusi on is seen. Cardiomegaly is redemonstrated OTHER: No additional significant abnormality is seen. LIVER/GB: Subcentimeter lesion posterior right hepatic dome axial image 42 is not significantly walden ed from prior CTs. Gallbladder is surgically absent. Stable trace ascites anterolateral aspect of emelia er axial image 47 PANCREAS: No significant abnormality is seen. SPLEEN: No significant abnormality is seen. ADRENALS: Nonspecific Right adrenal mass measures 2.3 x 1.8 cm current study axial image 54 not signi ficantly changed from prior studies. KIDNEYS: No significant abnormality is seen. BOWEL: Surgical sutures from prior bowel surgery with real anastomosis distal sigmoid colon of pelvis axial image 102 are redemonstrated. GENITAL ORGANS: Uterus is surgically absent. Right-sided pelvic phleboliths are present. LYMPH NODES: No greater than 1cm abdominal or pelvic lymph nodes are appreciated. Prominent but subce ntimeter left external iliac chain lymph node axial image 98 is not as well seen on most recent prior but not significantly changed from January 23, 2018 prior study axial image 98. OSSEOUS STRUCTURES: There is moderate multilevel spurring in the spine. There is facet arthropathy in the mid to lower lumbar spine. OTHER: No new ascites is evident. There is stable 9 x 8 mm mid abdominal irregular mesenteric lesion axial image 74 and coronal image 27 not significant change from recent CT axial image 73. IMPRESSION: No progression in the abdominal ascites. Stable small right pleural effusion. No new mass es or adenopathy identified. Stable mid abdominal mesenteric lesion.
== END | disposition home or self-care (01) ==
LOC: RADCTMAIN 07:40
PROVIDERS: ATTEND Internal Medicine Hematology & Oncology
DX: C56.9 Malignant neoplasm of unspecified ovary (principal); J90 Pleural effusion, not elsewhere classified; Z88.5 Allergy status to narcotic agent; K66.8 Other specified disorders of peritoneum
CPT/HCPCS: 71260; 74177; Q9967

== ENCOUNTER → 2018-10-06 | Outpatient (CLI) | payer MEDICARE ==
--- NOTE | 2018-10-06 15:48 | US ---
EXAMINATION TYPE: US chest DATE OF EXAM: 10/06/2018 COMPARISON: NONE CLINICAL HISTORY: J90 PLEURAL EFFUSION. Pleural effusion TECHNIQUE: Targeted ultrasound of the posterior lower bilateral hemithoraces EXAM MEASUREMENTS: Right Pleural Effusion pocket size: 4.4 cm Right skin surface to fluid distance: 3.9 cm Left Pleural Effusion pocket size: no significant fluid collection visualized at this time Right side marked for possible thoracentesis outside the dept. Left side NOT marked for possible thoracentesis outside the dept. Pulmonologists are able to review the images in the patient?s EMR. IMPRESSIONS: There is a moderate right pleural effusion
== END | disposition home or self-care (01) ==
LOC: RADUSMAIN 14:50
PROVIDERS: ATTEND Internal Medicine
DX: J90 Pleural effusion, not elsewhere classified (principal)
CPT/HCPCS: 76604

== ENCOUNTER 2018-10-09 13:25 | Outpatient (CLI) | payer MEDICARE ==
[2018-10-09 14:33] LABS: Mean Platelet Volume 7.4
[2018-10-09 14:40] LABS: Prothrombin Time 10.9 sec (9.0-12.0)
[2018-10-09 14:46] VITALS: RESP 18; TEMP 97.6
[2018-10-09 15:02] LABS: Platelet Count 90 k/uL (150-450)
--- NOTE | 2018-10-09 15:17 | US ---
Ultrasound-guided therapeutic and diagnostic thoracentesis DATE OF EXAM: 10/09/2018 CLINICAL HISTORY: Right pleural effusion The procedure was discussed with the patient. The risks, complications, benefits, and alternatives we re discussed and any questions were answered. Informed consent was obtained. The patient was placed supine on the ultrasound table and prepped and draped in the usual sterile fas hion. All elements of maximal barrier and sterile technique were utilized. Under ultrasound guidance, access into the pleural space was obtained, via the thoracentesis catheter system and direct ultrasound guidance. Ap proximately 0.45 liters of straw-colored fluid was removed. The patient was stable throughout the procedure and remained stable upon discharge from Department of Radiology. IMPRESSION: 1. Successful therapeutic and diagnostic thoracentesis under ultrasound guidance.
--- NOTE | 2018-10-09 15:29 | XR ---
EXAMINATION TYPE: XR chest 1V portable DATE OF EXAM: 10/09/2018 COMPARISON: 10/06/2018 HISTORY: Post right thoracentesis TECHNIQUE: Single frontal view of the chest is obtained. FINDINGS: Cardiothymic and cardiac device noted. Chronic elevation the right hemidiaphragm noted and there is interval reduction in amount pleural fluid and consolidation on the right. No sizable pneum othorax. Atherosclerotic change aorta. Diffuse osteopenia. IMPRESSION: No pneumothorax post thoracentesis. Interval improvement in appearance of the chest.
[2018-10-09 15:47] VITALS: BP 134/76; PULSE 106
== END 2018-10-09 15:49 | disposition home or self-care (01) ==
LOC: RADUSMAIN 13:25
PROVIDERS: ATTEND Internal Medicine
DX: J91.8 Pleural effusion in other conditions classified elsewhere (principal); R91.8 Other nonspecific abnormal finding of lung field
CPT/HCPCS: 32555; 36415; 71045; 85049; 85610; 88108; 88305; 88341; 88342

== ENCOUNTER → 2018-10-09 | Day surgery (SDC) | payer MEDICARE ==
[~2018-10-09] MED LIST: SODIUM CHLORIDE 0.9% 500 ML 500 ML in EMPTY BAG 1 BAG IV PRN
[2018-10-09 12:36] VITALS: BP 117/78; PULSE 80; RESP 16; TEMP 98
[2018-10-09 19:26] LABS: Appearance,BF Clear
[2018-10-09 19:27] LABS: Mononuclear WBC,Body Fluid 87 %; Polynuclear WBC,Body Fluid 13 %; Total Cells Counted,Body Fluid 100
[2018-10-10 00:48] LABS: Total Protein, Body Fluid 2600 mg/dL
[2018-10-11 13:42] LABS: Nucleated Cells, Body Fluid 515 /uL
[2018-10-12 10:04] LABS: RBC, Body Fluid 905 /uL
== END ==
LOC: PROCWHC3 12:08
PROVIDERS: ATTEND Internal Medicine
DX: J90 Pleural effusion, not elsewhere classified (principal); Z53.8 Procedure and treatment not carried out for other reasons
CPT/HCPCS: 82945; 83615; 84157; 87070; 87075; 87205; 89050

== ENCOUNTER 2019-01-27 12:38 | Inpatient (IN) | payer MEDICARE ==
--- NOTE | 2019-01-27 13:17 | ED ---
SOB HPI - General Chief Complaint: Shortness of Breath Stated Complaint: SOB Time Seen by Provider: 01/27/19 12:50 Source: patient, family, RN notes reviewed Mode of arrival: wheelchair Limitations: no limitations - History of Present Illness Initial Comments: This is a 73-year-old female with a history of possible congestive heart failure with his had recent treatment with Lasix who presents with complaints of exertional dyspnea for the past several weeks getting worse no fevers chills nausea vomiting sweats cough no chest pain no other symptoms. No peripheral edema. She states she was given a trial Lasix and if that fails she was afebrile lung drained. No other modifying factors at this time MD Complaint: shortness of breath - Related Data Home Medications Medication Instructions Recorded Confirmed Apixaban [Eliquis] 5 mg PO BID 10/09/18 01/27/19 Capecitabine [Xeloda] 1,500 mg PO DIRECTED 01/27/19 01/27/19 Capecitabine [Xeloda] 300 mg PO DIRECTED 01/27/19 01/27/19 Digoxin [Lanoxin] 125 mcg PO DAILY 01/27/19 01/27/19 Furosemide [Lasix] 20 mg PO DAILY PRN 01/27/19 01/27/19 Metoprolol Tartrate [Lopressor] 25 mg PO BID 01/27/19 01/27/19 Spironolactone 25 mg PO DAILY PRN 01/27/19 01/27/19 Verapamil [Isoptin] 80 mg PO BID 01/27/19 01/27/19 Previous Rx's Medication Instructions Recorded Magnesium Oxide [Mag-Ox] 250 mg PO TID #1 tablet 08/05/18 Allergies Allergy/AdvReac Type Severity Reaction Status Date / Time hydromorphone [From Dilaudid] AdvReac Hallucinati Verified 01/27/19 13:57 ons Review of Systems ROS Statement: Those systems with pertinent positive or pertinent negative responses have been documented in the HPI. ROS Other: All systems not noted in ROS Statement are negative. Past Medical History Past Medical History: Atrial Fibrillation, Atrial Flutter, Cancer, Hyperlipidemia, Hypertension, Pulmonary Embolus (PE) Additional Past Medical History / Comment(s): Metastatic ovarian cancer with hysterectomy/debulking and chemotherapy last dose 07/14/18, pancytopenia d/t chemo, afib/flutter with RVR in past, 2 pulmonary embolisms that pt believes were on the R side, 04/10/18 pt had acute CHF with pleural effusion and R sided t horacentesis, diverticular disease. History of Any Multi-Drug Resistant Organisms: None Reported Past Surgical History: Appendectomy, Cholecystectomy, Hysterectomy, Pacemaker, Tonsillectomy, Tubal Ligation Additional Past Surgical History / Comment(s): Debulking surgery approximately 2016, cervical polypectomies, colonoscopies. Pacemaker - 09-02-2018 Past Anesthesia/Blood Transfusion Reactions: Motion Sickness, Postoperative Nausea & Vomiting (PONV) Additional Past Anesthesia/Blood Transfusion Reaction / Comment(s): Pt believes she recieved blood with her debulking surgery. Type of Cardiac Device: Permanent Pacemaker Device Placement Date:: 09-02-2018 Past Psychological History: No Psychological Hx Reported Smoking Status: Never smoker Past Alcohol Use History: Rare Past Drug Use History: None Reported - Past Family History Mother Family Medical History: AFIB, Chest Pain / Angina, Diabetes Mellitus, Hypertension Additional Family Medical History / Comment(s): Mother is 92 yrs old. Father Family Medical History: Cancer Additional Family Medical History / Comment(s): Father of lung cancer at the age of 78yrs. General Exam - General Exam Comments Initial Comments: Is a well-developed well-nourished awake alert oriented 3 female Limitations: no limitations General appearance: alert, in no apparent distress Head exam: Present: atraumatic, normocephalic, normal inspection Eye exam: Present: normal appearance, PERRL, EOMI. Absent: scleral icterus, conjunctival injection, periorbital swelling ENT exam: Present: normal exam, mucous membranes moist Neck exam: Present: normal inspection. Absent: tenderness, meningismus, lymphadenopathy Respiratory exam: Present: decreased breath sounds, other (Marked decreased breath sounds the right side with dullness to percussion consistent with an effusion.). Absent: respiratory distress, wheezes, rales, rhonchi, stridor Cardiovascular Exam: Present: regular rate, normal rhythm, normal heart sounds. Absent: systolic murmur, diastolic murmur, rubs, gallop, clicks GI/Abdominal exam: Present: soft, normal bowel sounds. Absent: distended, tenderness, guarding, rebound, rigid Extremities exam: Present: normal inspection, full ROM, normal capillary refill. Absent: tenderness, pedal edema, joint swelling, calf tenderness Back exam: Present: normal inspection Neurological exam: Present: alert, oriented X3, CN II-XII intact Psychiatric exam: Present: normal affect, normal mood Skin exam: Present: warm, dry, intact, normal color. Absent: rash Course Vital Signs 01/27/19 01/27/19 01/27/19 12:39 13:35 14:30 Temperature 97.3 F L Pulse Rate 59 L 49 L 52 L Respiratory 18 16 16 Rate Blood Pressure 107/77 111/77 O2 Sat by Pulse 97 97 95 Oximetry 01/27/19 15:31 Temperature 97.7 F Pulse Rate 57 L Respiratory 18 Rate Blood Pressure 116/66 O2 Sat by Pulse 98 Oximetry Medical Decision Making - Medical Decision Making I did discuss findings with the patient and her . Patient be admitted for evaluation by cardiology and by pulmonary medicine I did discuss case with Dr. Dale. - Lab Data Result diagrams: 01/27/19 13:16 01/27/19 14:38 Lab Results 01/27/19 01/27/19 01/27/19 Range/Units 13:16 13:16 14:38 WBC 6.3 (3.8-10.6) k/uL RBC 2.93 L (3.80-5.40) m/uL Hgb 11.7 (11.4-16.0) gm/dL Hct 35.9 (34.0-46.0) % MCV 122.3 H (80.0-100.0) fL MCH 40.0 H (25.0-35.0) pg MCHC 32.7 (31.0-37.0) g/dL RDW 18.6 H (11.5-15.5) % Plt Count 215 (150-450) k/uL Neutrophils % 83 % Lymphocytes % 10 % Monocytes % 4 % Eosinophils % 2 % Basophils % 1 % Neutrophils # 5.2 (1.3-7.7) k/uL Lymphocytes # 0.6 L (1.0-4.8) k/uL Monocytes # 0.2 (0-1.0) k/uL Eosinophils # 0.2 (0-0.7) k/uL Basophils # 0.0 (0-0.2) k/uL Manual Slide Review Performed Poikilocytosis Slight Anisocytosis Slight Macrocytosis Marked A PT 13.1 H (9.0-12.0) sec INR 1.3 H (<1.2) APTT 19.7 L (22.0-30.0) sec Sodium (137-145) mmol/L Potassium (3.5-5.1) mmol/L Chloride (98-107) mmol/L Carbon Dioxide (22-30) mmol/L Anion Gap mmol/L BUN (7-17) mg/dL Creatinine (0.52-1.04) mg/dL Est GFR (CKD-EPI)AfAm (>60 ml/min/1.73 sqM) Est GFR (CKD-EPI)NonAf (>60 ml/min/1.73 sqM) Glucose (74-99) mg/dL Calcium (8.4-10.2) mg/dL Magnesium (1.6-2.3) mg/dL Total Bilirubin (0.2-1.3) mg/dL AST (14-36) U/L ALT (9-52) U/L Alkaline Phosphatase (38-126) U/L Creatine Kinase (30-135) U/L Troponin I (0.000-0.034) ng/mL NT-Pro-B Natriuret Pep 5120 pg/mL Total Protein (6.3-8.2) g/dL Albumin (3.5-5.0) g/dL 01/27/19 01/27/19 Range/Units 14:38 14:38 WBC (3.8-10.6) k/uL RBC (3.80-5.40) m/uL Hgb (11.4-16.0) gm/dL Hct (34.0-46.0) % MCV (80.0-100.0) fL MCH (25.0-35.0) pg MCHC (31.0-37.0) g/dL RDW (11.5-15.5) % Plt Count (150-450) k/uL Neutrophils % % Lymphocytes % % Monocytes % % Eosinophils % % Basophils % % Neutrophils # (1.3-7.7) k/uL Lymphocytes # (1.0-4.8) k/uL Monocytes # (0-1.0) k/uL Eosinophils # (0-0.7) k/uL Basophils # (0-0.2) k/uL Manual Slide Review Poikilocytosis Anisocytosis Macrocytosis PT (9.0-12.0) sec INR (<1.2) APTT (22.0-30.0) sec Sodium 140 (137-145) mmol/L Potassium 4.1 (3.5-5.1) mmol/L Chloride 98 (98-107) mmol/L Carbon Dioxide 29 (22-30) mmol/L Anion Gap 13 mmol/L BUN 31 H (7-17) mg/dL Creatinine 1.52 H (0.52-1.04) mg/dL Est GFR (CKD-EPI)AfAm 40 (>60 ml/min/1.73 sqM) Est GFR (CKD-EPI)NonAf 34 (>60 ml/min/1.73 sqM) Glucose 177 H (74-99) mg/dL Calcium 9.2 (8.4-10.2) mg/dL Magnesium 1.3 L (1.6-2.3) mg/dL Total Bilirubin 1.5 H (0.2-1.3) mg/dL AST 37 H (14-36) U/L ALT 16 (9-52) U/L Alkaline Phosphatase 131 H (38-126) U/L Creatine Kinase 38 (30-135) U/L Troponin I 0.028 (0.000-0.034) ng/mL NT-Pro-B Natriuret Pep pg/mL Total Protein 6.6 (6.3-8.2) g/dL Albumin 3.8 (3.5-5.0) g/dL - EKG Data -: EKG Interpreted by Me (EKG shows electronic pacemaker rhythm of 50 QRS 172 QT since QTC 482/439 ) - Radiology Data Radiology results: report reviewed (I did review the imaging and report or is a right pleural effusion noted infiltrates not ruled out.), image reviewed Disposition Clinical Impression: Congestive heart failure, Recurrent right pleural effusion Disposition: ADMITTED IP TO THIS [facility] Condition: Fair Referrals: Sergey Roberts DO [Primary Care Provider] - 1-2 days
[2019-01-27 13:32] LABS: Anisocytosis Slight; Basophils % (A) 1 %; Eosinophils # (A) 0.2 k/uL (0-0.7); Eosinophils % (A) 2 %; HCT 35.9 % (34.0-46.0); HGB 11.7 gm/dL (11.4-16.0); Lymphocytes # (A) 0.6 k/uL (1.0-4.8); Lymphocytes % (A) 10 %; MCHC 32.7 g/dL (31.0-37.0); MCV 122.3 fL (80.0-100.0); Macrocytosis Marked; Monocytes # (A) 0.2 k/uL (0-1.0); Monocytes % (A) 4 %; Neutrophils # (A) 5.2 k/uL (1.3-7.7); Neutrophils % (A) 83 %; Platelet Count 215 k/uL (150-450); Poikilocytosis Slight; RBC 2.93 m/uL (3.80-5.40); RDW 18.6 % (11.5-15.5); WBC 6.3 k/uL (3.8-10.6)
--- NOTE | 2019-01-27 13:43 | XR ---
EXAMINATION TYPE: XR chest 2V DATE OF EXAM: 01/27/2019 COMPARISON: 01/01/2019 TECHNIQUE: PA and lateral views submitted. HISTORY: Difficulty breathing FINDINGS: Cardiac lead cardiac device seen. The right lower lobe consolidation small effusion. Tiny left effusi on with basilar subsegmental consolidation. Arthropathy of the shoulders. No overt failure. IMPRESSION: 1. Right sided consolidation and pleural effusion. Correlate for pneumonia.
[2019-01-27 15:21] LABS: INR 1.3 (<1.2); Partial Thromboplastin Time 19.7 sec (22.0-30.0); Prothrombin Time 13.1 sec (9.0-12.0)
[2019-01-27 15:26] LABS: Albumin 3.8 g/dL (3.5-5.0); Calcium 9.2 mg/dL (8.4-10.2); Magnesium 1.3 mg/dL (1.6-2.3); Potassium 4.1 mmol/L (3.5-5.1); Total Bilirubin 1.5 mg/dL (0.2-1.3); Total Protein 6.6 g/dL (6.3-8.2)
[2019-01-27] MEDS ORDERED: ONDANSETRON 4 MG/2 ML VIAL IM STA (15:37)
[2019-01-27] MEDS ORDERED: ONDANSETRON 4 MG/2 ML VIAL IVP STA (15:42)
[2019-01-27] MEDS ORDERED: SPIRONOLACTONE 25 MG TAB PO PRN (16:32)
[2019-01-27] MEDS ORDERED: FUROSEMIDE 20 MG TAB PO PRN (16:32)
[2019-01-27] MEDS ORDERED: FUROSEMIDE 10 MG/ML 4 ML VIAL IV STA (16:33)
[2019-01-27] MEDS: CAPECITABINE 1500 MG PO SCH (17:46)
[2019-01-27] MEDS: CAPECITABINE PO SCH (17:47)
[2019-01-27] MEDS: APIXABAN 5 MG TAB PO SCH (17:47)
[2019-01-27] MEDS ORDERED: IPRATROPIUM-ALBUTEROL 3 ML NEB INHALATION PRN (19:40)
[2019-01-27] MEDS: IPRATROPIUM-ALBUTEROL 3 ML NEB INHALATION SCH (19:59)
--- NOTE | 2019-01-27 20:44 | HP ---
HISTORY AND PHYSICAL CHIEF COMPLAINTS: Shortness of breath as well as diarrhea. HISTORY OF PRESENT ILLNESS: This 73-year-old woman with a past medical history of multiple medical problems, including CHF, history of persistent atrial fibrillation, history of hypertension, history of hyperlipidemia, history of metastatic ovarian cancer with debulking surgery and chemotherapy, history of hypomagnesemia, being followed by Dr. Roberts in the outpatient setting, was complaining of shortness of breath. The patient had a recent treatment with Lasix. Medication was adjusted in the outpatient setting. The patient also had right pleural effusion which was tapped multiple times. Because of increasing symptoms, the patient came to [facility] and was admitted for further evaluation and treatment. The previous 2D echo showed ejection fraction of 50% to 55%. There is no history of any fever, rigor or chills. No history of headache, loss of consciousness, seizures. The chest x-ray, which was evaluated personally by me, showed CHF as well as right pleural effusion. The patient was also complaining of diarrhea which is incessant for more than the last 2 years, which has worsened recently. PAST MEDICAL HISTORY: 1. History of atrial fibrillation/flutter. 2. History of hypertension. 3. Hyperlipidemia. 4. History of pulmonary embolism. 5. Metastatic ovarian cancer. 6. Appendectomy. 7. Cholecystectomy. HOME MEDICATIONS: 1. Isoptin 80 mg p.o. b.i.d. 2. Lopressor 25 mg p.o. b.i.d. 3. Lanoxin 125 mcg p.o. daily. 4. Xeloda 1500 mg p.o. before meals p.r.n. 5. Xeloda 300 mg p.r.n. 6. Aldactone 25 mg daily p.r.n. 7. Lasix 20 mg daily p.r.n. 8. Magnesium oxide 250 mg p.o. t.i.d. 9. Eliquis 5 mg p.o. b.i.d. ALLERGIES: DILAUDID. FAMILY HISTORY: History of atrial fibrillation, chest pain, diabetes, hypertension. SOCIAL HISTORY: No history of smoking. No history of alcohol intake. REVIEW OF SYSTEMS: ENT: Diminished hearing. Diminished vision. CARDIOVASCULAR SYSTEM: As mentioned earlier. RESPIRATORY SYSTEM: As mentioned earlier. GI: No nausea, vomiting. : As mentioned earlier. NERVOUS SYSTEM: No numbness, weakness. ALLERGY/IMMUNOLOGY: No asthma, hayfever. MUSCULOSKELETAL: As mentioned earlier. HEMATOLOGY/ONCOLOGY: As mentioned earlier. ENDOCRINE: As mentioned earlier. CONSTITUTIONAL: As mentioned earlier. DERMATOLOGY: Negative. RHEUMATOLOGY: Negative. PSYCHIATRY: As mentioned earlier. PHYSICAL EXAMINATION: Patient is alert and oriented x3. Pulse 65, blood pressure 112/72, respiration 17, temperature 97.8, pulse ox 92% on room air. HEENT: Conjunctivae normal. Oral mucosa moist. NECK: No jugular venous distention. No carotid bruit. No lymph node enlargement. CARDIOVASCULAR SYSTEM: S1, S2 muffled, irregular. No S3. No S4. RESPIRATORY SYSTEM: Breath sounds diminished at the bases. A few scattered rhonchi and crackles. Breath sounds diminished on the right side. ABDOMEN: Soft, obese, nontender. No mass palpable. LEGS: No edema. No swelling. NERVOUS SYSTEM: Higher functions as mentioned earlier. Moves all 4 limbs. No focal motor or sensory deficit. LYMPHATICS: No lymph node palpable in neck, axillae or groin. SKIN: No ulcer, rash, bleeding. JOINTS: No active deforming arthropathy. LABS: WBC 6.3, hemoglobin 11.7. MCV is 122.3. Creatinine is 1.52. Glucose 177, magnesium 1.3. Total bilirubin 1.5, alkaline phosphatase 131. ASSESSMENT: 1. Congestive heart failure, acute exacerbation, with acute on chronic diastolic dysfunction. 2. Right pleural effusion, recurrent. 3. Previous history of pleural effusion and thoracocentesis. 4. History of metastatic ovarian malignancy, status post debulking surgery and on chemotherapy. 5. Persistent atrial fibrillation. 6. History of sinus pause and tachy-juan a syndrome. 7. Hypertension. 8. Hyperlipidemia. 9. Obesity with body mass index 10.History of pulmonary embolism. 11.History of pancytopenia. 12.History of diverticular disease. 13.History of cholecystectomy. 14.History of motion sickness. 15.FULL CODE. RECOMMENDATIONS AND DISCUSSION: In this 73-year-old woman who presented with multiple medical issues, we will monitor the patient closely, continue the current management, continue with symptomatic treatment. I recommend continuing with the IV Lasix. I would also recommend a cardiology consultation, pulmonary consultation with Dr. Velasquez. Resume the home medications. Guarded prognosis because of multiple complex medical issues. Further recommendations to follow. Also recommend stool sample for C difficile colitis. If stool for C difficile is negative, use Imodium on a p.r.n. basis. Prognosis guarded because of multiple complex medical issues, as mentioned earlier. Further recommendations to follow. A copy of this dictation is being forwarded to Dr. Roberts, who is following the patient in the outpatient setting. MMODL / IJN: [id number] / MTDD
[2019-01-27] MEDS: MAGNESIUM OXIDE 400 MG TAB PO SCH (21:01)
[2019-01-27] MEDS: VERAPAMIL 80 MG TAB PO SCH (21:01)
[2019-01-27] MEDS: METOPROLOL TARTRATE 25 MG TAB PO SCH (21:50)
[2019-01-27] MEDS: FUROSEMIDE 10 MG/ML 4 ML VIAL IV SCH (23:19)
[2019-01-28 06:04] LABS: Anisocytosis Slight; Basophils % (A) 0 %; Eosinophils # (A) 0.2 k/uL (0-0.7); Eosinophils % (A) 3 %; HCT 28.6 % (34.0-46.0); Hypochromasia Slight; Lymphocytes # (A) 1.1 k/uL (1.0-4.8); Lymphocytes % (A) 21 %; MCH 39.7 pg (25.0-35.0); MCHC 32.8 g/dL (31.0-37.0); Mean Platelet Volume 7.4; Monocytes # (A) 0.3 k/uL (0-1.0); Monocytes % (A) 5 %; Neutrophils # (A) 3.5 k/uL (1.3-7.7); Neutrophils % (A) 68 %; Platelet Count 153 k/uL (150-450); Poikilocytosis Slight; RBC 2.37 m/uL (3.80-5.40); RDW 17.9 % (11.5-15.5); WBC 5.1 k/uL (3.8-10.6)
[2019-01-28 06:09] LABS: Calcium 8.5 mg/dL (8.4-10.2); Macrocytosis Marked; Potassium 3.6 mmol/L (3.5-5.1)
[2019-01-28 06:13] LABS: HGB 9.4 gm/dL (11.4-16.0)
[2019-01-28] MEDS: IPRATROPIUM-ALBUTEROL 3 ML NEB INHALATION SCH ×4 (08:38→20:09)
[2019-01-28] MEDS: MAGNESIUM OXIDE 400 MG TAB PO SCH ×3 (09:25→20:31)
[2019-01-28] MEDS: METOPROLOL TARTRATE 25 MG TAB PO SCH ×2 (09:25→20:31)
[2019-01-28] MEDS: FUROSEMIDE 10 MG/ML 4 ML VIAL IV SCH ×2 (09:25→20:32)
[2019-01-28] MEDS: VERAPAMIL 80 MG TAB PO SCH ×3 (09:26→20:27)
[2019-01-28] MEDS: APIXABAN 5 MG TAB PO SCH ×2 (09:27→20:27)
[2019-01-28] MEDS: DIGOXIN 125 MCG TAB PO SCH (09:30)
--- NOTE | 2019-01-28 12:33 | P.CRDCN ---
History of Present Illness Consult date: 01/28/19 Reason for Consult (text): CHF Chief complaint: progressively worsening shortness of breath History of present illness: This is a pleasant 73-year-old patient who follows with Dr. YEHUDA Pearson in the office. She has a history of persistent atrial fibrillation, permanent pacemaker, hyperlipidemia, hypertension, metastatic ovarian cancer, history of PE, currently undergoing chemotherapy with Dr. Badillo with oral agents. She's had a history of thoracentesis in the past once in March 2018 and again in September of this year cytology of both show mesothelial cells, macrophages and mixed inflammatory cells, no cytologically malignant cells identified. Most recent echocardiogram from July of this year showed low normal LV systolic function with ejection fraction between 50-55% with severe mitral regurgitation and moderate tricuspid regurgitation. She presented to the emergency department on this admission with complaints of progressively worsening shortness of breath over the last couple of weeks. No significant edema, no complaints of orthopnea or PND. She does complain of diarrhea that's worsened over the last couple of weeks. She's had no chest discomfort, palpitations, but has had some lightheadedness with the shortness of breath. Chest x-ray on admission showed significant right-sided pleural effusion. Patient is being followed by Dr. Pink who according to the patient is planning for thoracentesis tomorrow. Return values on admission showed white blood cell count of 6000, hemoglobin 1 1.7, normal electrolytes, BUN 31, creatinine 1.5 to, magnesium 1.3. Troponins have been insignificant 3. NT proBNP is elevated at 5120 with last NT proBNP of over 6000 in March. Past Medical History Past Medical History: Atrial Fibrillation, Atrial Flutter, Cancer, Hyperlipidemia, Hypertension, Pulmonary Embolus (PE) Additional Past Medical History / Comment(s): Metastatic ovarian cancer with hysterectomy/debulking and chemotherapy last dose 07/14/18, pancytopenia d/t chemo, afib/flutter with RVR in past, 2 pulmonary embolisms that pt believes were on the R side, 04/10/18 pt had acute CHF with pleural effusion and R sided thoracentesis, diverticular disease. History of Any Multi-Drug Resistant Organisms: None Reported Past Surgical History: Appendectomy, Cholecystectomy, Hysterectomy, Pacemaker, Tonsillectomy, Tubal Ligation Additional Past Surgical History / Comment(s): Debulking surgery approximately 2015, cervical polypectomies, colonoscopies. Pacemaker - 09-02-2018 Past Anesthesia/Blood Transfusion Reactions: Motion Sickness, Postoperative Nausea & Vomiting (PONV) Additional Past Anesthesia/Blood Transfusion Reaction / Comment(s): Pt believes she recieved blood with her debulking surgery. Type of Cardiac Device: Permanent Pacemaker Device Placement Date:: 09-02-2018 Past Psychological History: No Psychological Hx Reported Additional Psychological History / Comment(s): Pt resides with her spouse. She is independent. Smoking Status: Never smoker Past Alcohol Use History: Rare Past Drug Use History: None Reported - Past Family History Mother Family Medical History: AFIB, Chest Pain / Angina, Diabetes Mellitus, Hypertension Additional Family Medical History / Comment(s): Mother is 92 yrs old. Father Family Medical History: Cancer Additional Family Medical History / Comment(s): Father of lung cancer at the age of 78yrs. Medications and Allergies Home Medications Medication Instructions Recorded Confirmed Type Magnesium Oxide [Mag-Ox] 250 mg PO TID #1 tablet 08/05/18 01/27/19 Rx Apixaban [Eliquis] 5 mg PO BID 10/09/18 01/27/19 History Capecitabine [Xeloda] 1,500 mg PO DIRECTED 01/27/19 01/27/19 History Capecitabine [Xeloda] 300 mg PO DIRECTED 01/27/19 01/27/19 History Digoxin [Lanoxin] 125 mcg PO DAILY 01/27/19 01/27/19 History Furosemide [Lasix] 20 mg PO DAILY PRN 01/27/19 01/27/19 History Metoprolol Tartrate [Lopressor] 25 mg PO BID 01/27/19 01/27/19 History Spironolactone 25 mg PO DAILY PRN 01/27/19 01/27/19 History Verapamil [Isoptin] 80 mg PO BID 01/27/19 01/27/19 History Allergies Allergy/AdvReac Type Severity Reaction Status Date / Time hydromorphone [From Dilaudid] AdvReac Hallucinati Verified 01/27/19 13:57 ons Physical Exam Vitals: Vital Signs Temp Pulse Pulse Resp BP BP Pulse Ox 01/28/19 08:00 56 L 01/28/19 07:00 97.5 F L 56 L 16 94/64 96 01/28/19 01:55 97.6 F 49 L 18 93/59 99 01/27/19 19:24 97.8 F 65 17 112/72 92 L 01/27/19 17:24 98.2 F 01/27/19 17:15 97.7 F 52 L 18 112/62 98 01/27/19 17:00 52 L 18 104/58 95 01/27/19 15:31 97.7 F 57 L 18 116/66 98 01/27/19 14:30 52 L 16 111/77 95 01/27/19 13:35 49 L 16 97 01/27/19 12:39 97.3 F L 59 L 18 107/77 97 Intake and Output 01/27/19 01/28/19 01/28/19 22:59 06:59 14:59 Intake Total 118 Balance 118 Intake: Oral 118 Other: # Voids 2 1 PHYSICAL EXAMINATION: HEENT: Head is atraumatic, normocephalic. Pupils equal, round. Neck is supple. There is no elevated jugular venous pressure. HEART EXAMINATION: Heart sounds regular, S1 and S2 with a holosystolic murmur at the apex. CHEST EXAMINATION: Lungs reveal diminished air entry to right lower lobe with crackles. No chest wall tenderness is noted on palpation or with deep breathing. ABDOMEN: Soft, nontender. Bowel sounds are heard. No organomegaly noted. EXTREMITIES: 2+ peripheral pulses with no evidence of peripheral edema and no calf tenderness noted. NEUROLOGIC patient is awake, alert and oriented x3. . Results 01/28/19 05:25 01/28/19 05:25 Cardiac Enzymes 01/27/19 01/27/19 01/27/19 Range/Units 14:38 14:38 20:44 AST 37 H (14-36) U/L Troponin I 0.028 0.031 (0.000-0.034) ng/mL 01/28/19 Range/Units 05:25 AST (14-36) U/L Troponin I 0.030 (0.000-0.034) ng/mL Coagulation 01/27/19 Range/Units 14:38 PT 13.1 H (9.0-12.0) sec APTT 19.7 L (22.0-30.0) sec CBC 01/27/19 01/28/19 Range/Units 13:16 05:25 WBC 6.3 5.1 (3.8-10.6) k/uL RBC 2.93 L 2.37 L (3.80-5.40) m/uL Hgb 11.7 9.4 L D (11.4-16.0) gm/dL Hct 35.9 28.6 L (34.0-46.0) % Plt Count 215 153 (150-450) k/uL Comprehensive Metabolic Panel 01/27/19 01/28/19 Range/Units 14:38 05:25 Sodium 140 138 (137-145) mmol/L Potassium 4.1 3.6 (3.5-5.1) mmol/L Chloride 98 98 (98-107) mmol/L Carbon Dioxide 29 34 H (22-30) mmol/L BUN 31 H 37 H (7-17) mg/dL Creatinine 1.52 H 1.78 H (0.52-1.04) mg/dL Glucose 177 H 98 (74-99) mg/dL Calcium 9.2 8.5 (8.4-10.2) mg/dL AST 37 H (14-36) U/L ALT 16 (9-52) U/L Alkaline Phosphatase 131 H (38-126) U/L Total Protein 6.6 (6.3-8.2) g/dL Albumin 3.8 (3.5-5.0) g/dL Current Medications Generic Name Dose Route Start Last Admin Trade Name Freq PRN Reason Stop Dose Admin Albuterol/Ipratropium 3 ml 01/27/19 20:00 01/28/19 11:28 Duoneb 0.5 Mg-3 Mg/3 Ml Soln INHALATION Not Given RT-TID ERIN Albuterol/Ipratropium 3 ml 01/27/19 19:40 Duoneb 0.5 Mg-3 Mg/3 Ml Soln INHALATION RT-TID PRN Shortness Of Breath Or Wheezing Apixaban 5 mg 01/27/19 21:00 01/28/19 09:27 Eliquis PO Not Given BID [facility] Digoxin 125 mcg 01/28/19 09:00 01/28/19 09:30 Lanoxin PO Not Given DAILY [facility] Furosemide 40 mg 01/28/19 21:00 Lasix IV Q12HR [facility] Magnesium Oxide 400 mg 01/27/19 22:00 01/28/19 09:25 Mag-Ox PO 400 mg TID ERIN Administration Metoprolol Tartrate 25 mg 01/27/19 21:00 01/28/19 09:25 Lopressor PO 25 mg BID ERIN Administration Patient's Own ( 1,500 mg 01/27/19 16:45 01/27/19 17:46 Capecitabine [Xeloda PO Not Given ] 1,500 Mg) DIRECTED ERIN Patient's Own ( 300 mg 01/27/19 16:45 01/27/19 17:47 Capecitabine [Xeloda PO Not Given ] 300 Mg) DIRECTED ERIN Spironolactone 25 mg 01/27/19 16:32 Aldactone PO DAILY PRN Edema Verapamil HCl 80 mg 01/27/19 21:00 01/28/19 09:30 Isoptin PO Not Given BID ERIN Intake and Output 01/27/19 01/28/19 01/28/19 22:59 06:59 14:59 Intake Total 118 Balance 118 Intake: Oral 118 Other: # Voids 2 1 01/28/19 05:25 01/28/19 05:25 Assessment and Plan Assessment: #1 acute on chronic diastolic congestive heart failure #2 right sided pleural effusion #3 severe mitral regurgitation #4 persistent atrial fibrillation #5 permanent pacemaker #6 history of metastatic ovarian cancer Plan: From cardiology's perspective, due to worsening renal function, we will decrease Lasix to 40 mg IV every 12 hours. We will monitor renal function and electrolytes. We will continue to follow patient for a further recommendations accordingly. FOOD AND BEVERAGE CHECKER note has been reviewed, I agree with a documented findings and plan of care. Patient was seen and examined.
[2019-01-28 13:47] VITALS: BMI 31.3
--- NOTE | 2019-01-28 14:08 | P.CNPUL ---
History of Present Illness Consult date: 01/28/19 Reason for consult: pleural effusion History of present illness: [place] 3-year-old female patient with known history of metastatic ovarian cancer, chronic right-sided pleural effusion, chronic atrial fibrillation and the patient is a permanent pacemaker in place and most recent echo cardiac exam showed a normal LV function with an ejection fraction of 50-55% along with severe MR and moderate tricuspid regurgitation, came into the hospital because of worsening shortness of breath. ProBNP level was above 5000. Troponins were negative. Chest x-ray revealed volume loss along with some right lung opacity consistent with right-sided pleural effusion. This is noted on previous evaluation. The patient undergone 2 thoracenteses in the past the last one being in September 2018 and the prior one was in 2018. In both situations, the patient had a negative fluid cytology for malignancy. I was asked to consider this patient for thoracentesis. The patient has been taken Eliquis and long- term articulation regarding her atrial fibrillation. She is also taking Xeloda regarding her ovarian cancer. She has nausea and she has diarrhea and dimi nished appetite. She has had previous history of pulmonary embolism. Review of Systems Constitutional: Reports fatigue, Reports weakness Eyes: denies blurred vision, denies bulging eye, denies decreased vision Ears: deny: decreased hearing, ear discharge, earache, tinnitus Ears, nose, mouth and throat: Denies headache, Denies sore throat Cardiovascular: Reports dyspnea on exertion, Reports shortness of breath Respiratory: Reports dyspnea Gastrointestinal: Denies abdominal pain, Denies diarrhea, Denies nausea, Denies vomiting Genitourinary: Denies dysuria, Denies hematuria Menstruation: Reports as per HPI Musculoskeletal: Reports as per HPI Musculoskeletal: absent: ankle pain, ankle stiffness, ankle swelling Integumentary: Denies pruritus, Denies rash Neurological: Denies numbness, Denies weakness Psychiatric: Reports as per HPI Endocrine: Reports as per HPI, Reports fatigue Hematologic/Lymphatic: Reports as per HPI Allergic/Immunologic: Reports as per HPI Past Medical History Past Medical History: Atrial Fibrillation, Atrial Flutter, Cancer, Hyperlipidemia, Hypertension, Pulmonary Embolus (PE) Additional Past Medical History / Comment(s): Metastatic ovarian cancer with hysterectomy/debulking and chemotherapy last dose 07/14/18, pancytopenia d/t c hemo, afib/flutter with RVR in past, 2 pulmonary embolisms that pt believes were on the R side, 04/10/18 pt had acute CHF with pleural effusion and R sided thoracentesis, diverticular disease. History of atrial fibrillation and the patient is a permanent pacemaker in place for now. History of Any Multi-Drug Resistant Organisms: None Reported Past Surgical History: Appendectomy, Cholecystectomy, Hysterectomy, Pacemaker, Tonsillectomy, Tubal Ligation Additional Past Surgical History / Comment(s): Debulking surgery approximately 2015, cervical polypectomies, colonoscopies. Pacemaker - 09-02-2018 Past Anesthesia/Blood Transfusion Reactions: Motion Sickness, Postoperative Nausea & Vomiting (PONV) Additional Past Anesthesia/Blood Transfusion Reaction / Comment(s): Pt believes she recieved blood with her debulking surgery. Type of Cardiac Device: Permanent Pacemaker Device Placement Date:: 09-02-2018 Past Psychological History: No Psychological Hx Reported Additional Psychological History / Comment(s): Pt resides with her spouse. She is independent. Smoking Status: Never smoker Past Alcohol Use History: Rare Past Drug Use History: None Reported - Past Family History Mother Family Medical History: AFIB, Chest Pain / Angina, Diabetes Mellitus, Hypertension Additional Family Medical History / Comment(s): Mother is 92 yrs old. Father Family Medical History: Cancer Additional Family Medical History / Comment(s): Father of lung cancer at the age of 78yrs. Medications and Allergies Home Medications Medication Instructions Recorded Confirmed Type Magnesium Oxide [Mag-Ox] 250 mg PO TID #1 tablet 08/05/18 01/27/19 Rx Apixaban [Eliquis] 5 mg PO BID 10/09/18 01/27/19 History Capecitabine [Xeloda] 1,500 mg PO DIRECTED 01/27/19 01/27/19 History Capecitabine [Xeloda] 300 mg PO DIRECTED 01/27/19 01/27/19 History Digoxin [Lanoxin] 125 mcg PO DAILY 01/27/19 01/27/19 History Furosemide [Lasix] 20 mg PO DAILY PRN 01/27/19 01/27/19 History Metoprolol Tartrate [Lopressor] 25 mg PO BID 01/27/19 01/27/19 History Spironolactone 25 mg PO DAILY PRN 01/27/19 01/27/19 History Verapamil [Isoptin] 80 mg PO BID 01/27/19 01/27/19 History Allergies Allergy/AdvReac Type Severity Reaction Status Date / Time hydromorphone [From Dilaudid] AdvReac Hallucinati Verified 01/27/19 13:57 ons Physical Exam Vitals: Vital Signs Temp Pulse Pulse Resp BP BP Pulse Ox 01/28/19 08:00 56 L 01/28/19 07:00 97.5 F L 56 L 16 94/64 96 01/28/19 01:55 97.6 F 49 L 18 93/59 99 01/27/19 19:24 97.8 F 65 17 112/72 92 L 01/27/19 17:24 98.2 F 01/27/19 17:15 97.7 F 52 L 18 112/62 98 01/27/19 17:00 52 L 18 104/58 95 01/27/19 15:31 97.7 F 57 L 18 116/66 98 01/27/19 14:30 52 L 16 111/77 95 Intake and Output 01/27/19 01/28/19 01/28/19 22:59 06:59 14:59 Intake Total 354 Balance 354 Intake: Oral 354 Other: # Voids 2 1 3 Weight 80.286 kg General appearance: alert, in no apparent distress Head exam: NC/NT Eye exam: normal appearance, PERRL ENT exam: normal oropharynx, Oral thrush mild base of posterior tongue Neck exam: Supple, Trachea Midline Respiratory exam: No increased respiratory effort normal lung sounds bilaterally, there is diminished breath on the right lung base along with dullness to percussion consistent with a right-sided pleural effusion. Cardiovascular Exam: tachycardia, irregular rhythm GI/Abdominal exam: soft. Absent: tenderness Extremities exam: pedal edema (+1 bilaterally). Absent: calf tenderness Neurological exam: non-focal alert Psychiatric exam: normal affect, normal mood Skin exam: yeast like rash under skin folds abdomen and breast, normal color Results - Laboratory Findings CBC and BMP: 01/28/19 05:25 01/28/19 05:25 PT/INR, D-dimer PT 13.1 sec (9.0-12.0) H 01/27/19 14:38 INR 1.3 (<1.2) H 01/27/19 14:38 Abnormal lab findings: Abnormal Labs 01/27/19 01/27/1901/27/19 13:16 14:38 14:38 RBC 2.93 L Hgb Hct MCV 122.3 H MCH 40.0 H RDW 18.6 H Lymphocytes # 0.6 L Macrocytosis Marked A PT 13.1 H INR 1.3 H APTT 19.7 L Carbon Dioxide BUN 31 H Creatinine 1.52 H Glucose 177 H Magnesium 1.3 L Total Bilirubin 1.5 H AST 37 H Alkaline Phosphatase 131 H 01/28/19 01/28/19 05:25 05:25 RBC 2.37 L Hgb 9.4 L D Hct 28.6 L MCV 121.0 H MCH 39.7 H RDW 17.9 H Lymphocytes # Macrocytosis Marked A PT INR APTT Carbon Dioxide 34 H BUN 37 H Creatinine 1.78 H Glucose Magnesium Total Bilirubin AST Alkaline Phosphatase - Diagnostic Findings Chest x-ray: image reviewed Assessment and Plan Plan: Assessment 1 right-sided pleural effusion, recurrent and the patient has undergone 2 previous thoracenteses in the past with negative fluid cytology for malignancy. Nevertheless, this does not rule out the possibility of malignant right-sided pleural effusion. This problem has become ongoing and chronic. He has also added to this patient's shortness of breath. 2 metastatic ovarian cancer post-systemic chemotherapy with Doxil and carboplatin and she is currently on oral Xeloda 3 illness of breath secondary to above 4 chronic atrial fibrillation, with a preserved LV function and the patient has been on long-term and to coagulation with Eliquis 5 history of pacemaker insertion 6 previous history of pulmonary embolism maintained on long-term and to coagulation with Eliquis 7 hypertension 8 hyperlipidemia 9 severe mitral regurgitation 10 acute kidney injury in the creatinine is up to 1.7 Plan Keep the Eliquis on hold. Some marking of the right chest. Thoracentesis to follow for tomorrow. Cardiology regarding the patient's cardiac problems including A. fib. The patient is a preserved LV function. We'll continue to follow.
--- NOTE | 2019-01-28 15:32 | US ---
EXAMINATION TYPE: US chest DATE OF EXAM: 01/28/2019 COMPARISON: NONE CLINICAL HISTORY: Markings for thoracentesis by pulmonary staff. Pleural effusion TECHNIQUE: Targeted ultrasound of the posterior lower bilateral hemithoraces EXAM MEASUREMENTS: Right Pleural Effusion pocket size: Irregular shaped pocket with largest measurement 6.4cm and small est measurement 1.6 cm Right skin surface to fluid distance: 3.0 cm Left Pleural Effusion pocket size: 0 cm Right side MARKED for possible thoracentesis outside the dept. Left side NOT MARKED for possible thoracentesis outside the dept. Pulmonologists are able to review the images in the patient?s EMR. IMPRESSIONS: There is demonstration of a moderate right pleural effusion.
--- NOTE | 2019-01-28 18:34 | PN ---
PROGRESS NOTE DATE OF SERVICE: 01/28/2019. This 73-year-old woman who was admitted with CHF acute exacerbation also had right pleural effusion. The patient is feeling slightly better. Chest ultrasound has been done. Dr. Pink is planning possibly thoracocenteses tomorrow. No chest pain. No palpitations. No fever. PHYSICAL EXAM: Alert and oriented x3. The pulse is 44, blood pressure 97/55, respirations 16, temperature 98.2, pulse ox 97% on room air. HEENT: Conjunctivae normal. NECK: No JVD. CARDIOVASCULAR: S1, S2 muffled. RESPIRATORY: Breath sounds diminished in the bases. Bilateral scattered rhonchi and crackles. Breath sounds diminished especially in the right lower part. ABDOMEN: Soft. Nontender. NERVOUS SYSTEM: No focal deficits. LABS: WBC 5.9, hemoglobin 9.4, and creatinine is 1.78. ASSESSMENT: 1. Congestive heart failure acute exacerbation with acute on chronic diastolic dysfunction. 2. Right pleural effusion, recurrent. 3. Previous history of pleural effusion with thoracocentesis with no evidence of malignancy. 4. History of metastatic ovarian malignancy status post debulking surgery, is on chemotherapy. 5. Persistent atrial fibrillation. 6. Severe mitral regurgitation. 7. History of sinus pauses and tachy-juan a syndrome. 8. Increased creatinine with chronic kidney disease stage III. 9. Hypertension. 10.Hyperlipidemia. 11.Obesity with body mass index of 31.4. 12.History of pancytopenia. 13.History of pulmonary embolism. 14.History of diverticular disease. 15.History of cholecystectomy. 16.History of motion sickness. 17.FULL CODE. RECOMMENDATIONS AND DISCUSSION: Continue with the current medications, continue with monitoring, symptomatic treatment. Otherwise, thoracocentesis. I would cut down the dose of Lasix and closely monitor with multiple consultants. DVT prophylaxis. Guarded prognosis. Further recommendations to follow. See orders for details. The patient is on apixaban. Closely follow with Cardiology and pulmonology. MMODL / IJN: [id number] /
[2019-01-28] MEDS: CAPECITABINE 1500 MG PO SCH (19:04)
[2019-01-28] MEDS: CAPECITABINE PO SCH (19:05)
[2019-01-29 07:40] LABS: Anisocytosis Slight; Basophils % (A) 0 %; Eosinophils # (A) 0.1 k/uL (0-0.7); Eosinophils % (A) 1 %; HCT 29.3 % (34.0-46.0); HGB 9.7 gm/dL (11.4-16.0); Hypochromasia Slight; Lymphocytes # (A) 0.7 k/uL (1.0-4.8); Lymphocytes % (A) 13 %; MCH 40.2 pg (25.0-35.0); MCHC 33.1 g/dL (31.0-37.0); MCV 121.5 fL (80.0-100.0); Macrocytosis Marked; Mean Platelet Volume 7.9; Monocytes # (A) 0.3 k/uL (0-1.0); Monocytes % (A) 5 %; Neutrophils # (A) 4.3 k/uL (1.3-7.7); Neutrophils % (A) 79 %; Platelet Count 150 k/uL (150-450); Poikilocytosis Slight; RBC 2.41 m/uL (3.80-5.40); RDW 18.6 % (11.5-15.5); WBC 5.4 k/uL (3.8-10.6)
[2019-01-29 07:56] LABS: Calcium 8.5 mg/dL (8.4-10.2); Potassium 3.6 mmol/L (3.5-5.1)
[2019-01-29] MEDS: IPRATROPIUM-ALBUTEROL 3 ML NEB INHALATION SCH ×3 (08:33→19:15)
[2019-01-29] MEDS: APIXABAN 5 MG TAB PO SCH ×2 (10:34→21:20)
[2019-01-29] MEDS: VERAPAMIL 80 MG TAB PO SCH ×2 (10:34→21:20)
[2019-01-29] MEDS: METOPROLOL TARTRATE 25 MG TAB PO SCH ×2 (10:34→19:55)
[2019-01-29] MEDS: MAGNESIUM OXIDE 400 MG TAB PO SCH ×3 (10:42→21:20)
[2019-01-29] MEDS: DIGOXIN 125 MCG TAB PO SCH (10:42)
[2019-01-29] MEDS: FUROSEMIDE 10 MG/ML 4 ML VIAL IV SCH ×3 (10:42→21:20)
[2019-01-29] MEDS: LOPERAMIDE 2 MG CAP PO PRN ×2 (14:05→19:30)
[2019-01-29 14:12] LABS: Appearance,BF Hazy; Color,BF Yellow
[2019-01-29 14:13] LABS: Nucleated Cells, Body Fluid 284 /uL; RBC, Body Fluid 375 /uL
[2019-01-29 14:22] LABS: Mononuclear WBC,Body Fluid 74 %; Polynuclear WBC,Body Fluid 24 %; Total Cells Counted,Body Fluid 100
--- NOTE | 2019-01-29 14:27 | XR ---
EXAMINATION TYPE: XR chest 1V portable DATE OF EXAM: 01/29/2019 COMPARISON: 01/27/2019 HISTORY: Status post thoracentesis TECHNIQUE: Single frontal view of the chest is obtained. FINDINGS: Small bilateral effusions and basilar consolidation are noted. No sizable pneumothorax. Ca rdiac device seen and there is atherosclerotic changes aorta. Diffuse osteopenia with arthropathy of the shoulders. Degenerative change of the spine. IMPRESSION: Interval reduction in amount pleural fluid on the right with no evidence of pneumothorax postthoracentesis
[2019-01-29] MEDS: CAPECITABINE PO SCH (15:24)
[2019-01-29] MEDS: CAPECITABINE 1500 MG PO SCH (15:24)
--- NOTE | 2019-01-29 15:27 | P.PN ---
Subjective Progress Note Date: 01/29/19 Principal diagnosis: Right-sided pleural effusion, recurrent, metastatic ovarian cancer post systemic chemotherapy Mrs. Doan is a 73-year-old female patient with known history of metastatic ovarian cancer, chronic right-sided pleural effusion, chronic atrial fibrillation and the patient is a permanent pacemaker in place and most recent echo cardiac exam showed a normal LV function with an ejection fraction of 50- 55% along with severe MR and moderate tricuspid regurgitation, came into the hospital because of worsening shortness of breath. ProBNP level was above 5000. Troponins were negative. Chest x-ray revealed volume loss along with some right lung opacity consistent with right-sided pleural effusion. This is noted on previous evaluation. The patient undergone 2 thoracenteses in the past the last one being in September 2018 and the prior one was in 2018. In both situations, the patient had a negative fluid cytology for malignancy. I was asked to consider this patient for thoracentesis. The patient has been taken Eliquis and long-term articulation regarding her atrial fibrillation. She is also taking Xeloda regarding her ovarian cancer. She has nausea and she has diarrhea and diminished appetite. She has had previous history of pulmonary embolism. On and 2018 patient seen in follow-up on medical surgical floor. She is on room air, with pulse ox of 97%. Patient is breathing easier today, feeling slightly better, no complaints of chest pain, no fever no palpitations. Chest ultrasound has been completed showing right pleural effusion pocket of 6.4 cm, and left pleural effusion pocket showing no fluid. Patient underwent right- sided thoracentesis, and following the procedure chest x-ray was done showing interval reduction in amount of pleural fluid on the right with no evidence of pneumothorax. Today's labs have been reviewed, showing white blood cell count of 5.4, hemoglobin of 9.7, platelet count is 150, electro lites were unremar kable with the exception of CO2 which is at 31, BUN is 45 and creatinine is 2.29. C. diff test was negative. Lasix has been discontinued per cardiology, related to worsening renal profile, and patient is on when necessary Imodium for diarrhea. Objective - Vital Signs Vital signs: Vital Signs Temp 97.5 F L 01/29/19 14:14 Pulse 61 01/29/19 14:14 Resp 16 01/29/19 14:14 BP 93/62 01/29/19 14:14 Pulse Ox 97 07/05/19 14:14 Intake & Output 01/28/19 01/29/19 01/29/19 18:59 06:59 18:59 Intake Total 354 540 420 Balance 354 540 420 Weight 80.286 kg 72.7 kg Intake: Oral 354 540 420 Other: Voiding Method Toilet # Voids 3 2 3 # Bowel Movements 2 - Exam GENERAL EXAM: Alert, pleasant, 73-year-old white female, room air pulse ox is 97% comfortable in no apparent distress. HEAD: Normocephalic/atraumatic. EYES: Normal reaction of pupils, equal size. Conjunctiva pink, sclera white. NOSE: Clear with pink turbinates. THROAT: No erythema or exudates. NECK: No masses, no JVD, no thyroid enlargement, no adenopathy. CHEST: No chest wall deformity. Symmetrical expansion. LUNGS: Equal air entry with no crackles, wheeze, rhonchi or dullness. CVS: Regular rate and rhythm, normal S1 and S2, no gallops, no murmurs, no rubs ABDOMEN: Soft, nontender. No hepatosplenomegaly, normal bowel sounds, no guarding or rigidity. EXTREMITIES: No clubbing, no edema, no cyanosis, 2+ pulses and upper and lower extremities. MUSCULOSKELETAL: Muscle strength and tone normal. SPINE: No scoliosis or deformity SKIN: No rashes CENTRAL NERVOUS SYSTEM: Alert and oriented -3. No focal deficits, tone is normal in all 4 extremities. PSYCHIATRIC: Alert and oriented -3. Appropriate affect. Intact judgment and insight. - Labs CBC & Chem 7: 01/29/19 07:08 01/29/19 07:08 Labs: Abnormal Lab Results - Last 24 Hours (Table) 01/29/19 01/29/19 Range/Units 07:08 07:08 RBC 2.41 L (3.80-5.40) m/uL Hgb 9.7 L (11.4-16.0) gm/dL Hct 29.3 L (34.0-46.0) % MCV 121.5 H (80.0-100.0) fL MCH 40.2 H (25.0-35.0) pg RDW 18.6 H (11.5-15.5) % Lymphocytes # 0.7 L (1.0-4.8) k/uL Macrocytosis Marked A Carbon Dioxide 31 H (22-30) mmol/L BUN 45 H (7-17) mg/dL Creatinine 2.29 H (0.52-1.04) mg/dL Glucose 111 H (74-99) mg/dL Assessment and Plan Plan: Assessment: 1 right-sided pleural effusion, recurrent and the patient has undergone 2 previous thoracenteses in the past with negative fluid cytology for malignancy. Nevertheless, this does not rule out the possibility of malignant right-sided pleural effusion. This problem has become ongoing and chronic. He has also added to this patient's shortness of breath. 2 metastatic ovarian cancer post-systemic chemotherapy with Doxil and carboplatin and she is currently on oral Xeloda 3 illness of breath secondary to above 4 chronic atrial fibrillation, with a preserved LV function and the patient has been on long-term and to coagulation with Eliquis 5 history of pacemaker insertion 6 previous history of pulmonary embolism maintained on long-term and to coagulation with Eliquis 7 hypertension 8 hyperlipidemia 9 severe mitral regurgitation 10 acute kidney injury, related to ATN Plan: Patient has undergone a right-sided thoracentesis with removal of 450 she is a pleural fluid, tolerated procedure well, she is breathing easier, postprocedure chest x-ray has been reviewed showing interval decrease in the amount of pleural effusion on the right, no evidence of pneumothorax. Lasix has been discontinued, diarrhea is improved, C. diff was negative. We'll continue to follow, will await the results of the pleural fluid analysis and cytology I performed a history & physical examination of the patient and discussed their management with my nurse practitioner, Betty Hernandez. I reviewed the nurse practitioner's note and agree with the documented findings and plan of care. Lung sounds are positive for decreased breath sounds on the right base. The findings and the impression was discussed with the patient. I attest to the documentation by the nurse practitioner. Time with Patient: Less than 30
[2019-01-29 18:52] LABS: Total Protein, Body Fluid 3400 mg/dL
--- NOTE | 2019-01-29 20:34 | PN ---
PROGRESS NOTE DATE OF SERVICE: 01/29/2019 This 73-year-old woman who was admitted with CHF, acute exacerbation, also had a right pleural effusion. Dr. Pink has evaluated the patient and performed a right-sided thoracocentesis with removal of 450 mL of pleural fluid. The patient is being closely monitored. No chest pain. No palpitations. No fever. On exam, alert and oriented x3. Pulse 61, blood pressure 93/62, respirations 16, temperature 97.3, pulse ox 97% on room air. HEENT: Conjunctivae normal. NECK: No jugular venous distention. CARDIOVASCULAR SYSTEM: S1, S2 muffled. RESPIRATORY SYSTEM: Breath sounds diminished at the bases. No rhonchi. No crackles. ABDOMEN: Soft, non-tender. LEGS: No edema. No swelling. NERVOUS SYSTEM: No focal deficit. LABS: WBC 5.4, hemoglobin 9.7, and creatinine is 2.29. ASSESSMENT: 1. Congestive heart failure, acute exacerbation, with acute on chronic diastolic dysfunction. 2. Right pleural effusion, recurrent, status post right thoracocentesis of 450 mL of fluid. 3. Previous history of pleural effusion with thoracocentesis with no evidence of malignancy. 4. History of metastatic ovarian malignancy, status post debulking surgery; was on chemotherapy. 5. Persistent atrial fibrillation. 6. Severe mitral regurgitation. 7. History of sinus pause and tachy-juan a syndrome. 8. Increased creatinine with chronic kidney disease, stage III. 9. Hypertension. 10.Hyperlipidemia. 11.Obesity with body mass index of 31.4. 12.History of pancytopenia. 13.History of pulmonary embolism. 14.History of diverticular disease. 15.History of cholecystectomy. 16.History of motion sickness. 17.FULL CODE. RECOMMENDATIONS AND DISCUSSION: I recommend to continue current medications, continue with the monitoring, symptomatic treatment. Otherwise I recommend following the patient closely. Continue with probably a lesser dose of diuretics and monitor creatinine closely. Monitor the rest of the labs. Guarded prognosis because of the multiple complex medical issues. Further recommendations to follow. MMODL / IJN: [id number] /
[2019-01-30] MEDS: DIGOXIN 125 MCG TAB PO SCH (07:26)
[2019-01-30] MEDS: MAGNESIUM OXIDE 400 MG TAB PO SCH ×3 (07:26→20:16)
[2019-01-30] MEDS: APIXABAN 5 MG TAB PO SCH ×2 (07:26→20:15)
[2019-01-30] MEDS: LOPERAMIDE 2 MG CAP PO PRN ×2 (07:29→15:31)
[2019-01-30] MEDS: FUROSEMIDE 10 MG/ML 4 ML VIAL IV SCH (07:30)
--- NOTE | 2019-01-30 08:03 | PCN ---
PROCEDURE NOTE PREOP DIAGNOSIS: Right side pleural effusion. POSTOP DIAGNOSIS: Right sided pleural effusion. Indication: Pleural effusion. A time-out was completed verifying correct patient, procedure, site, positioning , and implant (s) or special equipment if applicable. Ultrasound guidance was used and appropriate fluid pocket was identified and marked. Patient was positioned, prepped and draped in usual sterile fashion. Lidocaine was used to anesthetize the area. A Thoracentesis catheter was introduced into the pleural space and fluid was removed. Blood loss was none. A chest x-ray was ordered to evaluate for pneumothorax. Total Fluid Removed: 450 mL Color of Fluid: Dark turbid yellowish pleural effusion. Fluid was sent for appropriate laboratory tests. Patient tolerated the procedure well and there were no complications. No bedside complications or bleeding. Chest x-ray is to follow. MMODL / IJN: [id number] /
[2019-01-30] MEDS: IPRATROPIUM-ALBUTEROL 3 ML NEB INHALATION SCH ×3 (08:12→20:32)
[2019-01-30 08:42] LABS: Anisocytosis Slight; Basophils % (A) 1 %; Eosinophils # (A) 0.1 k/uL (0-0.7); Eosinophils % (A) 2 %; HCT 33.5 % (34.0-46.0); HGB 10.7 gm/dL (11.4-16.0); Hypochromasia Slight; Lymphocytes % (A) 20 %; MCH 39.2 pg (25.0-35.0); MCHC 32.1 g/dL (31.0-37.0); MCV 122.2 fL (80.0-100.0); Macrocytosis Marked; Mean Platelet Volume 7.9; Monocytes # (A) 0.4 k/uL (0-1.0); Monocytes % (A) 7 %; Neutrophils # (A) 3.5 k/uL (1.3-7.7); Neutrophils % (A) 69 %; Platelet Count 161 k/uL (150-450); Poikilocytosis Slight; RBC 2.74 m/uL (3.80-5.40); RDW 18.9 % (11.5-15.5); WBC 5.1 k/uL (3.8-10.6)
[2019-01-30 08:52] LABS: Calcium 8.8 mg/dL (8.4-10.2); Potassium 3.7 mmol/L (3.5-5.1)
[2019-01-30] MEDS: METOPROLOL TARTRATE 25 MG TAB PO SCH ×3 (11:11→23:22)
[2019-01-30] MEDS: VERAPAMIL 80 MG TAB PO SCH (11:13)
--- NOTE | 2019-01-30 13:29 | P.PN ---
Subjective Progress Note Date: 01/30/19 Principal diagnosis: Recurrent right-sided pleural effusion, metastatic ovarian cancer post-systemic chemotherapy Mrs. Doan is a 73-year-old female patient with known history of metastatic ovarian cancer, chronic right-sided pleural effusion, chronic atrial fibrillation and the patient is a permanent pacemaker in place and most recent echo cardiac exam showed a normal LV function with an ejection fraction of 50- 55% along with severe MR and moderate tricuspid regurgitation, came into the hospital because of worsening shortness of breath. ProBNP level was above 5000. Troponins were negative. Chest x-ray revealed volume loss along with some right lung opacity consistent with right-sided pleural effusion. This is noted on previous evaluation. The patient undergone 2 thoracenteses in the past the last one being in September 2018 and the prior one was in 2018. In both situations, the patient had a negative fluid cytology for malignancy. I was asked to consider this patient for thoracentesis. The patient has been taken Eliquis and long-term articulation regarding her atrial fibrillation. She is also taking Xeloda regarding her ovarian cancer. She has nausea and she has diarrhea and diminished appetite. She has had previous history of pulmonary embolism. The patient is seen today 01/30/2019 in follow-up on the regular medical floor. She is currently sitting up at the bedside. Awake and alert in no acute distress. Maintaining good O2 saturations in the 90s on room air. She's been afebrile. Hemodynamically stable. She is status post right-sided thoracentesis with 450 ML's of fluid removed. The protein 3.4. LDH 179. Cultures and pathology pending. White count 5.1. Hemoglobin 10.7. Creatinine 2.08. Objective - Vital Signs Vital signs: Vital Signs Temp 98.3 F 01/30/19 07:00 Pulse 65 01/30/19 07:00 Resp 14 01/30/19 07:00 BP 93/61 01/30/19 07:00 Pulse Ox 91 L 01/30/19 07:00 Intake & Output 01/29/19 01/30/19 01/30/19 18:59 06:59 18:59 Intake Total 600 240 180 Balance 600 240 180 Weight 72.4 kg Intake: Oral 600 240 180 Other: Voiding Method Toilet Toilet Toilet # Voids 3 2 - Exam GENERAL EXAM: Alert, pleasant 73-year-old female, comfortable in no apparent distress. On room air. HEAD: Normocephalic. EYES: Normal reaction of pupils, equal size. NOSE: Clear with pink turbinates. THROAT: No erythema or exudates. NECK: No masses, no JVD. CHEST: No chest wall deformity. LUNGS: Equal air entry with faint crackles in posterior bases. CVS: S1 and S2 normal with no audible murmur, regular rhythm. ABDOMEN: No hepatosplenomegaly, normal bowel sounds, no guarding or rigidity. SPINE: No scoliosis or deformity SKIN: No rashes CENTRAL NERVOUS SYSTEM: No focal deficits, tone is normal in all 4 extremities. EXTREMITIES: There is no peripheral edema. No clubbing, no cyanosis. P eripheral pulses are intact. - Labs CBC & Chem 7: 01/30/19 07:09 01/30/19 07:09 Labs: Abnormal Lab Results - Last 24 Hours (Table) 01/30/19 01/30/19 Range/Units 07:09 07:09 RBC 2.74 L (3.80-5.40) m/uL Hgb 10.7 L (11.4-16.0) gm/dL Hct 33.5 L (34.0-46.0) % MCV 122.2 H (80.0-100.0) fL MCH 39.2 H (25.0-35.0) pg RDW 18.9 H (11.5-15.5) % Macrocytosis Marked A Chloride 96 L (98-107) mmol/L Carbon Dioxide 31 H (22-30) mmol/L BUN 49 H (7-17) mg/dL Creatinine 2.08 H (0.52-1.04) mg/dL Microbiology - Last 24 Hours (Table) 01/29/19 13:00 Gram Stain - Preliminary Thoracic Fluid Body Fluid Culture - Preliminary Assessment and Plan Assessment: Assessment: 1 right-sided pleural effusion, recurrent and the patient has undergone 2 previous thoracenteses in the past with negative fluid cytology for malignancy. Nevertheless, this does not rule out the possibility of malignant right-sided pleural effusion. This problem has become ongoing and chronic. Status post repeat right-sided thoracentesis with 450 MLS removed on 01/29/2019, pathology pending 2 metastatic ovarian cancer post-systemic chemotherapy with Doxil and carboplatin and she is currently on oral Xeloda 3 illness of breath secondary to above 4 chronic atrial fibrillation, with a preserved LV function and the patient has been on long-term and to coagulation with Eliquis 5 history of pacemaker insertion 6 previous history of pulmonary embolism maintained on long-term and to coagulation with Eliquis 7 hypertension 8 hyperlipidemia 9 severe mitral regurgitation 10 acute kidney injury, related to ATN Plan: The patient was seen and evaluated by Dr. Pink. She is currently stable from the pulmonary standpoint. Pathology pending on the pleural fluid. No pulmonary complaints. Increase her activity as tolerated. Discharge once cleared by medicine. I, the cosigning physician, performed a history & physical examination of the patient. Lungs sounds with faint crackles in the posterior bases. Maintaining good O2 saturations in the 90s on room air. I discussed the assessment and plan of care with my nurse practitioner, Leonora Kline. I attest to the above note as dictated by her.
--- NOTE | 2019-01-30 14:14 | PN ---
PROGRESS NOTE Mrs. Doan is a 73-year-old female with a history of chronic persistent atrial fibrillation, history of hyperlipidemia, hypertension, metastatic ovarian cancer, who presented with symptoms of progressive dyspnea and was found to have evidence of pleural effusion. She underwent thoracentesis yesterday. She is feeling better today. Her breathing is better. She denies any symptoms of chest pain. She has a known history of mitral regurgitation and permanent pacemaker implantation. She has a preserved systolic function. She is on digoxin 0.125 mg daily, Lasix changed to oral 20 mg twice a day today, metoprolol tartrate 25 mg twice a day, verapamil 80 mg twice a day, spironolactone 25 mg daily in addition to Eliquis 5 mg twice a day. PHYSICAL EXAMINATION: VITAL SIGNS: Blood pressure running in the 90s with a heart rate in the 60s. LUNGS: Mild decrease in breath sounds. HEART: Irregularly irregular. S1, S2. No S3. No rub. ABDOMEN: Soft, nontender. EXTREMITIES: Plus 1 edema. LAB DATA: Potassium of 3.7, BUN and creatinine of 49 and 2.08, hemoglobin of 10.7. IMPRESSION: 1. Symptoms of progressive dyspnea with pleural effusion, status post thoracentesis. 2. Metastatic ovarian cancer. 3. Chronic persistent atrial fibrillation. 4. Permanent pacemaker implantation. 5. Hypertension. 6. Mitral regurgitation. RECOMMENDATIONS: I will decrease the dose of the verapamil and increase her beta ana luisa to maintain her heart rate. Continue the rest of her medical regimen. Depending on her progress, further recommendations will be made. MMODL / IJN: [id number] /
[2019-01-30] MEDS: CAPECITABINE 1500 MG PO SCH (15:46)
[2019-01-30] MEDS: CAPECITABINE PO SCH (15:47)
[2019-01-30] MEDS ORDERED: FUROSEMIDE 20 MG TAB PO SCH (16:00)
--- NOTE | 2019-01-30 19:08 | PN ---
PROGRESS NOTE DATE OF SERVICE: 01/30/2019. This 73-year-old woman was admitted with CHF exacerbation, right pleural effusion. Dr. Pink performed thoracocentesis about 450 mL. Patient being closely monitored. Patient also had metastatic ovarian carcinoma. There is no evidence of malignancy in the fluid so far. The patient's blood pressure is also running slightly low at 9156. Cardiology evaluating the patient. No chest pain. No palpitations. No fever. EXAM: Alert and oriented times three. Pulse is 59. Blood pressure 91/56, respiration 16, temperature 97.4, pulse ox 94% on room air. HEENT is conjunctivae normal. NECK: No jugular venous distention. CARDIOVASCULAR: S1, S2 muffled. Ejection systolic murmur present. RESPIRATION: Breath sounds diminished in the bases. A few scattered rhonchi and crackles. ABDOMEN is soft, nontender. NERVOUS SYSTEM: No focal deficits. LABS: WBC 5.2, hemoglobin 10.7, platelets are 161, MCV 102.2. Creatinine is 2.08. ASSESSMENT: 1. Congestive heart failure acute exacerbation with acute on chronic diastolic dysfunction. 2. Right pleural effusion, recurrent, status post right thoracocentesis 450 mL of fluid. 3. Previous history of pleural effusion, thoracocentesis, no evidence of malignancy. 4. History of metastatic ovarian malignancy, status post debulking surgery, was on chemotherapy. 5. Persistent atrial fibrillation. 6. Severe mitral regurgitation. 7. History of sinus pauses and tachy-juan a syndrome previously. 8. Increased creatinine with chronic kidney disease stage III. 9. Hypertension. 10.Hyperlipidemia. 11.Obesity with body mass index of 31.4. 12.History of pancytopenia. 13.History of pulmonary embolism. 14.History of diverticular disease. 15.History of cholecystectomy. 16.History of motion sickness. 17.FULL CODE. DISCUSSION AND RECOMMENDATIONS: Recommend to continue current medications, continue with monitoring and symptomatic treatment. At this time, I recommend to cut down the dose of Lasix and hold the antihypertensive medications for blood pressure running less than 100. Closely follow with Cardiology. Guarded prognosis. Further recommendations to follow. MMODL / IJN: [id number] /
[2019-01-30] MEDS: VERAPAMIL 40 MG TAB PO SCH (20:15)
[2019-01-31] MEDS: LOPERAMIDE 2 MG CAP PO PRN ×3 (05:02→22:18)
[2019-01-31 06:43] LABS: Anisocytosis Slight; Basophils % (A) 0 %; Eosinophils # (A) 0.1 k/uL (0-0.7); Eosinophils % (A) 2 %; HCT 30.9 % (34.0-46.0); HGB 10.1 gm/dL (11.4-16.0); Hypochromasia Slight; Lymphocytes # (A) 0.8 k/uL (1.0-4.8); Lymphocytes % (A) 19 %; MCH 39.8 pg (25.0-35.0); MCHC 32.6 g/dL (31.0-37.0); MCV 122.1 fL (80.0-100.0); Macrocytosis Marked; Mean Platelet Volume 7.9; Monocytes # (A) 0.3 k/uL (0-1.0); Monocytes % (A) 7 %; Neutrophils # (A) 2.8 k/uL (1.3-7.7); Neutrophils % (A) 68 %; Platelet Count 143 k/uL (150-450); Poikilocytosis Slight; RBC 2.53 m/uL (3.80-5.40); RDW 18.7 % (11.5-15.5); WBC 4.1 k/uL (3.8-10.6)
[2019-01-31 06:50] LABS: Calcium 8.5 mg/dL (8.4-10.2); Potassium 3.5 mmol/L (3.5-5.1)
[2019-01-31] MEDS: APIXABAN 5 MG TAB PO SCH ×2 (07:34→22:18)
[2019-01-31] MEDS: VERAPAMIL 40 MG TAB PO SCH (07:34)
[2019-01-31] MEDS: DIGOXIN 125 MCG TAB PO SCH (07:34)
[2019-01-31] MEDS: MAGNESIUM OXIDE 400 MG TAB PO SCH ×3 (07:34→22:18)
[2019-01-31] MEDS: FUROSEMIDE 20 MG TAB PO SCH (07:35)
[2019-01-31] MEDS: IPRATROPIUM-ALBUTEROL 3 ML NEB INHALATION SCH ×3 (08:01→19:36)
[2019-01-31] MEDS ORDERED: FUROSEMIDE 20 MG TAB PO SCH (09:00)
[2019-01-31] MEDS: METOPROLOL TARTRATE 25 MG TAB PO SCH ×3 (11:39→22:18)
--- NOTE | 2019-01-31 11:59 | PN ---
PROGRESS NOTE Mrs Doan is a 73-year-old female who has a history of chronic persistent atrial fibrillation, history of permanent pacemaker implantation, hypertension, hyperlipidemia, metastatic ovarian cancer who has underwent thoracentesis because of recurrent pleural effusion. She is feeling well this morning. Her breathing is stable. She denies any chest pain. No dizziness. No palpitation. She denies any nausea. Hemodynamically, her blood pressure remains on the lower side. Her heart rate is stable. She denies any dizziness or palpitation. She denies any nausea. She continues to be on verapamil 40 mg twice a day, metoprolol tartrate 25 mg 3 times a day, furosemide 20 mg daily, digoxin 0.125 mg daily, and Eliquis 5 mg twice a day. PHYSICAL EXAMINATION: Blood pressure running in the 90s with a heart rate in the 60. Lungs with mild decrease in breath sounds at the right base. Heart irregularly, irregular. S1, S2. No S3. No rub. ABDOMEN: Soft, nontender. EXTREMITIES no significant edema. LAB DATA: Lab data revealed a hemoglobin of 10.1, BUN and creatinine of 48 and 1.73, improved compared to yesterday. IMPRESSION: 1. Pleural effusion status post thoracentesis. The etiology of her recurrent pleural effusion is unclear. 2. Atrial fibrillation, with controlled ventricular response anticoagulated. 3. Status post permanent pacemaker implantation. 4. History of mitral regurgitation. 5. Metastatic ovarian cancer. 6. Hypertension. RECOMMENDATIONS: I will stop her verapamil at this time. Follow her blood pressure. Increase her level of activity and depending on her progress, further recommendations will be made. MMODL / IJN: [id number] /
--- NOTE | 2019-01-31 13:19 | P.PN ---
Subjective Progress Note Date: 01/31/19 Principal diagnosis: Right-sided pleural effusion, recurrent, metastatic ovarian cancer post systemic chemotherapy Mrs. Doan is a 73-year-old female patient with known history of metastatic ovarian cancer, chronic right-sided pleural effusion, chronic atrial fibrillation and the patient is a permanent pacemaker in place and most recent echo cardiac exam showed a normal LV function with an ejection fraction of 50- 55% along with severe MR and moderate tricuspid regurgitation, came into the hospital because of worsening shortness of breath. ProBNP level was above 5000. Troponins were negative. Chest x-ray revealed volume loss along with some right lung opacity consistent with right-sided pleural effusion. This is noted on previous evaluation. The patient undergone 2 thoracenteses in the past the last one being in September 2018 and the prior one was in 2018. In both situations, the patient had a negative fluid cytology for malignancy. I was asked to consider this patient for thoracentesis. The patient has been taken Eliquis and long-term articulation regarding her atrial fibrillation. She is also taking Xeloda regarding her ovarian cancer. She has nausea and she has diarrhea and diminished appetite. She has had previous history of pulmonary embolism. On and 2018 patient seen in follow-up on medical surgical floor. She is on room air, with pulse ox of 97%. Patient is breathing easier today, feeling slightly better, no complaints of chest pain, no fever no palpitations. Chest ultrasound has been completed showing right pleural effusion pocket of 6.4 cm, and left pleural effusion pocket showing no fluid. Patient underwent right- sided thoracentesis, and following the procedure chest x-ray was done showing interval reduction in amount of pleural fluid on the right with no evidence of pneumothorax. Today's labs have been reviewed, showing white blood cell count of 5.4, hemoglobin of 9.7, platelet count is 150, electro lites were unremar kable with the exception of CO2 which is at 31, BUN is 45 and creatinine is 2.29. C. diff test was negative. Lasix has been discontinued per cardiology, related to worsening renal profile, and patient is on when necessary Imodium for diarrhea. On 01/31/2019 she is seen in follow-up on medical surgical floor. She is sitting up on the edge of the bed, she is in no acute distress. Patient is st atus post right-sided thoracentesis, pleural fluid analysis revealed transudative fluid, pleural fluid cytology is still pending. Patient is breathing easier, she is on room air, pulse ox is 92%, no couplets or chest pain, no cough, congestion, lung sounds reveal diminished breath sounds over right lower lobe, clear on the left. Continues on oral diuretics, currently down to 20 mg daily, she is on nebulized bronchodilators, no acute events overnight, she is on oral anticoagulation for chronic A. fib with a controlled rate. Objective - Vital Signs Vital signs: Vital Signs Temp 97.5 F L 01/31/19 07:00 Pulse 68 01/31/19 07:00 Resp 16 01/31/19 07:35 BP 93/61 01/31/19 07:00 Pulse Ox 92 L 01/31/19 07:00 Intake & Output 01/30/19 01/31/19 01/31/19 18:59 06:59 18:59 Intake Total 660 361 Balance 660 361 Weight 72.7 kg Intake: Oral 660 361 Other: Voiding Method Toilet Toilet Toilet # Voids 2 1 - Exam GENERAL EXAM: Alert, pleasant, 73-year-old white female, room air pulse ox is 97% comfortable in no apparent distress. HEAD: Normocephalic/atraumatic. EYES: Normal reaction of pupils, equal size. Conjunctiva pink, sclera white. NOSE: Clear with pink turbinates. THROAT: No erythema or exudates. NECK: No masses, no JVD, no thyroid enlargement, no adenopathy. CHEST: No chest wall deformity. Symmetrical expansion. LUNGS: Equal air entry with no crackles, wheeze, rhonchi or dullness. CVS: Regular rate and rhythm, normal S1 and S2, no gallops, no murmurs, no rubs ABDOMEN: Soft, nontender. No hepatosplenomegaly, normal bowel sounds, no guarding or rigidity. EXTREMITIES: No clubbing, no edema, no cyanosis, 2+ pulses and upper and lower extremities. MUSCULOSKELETAL: Muscle strength and tone normal. SPINE: No scoliosis or deformity SKIN: No rashes CENTRAL NERVOUS SYSTEM: Alert and oriented -3. No focal deficits, tone is normal in all 4 extremities. PSYCHIATRIC: Alert and oriented -3. Appropriate affect. Intact judgment and insight. - Labs CBC & Chem 7: 01/31/19 05:32 01/31/19 05:32 Labs: Abnormal Lab Results - Last 24 Hours (Table) 01/31/19 01/31/19 Range/Units 05:32 05:32 RBC 2.53 L (3.80-5.40) m/uL Hgb 10.1 L (11.4-16.0) gm/dL Hct 30.9 L (34.0-46.0) % MCV 122.1 H (80.0-100.0) fL MCH 39.8 H (25.0-35.0) pg RDW 18.7 H (11.5-15.5) % Plt Count 143 L (150-450) k/uL Lymphocytes # 0.8 L (1.0-4.8) k/uL Macrocytosis Marked A Chloride 95 L (98-107) mmol/L Carbon Dioxide 35 H (22-30) mmol/L BUN 48 H (7-17) mg/dL Creatinine 1.73 H (0.52-1.04) mg/dL Glucose 100 H (74-99) mg/dL Microbiology - Last 24 Hours (Table) 01/29/19 13:00 Gram Stain - Preliminary Thoracic Fluid Body Fluid Culture - Preliminary Assessment and Plan Plan: Assessment: 1 right-sided pleural effusion, recurrent and the patient has undergone 2 previous thoracenteses in the past with negative fluid cytology for malignancy. Nevertheless, this does not rule out the possibility of malignant right-sided pleural effusion. This problem has become ongoing and chronic. He has also added to this patient's shortness of breath. Status post right-sided thoracentesis with removal of 450 she is a pleural fluid, tolerated procedure well, she is breathing easier, postprocedure chest x-ray has been reviewed showing interval decrease in the amount of pleural effusion on the right, no evidence of pneumothorax. Lasix has been discontinued, diarrhea is improved, C. diff was negative. We'll continue to follow, will await the results of the pleural fluid analysis and cytology 2 metastatic ovarian cancer post-systemic chemotherapy with Doxil and carboplatin and she is currently on oral Xeloda 3 illness of breath secondary to above 4 chronic atrial fibrillation, with a preserved LV function and the patient has been on long-term and to coagulation with Eliquis 5 history of pacemaker insertion 6 previous history of pulmonary embolism maintained on long-term and to coagulation with Eliquis 7 hypertension 8 hyperlipidemia 9 severe mitral regurgitation 10 acute kidney injury, related to ATN Plan: Pleural fluid analysis reveals transudative of fluid, cytology is pending, pleural fluid cultures showed no growth so far. Clinical patient is stable, no complaints of chest pain, no difficulty breathing. She is on room air, tolerating ambulation. A. fib was controlled, she is on oral anticoagulation, patient follows with Dr. Hartley in the pulmonary clinic, from pulmonary perspective she can be discharged, and follow-up with Dr. Hartley for results of the cytology. I performed a history & physical examination of the patient and discussed their management with my nurse practitioner, Betty Hernandez. I reviewed the nurse practitioner's note and agree with the documented findings and plan of care. Lung sounds are positive for decreased breath sounds on the right base. The findings and the impression was discussed with the patient. I attest to the documentation by the nurse practitioner. Time with Patient: Less than 30
[2019-01-31] MEDS: CAPECITABINE 1500 MG PO SCH (16:04)
[2019-01-31] MEDS: CAPECITABINE PO SCH (16:04)
--- NOTE | 2019-01-31 20:17 | PN ---
PROGRESS NOTE DATE OF SERVICE: 01/31/2019 This 73-year-old woman was admitted with multiple medical problems, also had a pleural tap for recurrent pleural effusion. The patient also had atrial fibrillation. The patient also had relative hypotension. Cardiology is following the patient closely. No chest pain. No palpitations. No fever. Activity is being increased. EXAM: Alert and oriented x3. Pulse 57, blood pressure 92/49, respirations 16, temperature 97.9, pulse ox 98% on room air. HEENT: Conjunctivae normal. NECK: No JVD. CARDIOVASCULAR: S1, S2 muffled. RESPIRATION: Breath sounds diminished in the bases. Scattered rhonchi. ABDOMEN soft. NERVOUS SYSTEM: No focal deficits. LABS: WBC 4.2, hemoglobin 10.1, creatinine is 1.73. ASSESSMENT: 1. Congestive heart failure exacerbation with acute on chronic diastolic dysfunction. 2. Right pleural effusion, recurrent, status post thoracocentesis about 450 mL of fluid. 3. Previous history of pleural effusion, thoracocentesis, no evidence of malignancy. 4. History of metastatic ovarian malignancy status post debulking surgery was on chemotherapy. 5. Persistent atrial fibrillation. 6. History of severe mitral regurgitation. 7. History of sinus pauses and tachybrady syndrome previously. 8. Increased creatinine with chronic kidney stage III. 9. Hypertension. 10.Hyperlipidemia. 11.Obesity with body mass index of 31.4. 12.History of pancytopenia. 13.History of pulmonary embolism. 14.History of diverticular disease. 15.History of cholecystectomy. 16.History of motion sickness. 17.FULL CODE. RECOMMENDATIONS AND DISCUSSION: I recommend to continue current medications, continue with monitoring and symptomatic treatment. Otherwise, at this time, I recommend monitor the blood pressure closely. Adjust medications further per Cardiology. Increase ambulation. Further recommendations to follow. MMODL / IJN: [id number] /
[2019-02-01] MEDS: IPRATROPIUM-ALBUTEROL 3 ML NEB INHALATION SCH ×3 (08:23→20:10)
[2019-02-01 09:24] LABS: Anisocytosis Slight; Basophils % (A) 0 %; Eosinophils # (A) 0.1 k/uL (0-0.7); Eosinophils % (A) 2 %; HCT 31.9 % (34.0-46.0); HGB 10.5 gm/dL (11.4-16.0); Hypochromasia Slight; Lymphocytes # (A) 0.7 k/uL (1.0-4.8); Lymphocytes % (A) 19 %; MCH 40.3 pg (25.0-35.0); MCV 122.2 fL (80.0-100.0); Macrocytosis Marked; Monocytes # (A) 0.3 k/uL (0-1.0); Monocytes % (A) 8 %; Neutrophils # (A) 2.6 k/uL (1.3-7.7); Neutrophils % (A) 68 %; Platelet Count 137 k/uL (150-450); Poikilocytosis Slight; RBC 2.61 m/uL (3.80-5.40); RDW 18.8 % (11.5-15.5); WBC 3.9 k/uL (3.8-10.6)
[2019-02-01 09:43] LABS: Calcium 8.8 mg/dL (8.4-10.2); Potassium 3.9 mmol/L (3.5-5.1)
[2019-02-01] MEDS: MAGNESIUM OXIDE 400 MG TAB PO SCH ×3 (10:11→20:52)
[2019-02-01] MEDS: FUROSEMIDE 20 MG TAB PO SCH (10:11)
[2019-02-01] MEDS: METOPROLOL TARTRATE 25 MG TAB PO SCH ×3 (10:11→20:52)
[2019-02-01] MEDS: DIGOXIN 125 MCG TAB PO SCH (10:11)
[2019-02-01] MEDS: APIXABAN 5 MG TAB PO SCH ×2 (10:11→20:53)
[2019-02-01 10:57] LABS: Polychromasia Present
[2019-02-01] MEDS: SPIRONOLACTONE 25 MG TAB PO SCH (13:31)
[2019-02-01] MEDS: LOPERAMIDE 2 MG CAP PO PRN ×2 (13:35→21:00)
[2019-02-01] MEDS: CAPECITABINE PO SCH (17:51)
[2019-02-01] MEDS: CAPECITABINE 1500 MG PO SCH (17:51)
--- NOTE | 2019-02-01 20:29 | P.PN ---
Progress Note - Text Progress Note Date: 02/01/19 Presenting complaint: Short of breath Interval history: This pleasant lady with metastatic ovarian cancer, status post chemotherapy. On Xeloda. Admitted with recurrent right pleural effusion. Short of breath. Status post right-sided thoracentesis, 450 mL were removed. Also has underlying chronic A. fib. Today-sitting up. Feels better. Breathing is improved. Blood pressures running low. Appetite okay. Did have a bowel movement. Verapamil had been held because of low blood pressure. Review of systems: Was done for constitutional, cardiovascular, GI, pulmonary. relevant finding as above Current medications are reviewed that include: DuoNeb, eliquis, by mouth Lasix, Xeloda, Lopressor On examination: VITAL SIGNS: 97.9, 55, 18, 106/57, 96% room air GENERAL APPEARANCE: Sitting up in bed not in distress. HEENT: Normal external appearance of nose and ear. Oral cavity normal EYES: Pupils equal. Conjunctiva normal. NECK: JVD not raised. Mass not palpable. RESPIRATORY: Respiratory effort normal. Decreased breath sounds on the right side posteriorly. CARDIOVASCULAR: Irregular heart sounds. No edema. ABDOMEN: Soft. Liver and spleen not palpable. No tenderness. No mass palpable. PSYCHIATRY: Alert and oriented x3. Mood and affect normal. Investigations, reviewed in the clinical context: Potassium 3.9, white count 3.9, hemoglobin 10.5 Blood urea nitrogen 48, creatinine 1.19 Assessment: -Recurrent right pleural effusion, symptomatic in a patient with metastatic ovarian cancer, cytology being negative but strongly suspicious for the same -Persistent atrial flutter fibrillation, with permanent pacemaker -Chronic congestive heart failure from diastolic dysfunction EF 50-55% -Essential hypertension -Hyperlipidemia -Metastatic ovarian cancer status post debulking surgery and chemotherap Plan: Patient blood pressure was running on the lower side. Verapamil had been held. Patient is on Lopressor. Did discuss with the patient. Plan the patient ablate today. See how she does. Depending on the blood pressure and the heart rate verapamil could be resumed tomorrow. Hoping she can then be discharged. Questions were answered.
[2019-02-02] MEDS: LOPERAMIDE 2 MG CAP PO PRN (07:23)
[2019-02-02 07:28] VITALS: RESP 16; TEMP 97.5
[2019-02-02] MEDS: APIXABAN 5 MG TAB PO SCH (08:23)
[2019-02-02] MEDS: DIGOXIN 125 MCG TAB PO SCH ×2 (08:25→09:05)
[2019-02-02] MEDS: MAGNESIUM OXIDE 400 MG TAB PO SCH (08:26)
[2019-02-02] MEDS: METOPROLOL TARTRATE 25 MG TAB PO SCH (08:28)
[2019-02-02 09:01] LABS: Anisocytosis Slight; Basophils % (A) 1 %; Eosinophils # (A) 0.1 k/uL (0-0.7); Eosinophils % (A) 3 %; HCT 33.6 % (34.0-46.0); HGB 10.6 gm/dL (11.4-16.0); Hypochromasia Slight; Lymphocytes # (A) 0.7 k/uL (1.0-4.8); Lymphocytes % (A) 18 %; MCH 38.8 pg (25.0-35.0); MCHC 31.6 g/dL (31.0-37.0); Macrocytosis Marked; Mean Platelet Volume 8.1; Monocytes # (A) 0.3 k/uL (0-1.0); Monocytes % (A) 9 %; Neutrophils # (A) 2.5 k/uL (1.3-7.7); Neutrophils % (A) 67 %; Platelet Count 139 k/uL (150-450); Poikilocytosis Slight; RBC 2.73 m/uL (3.80-5.40); RDW 18.6 % (11.5-15.5); WBC 3.7 k/uL (3.8-10.6)
[2019-02-02] MEDS: SPIRONOLACTONE 25 MG TAB PO SCH (09:01)
[2019-02-02 09:12] LABS: Calcium 8.6 mg/dL (8.4-10.2); Potassium 3.7 mmol/L (3.5-5.1)
[2019-02-02] MEDS: IPRATROPIUM-ALBUTEROL 3 ML NEB INHALATION SCH ×2 (09:30→12:11)
[2019-02-02 11:21] LABS: Polychromasia Present
[2019-02-02] MEDS ORDERED: DIGOXIN 125 MCG TAB PO ONE (11:28)
[2019-02-02 11:33] VITALS: BP 83/51; PULSE 57
--- NOTE | 2019-02-02 12:08 | P.PN ---
Subjective Progress Note Date: 02/02/19 This is 73-year-old female with metastatic ovarian cancer and also chronic atrial fibrillation was admitted to the hospital with pleural effusion. Patient had pleural tap yesterday. Patient is feeling much better today. Her heart rate is in the 50s. Patient has underlying pacemaker. Her blood pressure is also running low. Patient is off verapamil. We'll continue with Lanoxin. Lungs appeared to be clear. Patient is not having any chest pain or shortness of breath. Increase activity as tolerated Objective - Vital Signs Vital signs: Vital Signs Temp 97.5 F L 02/02/19 07:25 Pulse 57 L 02/02/19 11:32 Resp 16 02/02/19 11:24 BP 83/51 02/02/19 11:32 Pulse Ox 92 L 02/02/19 07:25 Intake & Output 02/01/19 02/02/19 02/02/19 18:59 06:59 18:59 Intake Total 660 Balance 660 Weight 73.5 kg Intake: Oral 660 Other: Voiding Method Toilet Toilet # Voids 2 1 - Exam GENERAL EXAM: Patient is alert and oriented and doesn't appear to be in any acute distress HEENT: Normocephalic. Normal reaction of pupils, equal size, normal range of extraocular motion. No erythema or exudates in the throat. NECK: No masses, no nuchal rigidity. CHEST: No chest wall deformity. LUNGS: Equal air entry with no crackles or wheeze. HEART: S1 and S2 normal with no audible mumurs or gallops. Regular rhythm, femorals equal on both sides.. ABDOMEN: No hepatosplenomegaly, normal bowel sounds, no guarding or rigidity. SKIN: No rashes CENTRAL NERVOUS SYSTEM: No focal deficits. EXTREMITIES: No cyanosis, clubbing or edema. - Labs CBC & Chem 7: 02/02/19 08:07 02/02/19 08:07 Labs: Abnormal Lab Results - Last 24 Hours (Table) 02/02/19 02/02/19 Range/Units 08:07 08:07 WBC 3.7 L (3.8-10.6) k/uL RBC 2.73 L (3.80-5.40) m/uL Hgb 10.6 L (11.4-16.0) gm/dL Hct 33.6 L (34.0-46.0) % MCV 123.0 H (80.0-100.0) fL MCH 38.8 H (25.0-35.0) pg RDW 18.6 H (11.5-15.5) % Plt Count 139 L (150-450) k/uL Lymphocytes # 0.7 L (1.0-4.8) k/uL Macrocytosis Marked A Chloride 94 L (98-107) mmol/L Carbon Dioxide 37 H (22-30) mmol/L BUN 45 H (7-17) mg/dL Creatinine 1.19 H (0.52-1.04) mg/dL Glucose 130 H (74-99) mg/dL Microbiology - Last 24 Hours (Table) 01/29/19 13:00 Gram Stain - Final Thoracic Fluid Body Fluid Culture - Final Assessment and Plan (1) Congestive heart failure Current Visit: Yes Status: Acute Code(s): I50.9 - HEART FAILURE, UNSPECIFIED SNOMED Code(s): 14265012 (2) Recurrent right pleural effusion Current Visit: Yes Status: Acute Code(s): J90 - PLEURAL EFFUSION, NOT ELSEWHERE CLASSIFIED SNOMED Code(s): 98560771 (3) Atrial fibrillation with RVR Current Visit: No Status: Acute Code(s): I48.91 - UNSPECIFIED ATRIAL FIBRILLATION SNOMED Code(s): 598985735051110 (4) Bradycardia Current Visit: No Status: Acute Code(s): R00.1 - BRADYCARDIA, UNSPECIFIED SNOMED Code(s): 71942717 (5) Hypotension Current Visit: No Status: Acute Priority: High Code(s): I95.9 - HYPOTENSION, UNSPECIFIED SNOMED Code(s): 21278373 Plan: Patient's verapamil was held. Lopressor was also being held. Heart rate is in the 50s. It patient is clinically stable. We'll continue monitoring her blood pressure. Possible discharge name
[2019-02-02] MEDS ORDERED: FUROSEMIDE 20 MG TAB PO SCH (13:00)
== END 2019-02-02 15:00 | disposition home or self-care (01) | DRG 291 ==
LOC: EC 12:38 → 4SSUR 16:26
PROVIDERS: ADMIT Hospitalist; ATTEND Hospitalist
PROC: 0W993ZX Drainage of Right Pleural Cavity, Percutaneous Approach, Diagnostic (ICD-10-PCS; principal; 2019-01-29)
DX: I13.0 Hypertensive heart and chronic kidney disease with heart failure and stage 1 through stage 4 chronic kidney disease, or unspecified chronic kidney disease (principal); I50.33 Acute on chronic diastolic (congestive) heart failure; N17.0 Acute kidney failure with tubular necrosis; I48.1 Persistent atrial fibrillation; I48.92 Unspecified atrial flutter; C56.9 Malignant neoplasm of unspecified ovary; C79.9 Secondary malignant neoplasm of unspecified site; J90 Pleural effusion, not elsewhere classified; I08.1 Rheumatic disorders of both mitral and tricuspid valves; E78.5 Hyperlipidemia, unspecified; E66.9 Obesity, unspecified; N18.3 Chronic kidney disease, stage 3 (moderate); Z68.31 Body mass index [BMI] 31.0-31.9, adult; Z79.01 Long term (current) use of anticoagulants; Z79.899 Other long term (current) drug therapy; Z80.1 Family history of malignant neoplasm of trachea, bronchus and lung; Z82.49 Family history of ischemic heart disease and other diseases of the circulatory system; Z83.3 Family history of diabetes mellitus; Z86.711 Personal history of pulmonary embolism; Z90.49 Acquired absence of other specified parts of digestive tract; Z90.710 Acquired absence of both cervix and uterus; Z95.0 Presence of cardiac pacemaker; Z88.5 Allergy status to narcotic agent; K57.90 Diverticulosis of intestine, part unspecified, without perforation or abscess without bleeding; R19.7 Diarrhea, unspecified; R11.0 Nausea
CPT/HCPCS: 36415; 71045; 71046; 76604; 80048; 80053; 82550; 82945; 83615; 83735; 83880; 84157; 84484; 85025; 85610; 85730; 87070; 87205; 87324; 88108; 88305; 88341; 88342; 89050; 93005; 94760; 96374; 96375; 99285

== ENCOUNTER → 2019-04-12 | Outpatient (CLI) | payer MEDICARE ==
--- NOTE | 2019-04-12 11:21 | CT ---
EXAMINATION TYPE: CT ChestAbdPelvis w con DATE OF EXAM: 04/12/2019 COMPARISON: CT chest abdomen and pelvis August 12, 2018 and several older CTs HISTORY: ovarian CA CT DLP: 742.9 mGycm. Automated Exposure Control for Dose Reduction was Utilized. CONTRAST: CT scan of the thorax, abdomen and pelvis is performed with IV Contrast, patient injected with 100 mL of Isovue 300. FINDINGS: LUNGS: There is moderate-sized right pleural fluid collection or effusion which is increased in size from prior. There is central and basilar scarring and/or atelectasis. No suspicious new nodules or ma sses. Left lung remains clear. MEDIASTINUM: There are no greater than 1 cm hilar or mediastinal lymph nodes. New tiny pericardial ef fusion is seen. Heart size is mildly enlarged. There is dual lead pacemaker now identified. LIVER/GB: New suspicious peripheral hypodense lesion posterior right hepatic lobe image 51 measuring 1.5 cm. There is increasing perihepatic ascites along superior and right lateral margin. Stable subce ntimeter low dense lesion posterior right hepatic lobe axial image 44. New hyperdensity of the left hepatic lobe. PANCREAS: No significant abnormality is seen. SPLEEN: Heterogeneity of spleen with enlarging heterogeneous hypodense 2.2 cm lesion anteriorly on im age 51. Some new adjacent lateral ascites is present. ADRENALS: Right adrenal mass measures 2.1 x 1.5 cm not significantly changed from prior studies. KIDNEYS: Symmetric cortical medullary uptake and excretion without hydronephrosis. Bladder poorly dis tended and less suboptimally evaluated. BOWEL: Oral contrast reaches the level of the hepatic flexure. There is no suspicious small or large bowel dilatation. Surgical sutures sigmoid rectal colon axial image 97 are redemonstrated. No suspici ous bowel dilatation. There is fecal prominence in the rectum now noted. GENITAL ORGANS: Uterus is surgically absent. LYMPH NODES: There is no suspicious soft tissue density probable confluent adenopathy along the seros al surface of the gastric antrum and invading delores hepatis axial image 56. There is no retroperitone al adenopathy for reference aortocaval lymph node or low dense lesion measuring 2.2 x 1.5 cm axial im age 66. For reference there is anterior periaortic lymph node and left para-aortic adenopathy axial i mage 77 before aortic bifurcation, anterior lymph node measures 2.3 x 1.3 cm. There are new left carlos ac chain lymph nodes for reference measuring 3.3 x 1.6 cm axial image 94. OSSEOUS STRUCTURES: Moderate to severe narrowing and spurring of both hip joints. . Multilevel disc s pace narrowing in the lumbar spine. OTHER: No significant additional abnormality is seen. IMPRESSION: Interval neoplastic progression with increasing ascites, new suspicious posterior right c apsular liver lesion. Enlarging splenic lesion. Developing adenopathy and recurrent peritoneal diseas e suspected. Enlarging moderate-sized right pleural effusion is noted.
== END | disposition home or self-care (01) ==
LOC: RADCTMAIN 07:50
PROVIDERS: ATTEND Internal Medicine Hematology & Oncology
DX: J90 Pleural effusion, not elsewhere classified (principal); D73.89 Other diseases of spleen; R18.8 Other ascites; C56.9 Malignant neoplasm of unspecified ovary
CPT/HCPCS: 82565; 84520; 71260; 74177; 36415; Q9967

== ENCOUNTER 2019-05-18 08:36 | Inpatient (IN) | payer MEDICARE ==
[2019-05-18] MEDS ORDERED: SODIUM CHLORIDE 0.9% 1,000 ML IV STA (09:35)
[2019-05-18] MEDS ORDERED: ONDANSETRON 4 MG/2 ML VIAL IVP STA (09:35)
[2019-05-18] MEDS ORDERED: DICYCLOMINE 10 MG/ML 2 ML AMP IM STA (09:36)
[2019-05-18] MEDS ORDERED: FAMOTIDINE 20 MG/2 ML VIAL IV STA (09:36)
--- NOTE | 2019-05-18 09:38 | ED ---
General Adult HPI - General Chief complaint: Weakness Stated complaint: WEAKNESS, VOMITING X 3 WEEKS, DIARRHEA Time Seen by Provider: 05/18/19 08:56 Source: patient, family, RN notes reviewed Mode of arrival: wheelchair Limitations: physical limitation - History of Present Illness Initial comments: Patient is a pleasant 73-year-old female presenting to the emergency department with concerns for dehydration. Patient has known ovarian cancer, last treatment of November. 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 Patient has been having diarrhea and vomiting and decreased oral intake over the past 2-3 weeks. Patient is having diarrhea up to 3-4 times daily. Patient is vomiting one to 3 times daily. Patient has mild discomfort in her abdomen at times. No fever. No confusion or weakness. - Related Data Home Medications Medication Instructions Recorded Confirmed Apixaban [Eliquis] 2.5 mg PO BID 10/09/18 05/18/19 Digoxin [Lanoxin] 125 mcg PO DAILY 01/27/19 05/18/19 Spironolactone 25 mg PO DAILY 01/27/19 05/18/19 Dronabinol [Marinol] 5 mg PO HS PRN 05/18/19 05/18/19 Esomeprazole Magnesium [NexIUM 20 mg PO DAILY 05/18/19 05/18/19 24Hr] Furosemide [Lasix] 20 mg PO DAILY PRN 05/18/19 05/18/19 HYDROcodone/APAP 10-325MG [[place] 1 tab PO QID PRN 05/18/19 05/18/19 10-325] Metoprolol Tartrate [Lopressor] 25 mg PO BID 05/18/19 05/18/19 Prochlorperazine [Compazine] 10 mg PO Q6H PRN 05/18/19 05/18/19 Previous Rx's Medication Instructions Recorded Magnesium Oxide [Mag-Ox] 250 mg PO TID #1 tablet 08/05/18 Allergies Allergy/AdvReac Type Severity Reaction Status Date / Time hydromorphone [From Dilaudid] AdvReac Hallucinati Verified 05/18/19 10:34 ons Review of Systems ROS Statement: Those systems with pertinent positive or pertinent negative responses have been documented in the HPI. ROS Other: All systems not noted in ROS Statement are negative. Constitutional: Denies: fever Eyes: Denies: eye pain ENT: Denies: ear pain Respiratory: Denies: dyspnea Cardiovascular: Denies: chest pain Endocrine: Reports: fatigue Gastrointestinal: Reports: as per HPI, nausea, vomiting, diarrhea Genitourinary: Denies: dysuria Musculoskeletal: Denies: back pain Skin: Denies: rash Neurological: Denies: weakness Past Medical History Past Medical History: Atrial Fibrillation, Atrial Flutter, Cancer, Hyperlipidemia, Hypertension, Pulmonary Embolus (PE) Additional Past Medical History / Comment(s): Metastatic ovarian cancer with hysterectomy/debulking and chemotherapy last dose 07/14/18, pancytopenia d/t chemo, afib/flutter with RVR in past, 2 pulmonary embolisms that pt believes were on the R side, 04/10/18 pt had acute CHF with pleural effusion and R sided thoracentesis, diverticular disease. History of atrial fibrillation and the patient is a permanent pacemaker in place for now. History of Any Multi-Drug Resistant Organisms: None Reported Past Surgical History: Appendectomy, Cholecystectomy, Hysterectomy, Pacemaker, Tonsillectomy, Tubal Ligation Additional Past Surgical History / Comment(s): Debulking surgery approximately 2015, cervical polypectomies, colonoscopies. Pacemaker - 09-02-2018 Past Anesthesia/Blood Transfusion Reactions: Motion Sickness, Postoperative Nausea & Vomiting (PONV) Additional Past Anesthesia/Blood Transfusion Reaction / Comment(s): Pt believes she recieved blood with her debulking surgery. Type of Cardiac Device: Permanent Pacemaker Device Placement Date:: 09-02-2018 Past Psychological History: No Psychological Hx Reported Smoking Status: Never smoker Past Alcohol Use History: Rare Past Drug Use History: None Reported - Past Family History Mother Family Medical History: AFIB, Chest Pain / Angina, Diabetes Mellitus, Hypertension Additional Family Medical History / Comment(s): Mother is 92 yrs old. Father Family Medical History: Cancer Additional Family Medical History / Comment(s): Father of lung cancer at the age of 78yrs. General Exam Limitations: physical limitation General appearance: alert, in no apparent distress Head exam: Present: normocephalic Eye exam: Present: other (pale conjunctiva) ENT exam: Present: mucous membranes dry Neck exam: Present: normal inspection Respiratory exam: Present: normal lung sounds bilaterally Cardiovascular Exam: Present: irregular rhythm GI/Abdominal exam: Present: soft. Absent: distended, tenderness Extremities exam: Present: normal inspection Neurological exam: Present: alert Psychiatric exam: Present: normal affect, normal mood Skin exam: Present: normal color Course Vital Signs 05/18/19 05/18/19 08:40 10:43 Temperature 97.4 F L 97.6 F Pulse Rate 65 82 Respiratory 17 16 Rate Blood Pressure 98/87 104/65 O2 Sat by Pulse 97 98 Oximetry EKG Findings - EKG Comments: EKG Findings:: A. fib with some paced complexes. Rate 67. QRS 126. QT 406. QTc 429. Normal axis. Right bundle branch block. Diffuse T-wave inversion. Medical Decision Making - Medical Decision Making Patient evaluated and resting comfortably in bed. Patient and family updated on results and plan Idris was discussed in detail with Dr. Romero, who will admit covering for Dr. Roberts. - Lab Data Result diagrams: 05/18/19 10:59 05/18/19 10:59 Lab Results 05/18/19 05/18/19 Range/Units 10:59 10:59 WBC 5.8 (3.8-10.6) k/uL RBC 4.12 (3.80-5.40) m/uL Hgb 13.3 (11.4-16.0) gm/dL Hct 41.9 (34.0-46.0) % MCV 101.8 H (80.0-100.0) fL MCH 32.2 (25.0-35.0) pg MCHC 31.7 (31.0-37.0) g/dL RDW 15.2 (11.5-15.5) % Plt Count 317 (150-450) k/uL Neutrophils % 84 % Lymphocytes % 9 % Monocytes % 4 % Eosinophils % 1 % Basophils % 1 % Neutrophils # 4.9 (1.3-7.7) k/uL Lymphocytes # 0.5 L (1.0-4.8) k/uL Monocytes # 0.2 (0-1.0) k/uL Eosinophils # 0.0 (0-0.7) k/uL Basophils # 0.1 (0-0.2) k/uL Hypochromasia Moderate Macrocytosis Slight Sodium 135 L (137-145) mmol/L Potassium 4.0 (3.5-5.1) mmol/L Chloride 93 L (98-107) mmol/L Carbon Dioxide 27 (22-30) mmol/L Anion Gap 15 mmol/L BUN 42 H (7-17) mg/dL Creatinine 1.15 H (0.52-1.04) mg/dL Est GFR (CKD-EPI)AfAm 55 (>60 ml/min/1.73 sqM) Est GFR (CKD-EPI)NonAf 48 (>60 ml/min/1.73 sqM) Glucose 108 H (74-99) mg/dL Calcium 8.8 (8.4-10.2) mg/dL Total Bilirubin 0.7 (0.2-1.3) mg/dL AST 33 (14-36) U/L ALT 26 (9-52) U/L Alkaline Phosphatase 117 (38-126) U/L Total Protein 6.3 (6.3-8.2) g/dL Albumin 3.3 L (3.5-5.0) g/dL Digoxin 2.1 ng/mL Disposition Clinical Impression: Dehydration Disposition: ADMITTED IP TO THIS HOSP Is patient prescribed a controlled substance at d/c from ED?: No Referrals: Sergey Roberts DO [Primary Care Provider] - 1-2 days Decision Time: 12:34
[2019-05-18 11:20] LABS: Basophils # (A) 0.1 k/uL (0-0.2); Basophils % (A) 1 %; Eosinophils % (A) 1 %; HCT 41.9 % (34.0-46.0); HGB 13.3 gm/dL (11.4-16.0); Hypochromasia Moderate; Lymphocytes # (A) 0.5 k/uL (1.0-4.8); Lymphocytes % (A) 9 %; MCH 32.2 pg (25.0-35.0); MCHC 31.7 g/dL (31.0-37.0); MCV 101.8 fL (80.0-100.0); Macrocytosis Slight; Monocytes # (A) 0.2 k/uL (0-1.0); Monocytes % (A) 4 %; Neutrophils # (A) 4.9 k/uL (1.3-7.7); Neutrophils % (A) 84 %; Platelet Count 317 k/uL (150-450); RBC 4.12 m/uL (3.80-5.40); RDW 15.2 % (11.5-15.5); WBC 5.8 k/uL (3.8-10.6)
[2019-05-18 11:30] LABS: Albumin 3.3 g/dL (3.5-5.0); Calcium 8.8 mg/dL (8.4-10.2); Total Bilirubin 0.7 mg/dL (0.2-1.3); Total Protein 6.3 g/dL (6.3-8.2)
[2019-05-18 11:54] LABS: Digoxin 2.1 ng/mL
[2019-05-18] MEDS ORDERED: NALOXONE 0.4 MG/ML 1 ML VIAL IV PRN (12:34)
[2019-05-18] MEDS ORDERED: ONDANSETRON 4 MG/2 ML VIAL IVP PRN (12:34)
[2019-05-18] MEDS: SODIUM CHLORIDE 0.9% 1,000 ML IV SCH (14:04)
[2019-05-18] MEDS ORDERED: FUROSEMIDE 20 MG TAB PO PRN (19:38)
[2019-05-18] MEDS: APIXABAN 2.5 MG TABLET PO SCH (20:54)
[2019-05-18] MEDS: METOPROLOL TARTRATE 25 MG TAB PO SCH (20:55)
[2019-05-18 22:01] LABS: Appearance,Urine Cloudy (Clear); Bacteria,Urine Rare /hpf; Bilirubin,Urine 1+ (Negative); Blood,Urine Negative (Negative); Color,Urine Yellow; Glucose,Urine (UA) Negative (Negative); Hyaline Casts,Urine 688 /lpf (0-2); Ketones,Urine 1+ (Negative); Leukocyte Esterase,Urine Small (Negative); Mucus,Urine Many /hpf; Nitrite,Urine Negative (Negative); PH, Urine 5.5 (5.0-8.0); Protein,Urine 1+ (Negative); RBC,Urine 1 /hpf (0-5); Specific Gravity,Urine 1.029 (1.001-1.035); Squamous Epithelial Cell,Urine 6 /hpf (0-4); WBC,Urine 14 /hpf (0-5)
[2019-05-19] MEDS: SODIUM CHLORIDE 0.9% 1,000 ML IV SCH ×2 (05:05→16:02)
[2019-05-19] MEDS: APIXABAN 2.5 MG TABLET PO SCH ×2 (08:25→21:26)
[2019-05-19] MEDS: METOPROLOL TARTRATE 25 MG TAB PO SCH ×2 (08:25→21:26)
[2019-05-19] MEDS ORDERED: NON FORMULARY DRUG (Esomeprazole Magnesium [Nexium 24hr] 20 MG) PO SCH (09:00)
[2019-05-19] MEDS ORDERED: SPIRONOLACTONE 25 MG TAB PO SCH (09:00)
[2019-05-19] MEDS ORDERED: DIGOXIN 125 MCG TAB PO SCH (09:00)
[2019-05-19] MEDS ORDERED: PANTOPRAZOLE 40 MG/10 ML VIAL IV SCH (09:00)
--- NOTE | 2019-05-19 12:41 | P.CONS ---
History of Present Illness - Reason for Consult Consult date: 05/19/19 Ovarian cancer,N/V/SOB, weakness - History of Present Illness This is a 73 yr old WF, pt of Dr Navarro, who presented with abdominal pain and distension for about a month duration. U/S done on 05/10/2016 revealed evidence of ascites. Diagnostic paracentesis done on 05/24/2016,cytology revealed metastatic carcinoma consistent with non mucinous ovarian primary. On 06/03/2016,CA125 was 499. On 06/07/2016,CT scan of chest/abdomen/pelvis revealed ascites,omental caking and small bilateral pleural effusion.BRCA testing were negative. She underwent optimal debulking surgery on 06/18/2016,R1 resection,her surgery was complicated by PE.Pathology revealed high grade serous adenocarcinoma,positive peritoneal washing and peritoneal mestastasis over 2 cm beyond pelvis and positive mesenteric nodes. She started carboplatin/taxol on 08/05/2016. She completed 6 cycles of adjuvant carboplatin/taxol on 11/18/2016 On 06/02/2017,repeat CT scan of chest/abdomen/plevis revealed mesenteric nodules in the region of the gastrohepatic ligament and perihepatic regions which could represent adenopathy, omental metastasis, not well appreciated on the prior examination as there was abdominal ascites that had resolved. On 09/29/2017,repeat CT scan of chest/abdomen/pelvis revealed evidence of disease progression. She started gemzar/avastin on 10/15/2017 On 01/07/2018,CA125 was progressing, up to 205. On 01/23/2018,repeat CT scan of chest/abdomen/pelvis revealed new small right pleural effusion,otherwise stable.Gemzar/avastin were discontinued. On 02/10/2018,she started carboplatin/doxil She was admitted to hospital on 04/01/2018 because of A fib and RVR,also had thoracentesis for pleural effusion,cytology was negative for malignancy,her fluid was likely cardiac.Her echocardiogram on 04/03/2018 revealed EF was 55%. She completed 6 cycles of carboplatin/doxil on 07/14/2018. She was admitted to hospital after cycle#6 for symptomatic anemia and worsening A-Fib Repeat CT scan of chest/abdomen/pelvis on 08/12/2018 revealed no evidence of disease progression She started lynparza on 09/09/2018,her CA125 was 254 when she started it it. On 11/04/2018,CA125 went up to 308.9,lynparza was discontinued. She started xeloda in 10/2018 On 03/01/2019,xeloda was held due to diarrhea and dehydration,worsening hand- foot syndrome. On 03/22/2019,CA125 was 368.7 On 04/12/2019,repeat CT scan of chest/abdomen/pelvis revealed evidence of disease progression with new liver lesions. When seen in the office on 04/19/19 she was very tired,weak, recurrent abdominal pain,generalized,using norco with relief, leg edema improved, chronic dyspnea. Ca 125 was up to 477.6. She and her family were advised by Dr. Badillo that her overall prognosis was felt to be poor, given progression after multiple lines of therapy and poor performance status. The patient didn't want active treatment at that time, and weekly carboplatin was suggested. She was supposed to start the same on 05/07/19. However she has not been able to do so as she was not feeling well, due to persistent nausea, with vomiting off and on, intermittent diarrhea, generalized weakness and poor appetite. She was to follow-up in the office on to discuss options, including comfort care. However due to progression of her multiple symptoms as noted above, as well as some perceived increasing shortness of breath or baseline, she came into the hospital and was admitted for further management. Consult was placed for further evaluation and a conditions. He denied any fevers/chills or obvious bleeding. Review of Systems Constitutional: Reports chronic pain, Reports fatigue, Reports malaise, Reports poor appetite, Reports weight loss Eyes: denies blurred vision, denies pain Ears: deny: decreased hearing, ear discharge, earache, tinnitus Ears, nose, mouth and throat: Denies headache, Denies sore throat Cardiovascular: Reports shortness of breath Respiratory: Reports dyspnea Gastrointestinal: Reports abdominal pain, Reports diarrhea, Reports nausea, Reports vomiting Genitourinary: Denies dysuria, Denies hematuria Menstruation: Reports postmenopausal Musculoskeletal: Reports muscle weakness Integumentary: Denies pruritus, Denies rash Neurological: Reports weakness Psychiatric: Reports as per HPI Endocrine: Reports fatigue, Reports weight change Hematologic/Lymphatic: Reports as per HPI Past Medical History Past Medical History: Atrial Fibrillation, Atrial Flutter, Cancer, Hyper lipidemia, Hypertension, Pulmonary Embolus (PE) Additional Past Medical History / Comment(s): Metastatic ovarian cancer with hysterectomy/debulking and chemotherapy last dose 07/14/18, pancytopenia d/t chemo, afib/flutter with RVR in past, 2 pulmonary embolisms that pt believes were on the R side, 04/10/18 pt had acute CHF with pleural effusion and R sided thoracentesis, diverticular disease. History of atrial fibrillation and the patient is a permanent pacemaker in place for now. History of Any Multi-Drug Resistant Organisms: None Reported Past Surgical History: Appendectomy, Cholecystectomy, Hysterectomy, Pacemaker, Tonsillectomy, Tubal Ligation Additional Past Surgical History / Comment(s): Debulking surgery approximately 2015, cervical polypectomies, colonoscopies. Pacemaker - 09-02-2018 Past Anesthesia/Blood Transfusion Reactions: Motion Sickness, Postoperative Nausea & Vomiting (PONV) Additional Past Anesthesia/Blood Transfusion Reaction / Comm: Pt believes she recieved blood with her debulking surgery. Type of Cardiac Device: Permanent Pacemaker Device Placement Date:: 09-02-2018 Past Psychological History: No Psychological Hx Reported Additional Psychological History / Comment(s): Pt resides with her spouse. She is independent. Smoking Status: Never smoker Past Alcohol Use History: Rare Past Drug Use History: None Reported - Past Family History Mother Family Medical History: AFIB, Chest Pain / Angina, Diabetes Mellitus, Hypertension Additional Family Medical History / Comment(s): Mother is 92 yrs old. Father Family Medical History: Cancer Additional Family Medical History / Comment(s): Father of lung cancer at the age of 78yrs. Medications and Allergies Home Medications Medication Instructions Recorded Confirmed Type Magnesium Oxide [Mag-Ox] 250 mg PO TID #1 tablet 08/05/18 05/18/19 Rx Apixaban [Eliquis] 2.5 mg PO BID 10/09/18 05/18/19 History Digoxin [Lanoxin] 125 mcg PO DAILY 01/27/19 05/18/19 History Spironolactone 25 mg PO DAILY 01/27/19 05/18/19 History Dronabinol [Marinol] 5 mg PO HS PRN 05/18/19 05/18/19 History Esomeprazole Magnesium [NexIUM 20 mg PO DAILY 05/18/19 05/18/19 History 24Hr] Furosemide [Lasix] 20 mg PO DAILY PRN 05/18/19 05/18/19 History HYDROcodone/APAP 10-325MG [[place] 1 tab PO QID PRN 05/18/19 05/18/19 History 10-325] Metoprolol Tartrate [Lopressor] 25 mg PO BID 05/18/19 05/18/19 History Prochlorperazine [Compazine] 10 mg PO Q6H PRN 05/18/19 05/18/19 History Allergies Allergy/AdvReac Type Severity Reaction Status Date / Time hydromorphone [From Dilaudid] AdvReac Hallucinati Verified 05/18/19 10:34 ons Physical Exam Vitals: Vital Signs Temp Pulse Pulse Pulse Resp BP BP 05/19/19 11:37 97.3 F L 66 15 91/57 05/19/19 05:26 97.4 F L 65 18 100/61 05/18/19 20:57 97.4 F L 87 18 96/64 05/18/19 16:00 59 L 14 05/18/19 15:19 97.5 F L 59 L 14 99/52 05/18/19 14:00 70 16 95/65 05/18/19 13:00 59 L 14 97/58 Pulse Ox 05/19/19 11:37 93 L 05/19/19 05:26 93 L 05/18/19 20:57 95 05/18/19 16:00 05/18/19 15:19 91 L 05/18/19 14:00 96 05/18/19 13:00 95 Intake and Output 05/18/19 05/19/19 05/19/19 22:59 06:59 14:59 Intake Total 600 Balance 600 Intake: Intake, IV Titration 600 Amount Sodium Chloride 0.9% 1, 600 000 ml @ 75 mls/hr IV . [id number] [facility] Rx#:[id number] Other: Voiding Method Toilet Bedside Commode # Voids 1 - Constitutional General appearance: no acute distress - EENT Eyes: EOMI, PERRLA ENT: hearing grossly normal, normal oropharynx - Neck Neck: no lymphadenopathy Thyroid: bilateral: normal size - Respiratory Respiratory: right: diminished - Cardiovascular Rhythm: regular Heart sounds: normal: S1, S2 - Gastrointestinal General gastrointestinal: normal bowel sounds, soft - Integumentary Integumentary: normal - Neurologic Neurologic: CNII-XII intact - Musculoskeletal Musculoskeletal: generalized weakness, strength equal bilaterally - Psychiatric Psychiatric: A&O x's 3, appropriate affect Results CBC & Chem 7: 05/18/19 10:59 05/18/19 10:59 Labs: Abnormal Lab Results - Last 24 Hours (Table) 05/18/19 Range/Units 19:39 Urine Appearance Cloudy H (Clear) Urine Protein 1+ H (Negative) Urine Ketones 1+ H (Negative) Urine Bilirubin 1+ H (Negative) Ur Leukocyte Esterase Small H (Negative) Urine WBC 14 H (0-5) /hpf Ur Squamous Epith Cells 6 H (0-4) /hpf Urine Bacteria Rare H (None) /hpf Hyaline Casts 688 H (0-2) /lpf Urine Mucus Many H (None) /hpf Chest x-ray: report reviewed CT scan - abdomen: report reviewed CT scan - pelvis: report reviewed Assessment and Plan (1) Nausea & vomiting Narrative/Plan: This has been ongoing chronically, over the last several weeks, with slow progression. The patient is having bowel movements and passing gas. On exam she does not have any evidence of definite obstruction but some degree of ileus or partial obstruction is possible from tumor progression. Supportive treatment with IV antiemetics. Check x-rays of the abdomen and pelvis Current Visit: Yes Status: Acute Code(s): R11.2 - NAUSEA WITH VOMITING, UNSPECIFIED SNOMED Code(s): 27791886 (2) Dehydration Narrative/Plan: Due to above, and diarrhea. IV hydration. The patient does feel somewhat b heber with hydration overnight Current Visit: Yes Status: Acute Code(s): E86.0 - DEHYDRATION SNOMED Code(s): 92955937 (3) Ovarian cancer Narrative/Plan: The patient has documented progressive disease on CT scan done in 04/15, as well as tumor markers. She has had a detailed discussion with Dr. Badillo, regarding options. Overall prognosis is felt to be poor, as noted in the HPI. As she didn't want active treatment at that time, she was supposed to start weekly carboplatin. However chances of a major response are not very high, as the patient has had this regimen before. However her performance status is too poor to permit a more aggressive regimen. The patient is well aware of the above. In addition, she has not been able to start treatment due to her multiple symptoms and progressive decline. I therefore again discussed options with her. Given her overall guarded prognosis, and limited options for active treatment with her current performance status, comfort care approach with hospice was discussed. The patient's questions were answered to the best of my ability. At this time she is open to the same, as she feels that her clinical decline over the last few weeks indicates that she will likely not do well with any active treatment. I will discuss further treatment, and if he is in agreement, informational consult to hospice will be placed. Continue supportive care in the meantime Current Visit: No Status: Acute Priority: Medium Code(s): C56.9 - MALIGNANT NEOPLASM OF UNSPECIFIED OVARY SNOMED Code(s): 800316975 (4) Pleural effusion Narrative/Plan: The patient does report shortness of breath, which is chronic and may be somewhat progressive. On questioning it is difficult to determine if this is tr ue shortness of breath or due to weakness. On exam she does have air entry into at least half or more of the right lung field. Her last chest x-ray showed stable right pleural effusion Chest x-ray will be repeated to see if there has been progression. Current Visit: No Status: Acute Code(s): J90 - PLEURAL EFFUSION, NOT ELSEWHERE CLASSIFIED SNOMED Code(s): 41556319 Plan: Defer to the admitting service for management of her multiple other medical problems
[2019-05-19 15:10] VITALS: BMI 24.7
--- NOTE | 2019-05-19 17:27 | XR ---
EXAMINATION TYPE: XR abdomen 2V DATE OF EXAM: 05/19/2019 COMPARISON: NONE HISTORY: Nausea and vomiting TECHNIQUE: 2 views supine and upright FINDINGS: There are some dilated air and fluid-filled small bowel loops in the mid abdomen. There is small amount of air in the transverse colon. There is no sign of free air. There is blunting of costo phrenic angles. There is some infiltrate and atelectasis at both lung bases. IMPRESSION: Dilated small bowel suggestive of ileus or mechanical bowel obstruction. No free air. Pleural effusions and basilar pulmonary atelectasis.
--- NOTE | 2019-05-19 17:28 | XR ---
EXAMINATION TYPE: XR chest 2V DATE OF EXAM: 05/19/2019 COMPARISON: 05/11/2019 HISTORY: Pleural effusion TECHNIQUE: Frontal and lateral views of the chest are obtained. FINDINGS: There is bilateral pleural effusions and larger on the right side. There is left axillary pacemaker noted. There is no definite heart failure. Bony thorax is intact. IMPRESSION: Bilateral moderate pleural effusions are increased compared to last exam. No obvious hea rt failure. Possible mild cardiomegaly.
[2019-05-19 20:37] VITALS: RESP 16
--- NOTE | 2019-05-19 21:07 | P.HPIM ---
History of Present Illness H&P Date: 05/19/19 Chief Complaint: Weak tired History of presenting complaint: This is a very pleasant 73-year-old patient of Dr. Roberts. Patient's oncologist Dr. Badillo. Patient has a diagnosis of metastatic ovarian cancer and has status post chemotherapy. Different regimens have been tried. The last visit seems treatment has not working. For at least 3 weeks patient is progressively getting weak and tired. Appetite is poor. Last chemotherapy was in November of this year. Finally more and more difficult to get about. Some swelling is present. No fever no chills. Overall very rundown. Admitted for the same. Review of systems: GEN.: Weak tired rundown poor appetite EYES: None HEENT: None NECK: None RESPIRATORY: Short of breath CARDIOVASCULAR: None GASTROINTESTINAL: None GENITOURINARY: None MUSCULOSKELETAL: Joint pains, muscle weakness] LYMPHATICS: None HEMATOLOGICAL: None PSYCHIATRY: None NEUROLOGICAL: None Past medical history to include: Atrial flutter fibrillation, hypertension, hyperlipidemia, pulmonary embolism, the studies were within cancer with hysterectomy debulking surgery and chemotherapy, pleural effusions with thoracentesis, diverticular disease, perm anent pacemaker. Social history: , lives with her . No smoking. Alcohol rarely. Physical examination: VITAL SIGNS: 97.4, 65, 17, 98/87, 97% room air GENERAL: BMI 24.8, laying in bed tired appearing. EYES: [Pupils equal. Conjunctiva pale l. HEENT: External appearance of nose and ears normal, oral cavity grossly normal. NECK: JVD not raised; masses not palpable. HEART: First and second heart sounds are normal; some edema. LUNGS: Respiratory rate normal; decreased breath sounds. ABDOMEN: Soft, mild tenderness, liver spleen not palpable, no masses palpable. PSYCH: Alert and oriented x3; mood and affect a bit lowl. NEUROLOGICAL: Cranial nerves grossly intact; no facial asymmetry, power and sensation grossly intact. LYMPHATICS: No lymph nodes palpable in the axilla and neck MUSCULOSKELETAL: Evidence of OA in the hands INVESTIGATIONS, reviewed in the clinical context: White count 5.8 hemoglobin 13.3 potassium 442 crit 1.15 EKG tracing personally reviewed by me-atrial flutter- fibrillation, rate controlled Chest x-ray film personally reviewed by me-right pleural effusion Assessment: -Metastatic ovarian cancer for which patient has received debulking surgery and chemotherapy. As he seems to be progressive in the current agents are not seem to be working anymore. Patient has discussed this with her oncologist Dr. Badillo. -Current symptoms of anorexia asthenia, medical debility all felt to be from progressive malignancy. No evidence of infection -Persistent atrial flutter fibrillation -Hyperlipidemia -Essential hypertension -(Pacemaker -Chronic congestive heart failure from gastric dysfunction EF 50-55% -Chronic kidney disease stage III from nephrosclerosis -CODE STATUS DO NOT RESUSCITATE Plan: -The discussion was held with the patient and the hospital. They do understand patient's guarded prognosis. Did talk about hospice. They will consider the same. INFORMATIONAL visit from the hospice. Home medications resumed. IV fluids are being given. Oral intake is encouraged. Dr. Weathers from oncology saw the patient earlier today. Past Medical History Past Medical History: Atrial Fibrillation, Atrial Flutter, Cancer, Hyperlipidemia, Hypertension, Pulmonary Embolus (PE) Additional Past Medical History / Comment(s): Metastatic ovarian cancer with hysterectomy/debulking and chemotherapy last dose 07/14/18, pancytopenia d/t chemo, afib/flutter with RVR in past, 2 pulmonary embolisms that pt believes were on the R side, 04/10/18 pt had acute CHF with pleural effusion and R sided thoracentesis, diverticular disease. History of atrial fibrillation and the patient is a permanent pacemaker in place for now. History of Any Multi-Drug Resistant Organisms: None Reported Past Surgical History: Appendectomy, Cholecystectomy, Hysterectomy, Pacemaker, Tonsillectomy, Tubal Ligation Additional Past Surgical History / Comment(s): Debulking surgery approximately 2015, cervical polypectomies, colonoscopies. Pacemaker - 09-02-2018 Past Anesthesia/Blood Transfusion Reactions: Motion Sickness, Postoperative Nausea & Vomiting (PONV) Additional Past Anesthesia/Blood Transfusion Reaction / Comment(s): Pt believes she recieved blood with her debulking surgery. Type of Cardiac Device: Permanent Pacemaker Device Placement Date:: 09-02-2018 Past Psychological History: No Psychological Hx Reported Additional Psychological History / Comment(s): Pt resides with her spouse. She is independent. Smoking Status: Never smoker Past Alcohol Use History: Rare Past Drug Use History: None Reported - Past Family History Mother Family Medical History: AFIB, Chest Pain / Angina, Diabetes Mellitus, Hypertension Additional Family Medical History / Comment(s): Mother is 92 yrs old. Father Family Medical History: Cancer Additional Family Medical History / Comment(s): Father of lung cancer at the age of 78yrs. Medications and Allergies Home Medications Medication Instructions Recorded Confirmed Type Magnesium Oxide [Mag-Ox] 250 mg PO TID #1 tablet 08/05/18 05/18/19 Rx Apixaban [Eliquis] 2.5 mg PO BID 10/09/18 05/18/19 History Digoxin [Lanoxin] 125 mcg PO DAILY 01/27/19 05/18/19 History Spironolactone 25 mg PO DAILY 01/27/19 05/18/19 History Dronabinol [Marinol] 5 mg PO HS PRN 05/18/19 05/18/19 History Esomeprazole Magnesium [NexIUM 20 mg PO DAILY 05/18/19 05/18/19 History 24Hr] Furosemide [Lasix] 20 mg PO DAILY PRN 05/18/19 05/18/19 History HYDROcodone/APAP 10-325MG [[place] 1 tab PO QID PRN 05/18/19 05/18/19 History 10-325] Metoprolol Tartrate [Lopressor] 25 mg PO BID 05/18/19 05/18/19 History Prochlorperazine [Compazine] 10 mg PO Q6H PRN 05/18/19 05/18/19 History Allergies Allergy/AdvReac Type Severity Reaction Status Date / Time hydromorphone [From Dilaudid] AdvReac Hallucinati Verified 05/18/19 10:34 ons Physical Exam Vitals: Vital Signs Temp Pulse Pulse Pulse Resp BP BP 05/19/19 05:26 97.4 F L 65 18 100/61 05/18/19 20:57 97.4 F L 87 18 96/64 05/18/19 16:00 59 L 14 05/18/19 15:19 97.5 F L 59 L 14 99/52 05/18/19 14:00 70 16 95/65 05/18/19 13:00 59 L 14 97/58 05/18/19 12:00 84 15 104/65 05/18/19 11:11 80 16 05/18/19 10:43 97.6 F 82 16 104/65 Pulse Ox 05/19/19 05:26 93 L 05/18/19 20:57 95 05/18/19 16:00 05/18/19 15:19 91 L 05/18/19 14:00 96 05/18/19 13:00 95 05/18/19 12:00 95 05/18/19 11:11 05/18/19 10:43 98 Intake and Output 05/18/19 05/19/19 05/19/19 22:59 06:59 14:59 Intake Total 600 Balance 600 Intake: Intake, IV Titration 600 Amount Sodium Chloride 0.9% 1, 600 000 ml @ 75 mls/hr IV . [id number] [facility] Rx#:[id number] Other: Voiding Method Toilet Bedside Commode # Voids 1 Results CBC & Chem 7: 05/18/19 10:59 05/18/19 10:59 Labs: Abnormal Lab Results - Last 24 Hours (Table) 05/18/19 05/18/19 05/18/19 Range/Units 10:59 10:59 19:39 MCV 101.8 H (80.0-100.0) fL Lymphocytes # 0.5 L (1.0-4.8) k/uL Sodium 135 L (137-145) mmol/L Chloride 93 L (98-107) mmol/L BUN 42 H (7-17) mg/dL Creatinine 1.15 H (0.52-1.04) mg/dL Glucose 108 H (74-99) mg/dL Albumin 3.3 L (3.5-5.0) g/dL Urine Appearance Cloudy H (Clear) Urine Protein 1+ H (Negative) Urine Ketones 1+ H (Negative) Urine Bilirubin 1+ H (Negative) Ur Leukocyte Esterase Small H (Negative) Urine WBC 14 H (0-5) /hpf Ur Squamous Epith Cells 6 H (0-4) /hpf Urine Bacteria Rare H (None) /hpf Hyaline Casts 688 H (0-2) /lpf Urine Mucus Many H (None) /hpf Thrombosis Risk Factor Assmnt - Choose All That Apply Each Risk Factor Represents 2 Points: Age 61-74 years Each Risk Factor Represents 3 Points: Family history of DVT/PE Thrombosis Risk Factor Assessment Total Risk Factor Score: 5 Thrombosis Risk Factor Assessment Level: High Risk
[2019-05-20] MEDS: SODIUM CHLORIDE 0.9% 1,000 ML IV SCH (07:15)
[2019-05-20] MEDS: APIXABAN 2.5 MG TABLET PO SCH (08:33)
[2019-05-20] MEDS: METOPROLOL TARTRATE 25 MG TAB PO SCH (08:34)
[2019-05-20 12:24] VITALS: BP 93/61; PULSE 58; TEMP 97.6
--- NOTE | 2019-05-21 17:28 | P.PN ---
Subjective Progress Note Date: 05/20/19 The patient states that she feels slightly better with IV hydration as well as antibiotics. She however remains very weak. Pain is well controlled at this time. Objective - Vital Signs Vital signs: Vital Signs Temp 97.6 F 05/20/19 12:22 Pulse 58 L 05/20/19 12:22 Resp 16 05/20/19 12:22 BP 93/61 05/20/19 12:22 Pulse Ox 99 05/20/19 12:22 Intake & Output 05/20/19 05/21/19 05/21/19 18:59 06:59 18:59 Intake Total 2760 Output Total 4 Balance 2756 Intake: Oral 2760 Output: Urine 4 Other: Voiding Method Toilet Bedside Commode # Voids 1 - Constitutional General appearance: Present: no acute distress - EENT Eyes: Present: EOMI ENT: Present: hearing grossly normal, normal oropharynx - Respiratory Respiratory: right: diminished - Cardiovascular Rhythm: regular Heart sounds: normal: S1, S2 - Gastrointestinal General gastrointestinal: Present: decreased bowel sounds, distended - Integumentary Integumentary: Present: normal - Neurologic Neurologic: Present: CNII-XII intact - Musculoskeletal Musculoskeletal: Present: generalized weakness, strength equal bilaterally - Psychiatric Psychiatric: Present: A&O x's 3, appropriate affect - Labs CBC & Chem 7: 05/18/19 10:59 05/18/19 10:59 Assessment and Plan (1) Nausea & vomiting Narrative/Plan: The patient is symptomatically improved with antibiotics and bowel rest. She had abdominal x-ray which shows evidence of ileus versus obstruction as the cause. Status: Acute Code(s): R11.2 - NAUSEA WITH VOMITING, UNSPECIFIED SNOMED Code(s): 25931466 (2) Dehydration Narrative/Plan: The patient is clinically improved and feels somewhat stronger with IV hydration. Status: Acute Code(s): E86.0 - DEHYDRATION SNOMED Code(s): 57846166 (3) Ovarian cancer Narrative/Plan: The patient has progressive disease and progressive symptoms. The findings on abdominal x-ray representing ileus/obstruction are a manifestation of the same. The case was discussed in detail with her primary oncologist Dr. Badillo. He had confirmed that the patient's performance status had been quite poor even when she had been seen in the office. Single agent carboplatin had been recommended as it was felt that the patient would not really be able to tolerate any regimen that was stronger. However she had had this chemotherapy at least twice before, the chances of any clinical benefit from this would be quite slim. Given her poor performance status, there are significant doubts about her ability to even handle this regimen. At this time, with the patient's performance status declining even further due to progressive disease, it is very unlikely that she would be able to tolerate any aggressive treatment. The chances of severe adverse events would be quite high in a clinical benefit quite low. Therefore he was in agreement that at this time it would be reasonable to consider comfort care. The above was discussed with the patient. She expressed understanding and a greement, and was agreeable to hospice consult. This has been placed. Case was also discussed with the admitting service. The patient will be discharged home on hospice., Once arrangements are made. Status: Acute Priority: Medium Code(s): C56.9 - MALIGNANT NEOPLASM OF UNSPECIFIED OVARY SNOMED Code(s): 017711827 (4) Pleural effusion Narrative/Plan: There appears to be some increase in bilateral pleural effusions. However the patient's symptoms are reasonably controlled at this time with medications and oxygen. She is proceeding with comfort care as noted above Status: Acute Code(s): J90 - PLEURAL EFFUSION, NOT ELSEWHERE CLASSIFIED SNOMED Code(s): 14919396
--- NOTE | 2019-05-21 21:19 | P.DS ---
Providers Date of admission: 05/20/19 09:09 Expected date of discharge: 05/20/19 Attending physician: Bryce Romero Consults: 05/18/19 12:35 Consult Physician Urgent Consulting Provider: Enrrique Badillo Consult Reason/Comments: Oncological care Do you want consulting provider notified?: Yes [facility] Course: Chief Complaint: Weak tired Hospital course: This is a very pleasant 73-year-old patient of Dr. Roberts. Patient's oncologist Dr. Badillo. Patient has a diagnosis of metastatic ovarian cancer and has status post chemotherapy. Different regimens have been tried. The last visit seems treatment has not working. For at least 3 weeks patient is progressively getting weak and tired. Appetite is poor. Last chemotherapy was in November of this year. Finally more and more difficult to get about. Some swelling is present. No fever no chills. Overall very rundown. Today-patient did get some IV fluids. Did have some oral intake. Patient's son is present. Had a lengthy talk with the patient and the son. Several questions were answered. Patient wishes to go home with hospice. [facility]. Spoke to the associate media planner. Arrangements are being made. Also discussed with Dr. Weathers. Discussion and discharge planning more than 35 minutes. Physical examination: VITAL SIGNS: 97.6, 58, 16, para 3/61, N percent room air GENERAL: Laying bed, tired. EYES: Pupils equal. Conjunctiva pale HEENT: External appearance of nose and ears normal, oral cavity grossly normal. NECK: JVD not raised; masses not palpable. HEART: First and second heart sounds are normal; some edema. LUNGS: Respiratory rate normal; decreased breath sounds. ABDOMEN: Soft, mild tenderness, liver spleen not palpable, no masses palpable. PSYCH: Alert and oriented x3; mood and affect a bit low INVESTIGATIONS, reviewed in the clinical context: White count 5.8 hemoglobin 13.3 potassium 442 crit 1.15 EKG tracing personally reviewed by me-atrial flutter- fibrillation, rate controlled Chest x-ray film personally reviewed by me-right pleural effusion Assessment: -Metastatic ovarian cancer for which patient has received debulking surgery and chemotherapy. As he seems to be progressive in the current agents are not seem to be working anymore. Patient has discussed this with her oncologist Dr. Badillo. -Current symptoms of anorexia asthenia, medical debility all felt to be from progressive malignancy. 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 EF 50-55% -Chronic kidney disease stage III from nephrosclerosis -CODE STATUS DO NOT RESUSCITATE Plan: Home with family with [facility] Patient Condition at Discharge: Poor Plan - Discharge Summary New Discharge Prescriptions: Continue Apixaban [Eliquis] 2.5 mg PO BID Prochlorperazine [Compazine] 10 mg PO Q6H PRN PRN Reason: Nausea HYDROcodone/APAP 10-325MG [[place] 10-325] 1 tab PO QID PRN PRN Reason: Pain Dronabinol [Marinol] 5 mg PO HS PRN PRN Reason: APPET Metoprolol Tartrate [Lopressor] 25 mg PO BID Esomeprazole Magnesium [NexIUM 24Hr] 20 mg PO DAILY Discontinued Magnesium Oxide [Mag-Ox] 250 mg PO TID #1 tablet Digoxin [Lanoxin] 125 mcg PO DAILY Spironolactone 25 mg PO DAILY Furosemide [Lasix] 20 mg PO DAILY PRN PRN Reason: Edema Discharge Medication List Apixaban [Eliquis] 2.5 mg PO BID 10/09/18 [History] Dronabinol [Marinol] 5 mg PO HS PRN 05/18/19 [History] Esomeprazole Magnesium [NexIUM 24Hr] 20 mg PO DAILY 05/18/19 [History] HYDROcodone/APAP 10-325MG [[place] 10-325] 1 tab PO QID PRN 05/18/19 [History] Metoprolol Tartrate [Lopressor] 25 mg PO BID 05/18/19 [History] Prochlorperazine [Compazine] 10 mg PO Q6H PRN 05/18/19 [History] Follow up Appointment(s)/Referral(s): Sergey Roberts DO [Primary Care Provider] - 1-2 days (Dr. Roberts's office will call patient with an appointment date and time. ) [facility], [REFERRING] - 1 Week Patient Instructions/Handouts: Dehydration (DC), Acute Nausea and Vomiting (DC) Activity/Diet/Wound Care/Special Instructions: Home with [facility]. Contact hospice [facility] before discharge. Discharge Disposition: HOME SELF-CARE
== END 2019-05-20 15:05 | disposition hospice, home (50) | DRG 755 ==
LOC: EC 08:36 → 3NMEDONC 13:07 → OBSVTOIN 05-20 09:09
PROVIDERS: ADMIT Hospitalist; ATTEND Hospitalist
DX: C56.9 Malignant neoplasm of unspecified ovary (principal); C79.9 Secondary malignant neoplasm of unspecified site; I13.0 Hypertensive heart and chronic kidney disease with heart failure and stage 1 through stage 4 chronic kidney disease, or unspecified chronic kidney disease; I48.19 Other persistent atrial fibrillation; I48.92 Unspecified atrial flutter; I50.32 Chronic diastolic (congestive) heart failure; K56.7 Ileus, unspecified; C78.7 Secondary malignant neoplasm of liver and intrahepatic bile duct; J90 Pleural effusion, not elsewhere classified; E86.0 Dehydration; Z66 Do not resuscitate; Z51.5 Encounter for palliative care; R11.2 Nausea with vomiting, unspecified; N18.3 Chronic kidney disease, stage 3 (moderate); I45.10 Unspecified right bundle-branch block; R63.0 Anorexia; E78.5 Hyperlipidemia, unspecified; K57.90 Diverticulosis of intestine, part unspecified, without perforation or abscess without bleeding; R59.9 Enlarged lymph nodes, unspecified; R06.02 Shortness of breath; Z79.01 Long term (current) use of anticoagulants; Z79.899 Other long term (current) drug therapy; Z88.5 Allergy status to narcotic agent; Z86.711 Personal history of pulmonary embolism; Z90.710 Acquired absence of both cervix and uterus; Z95.0 Presence of cardiac pacemaker; Z92.21 Personal history of antineoplastic chemotherapy; Z90.49 Acquired absence of other specified parts of digestive tract; Z98.51 Tubal ligation status; Z80.1 Family history of malignant neoplasm of trachea, bronchus and lung; Z82.49 Family history of ischemic heart disease and other diseases of the circulatory system; Z83.3 Family history of diabetes mellitus
CPT/HCPCS: 36415; 71046; 74019; 80053; 80162; 81001; 85025; 93005; 96361; 96372; 96374; 96375; 99285